=== PATIENT | female | born 1970 | race Caucasian/White ===

== ENCOUNTER → 2016-06-11 | Outpatient (CLI) | payer OTHER ==
--- NOTE | 2016-06-11 17:03 | XR ---
EXAMINATION TYPE: XR hand limited bilateral DATE OF EXAM: 06/11/2016 3:06 PM COMPARISON: NONE HISTORY: Bilateral hand pain TECHNIQUE: 2 views bilateral hands FINDINGS: Left hand: No acute fractures are evident. There is narrowing of the proximal and to lesser degree di stal interphalangeal joint spaces. Soft tissues are normal. Right hand: No acute fractures are evident. Joint spaces and mild narrowing of the proximal interphal angeal joint spaces. Mild narrowing of the distal interphalangeal joint spaces is not excluded. Soft tissues are normal. IMPRESSION: 1. Suggestion of some degenerative changes within the bilateral fingers.
--- NOTE | 2016-06-11 17:04 | XR ---
EXAMINATION TYPE: XR wrist limited bilateral DATE OF EXAM: 06/11/2016 3:07 PM COMPARISON: NONE HISTORY: Pain TECHNIQUE: 2 views bilateral wrists FINDINGS: Left wrist: No acute fractures are evident. Joint spaces are preserved. No fractures are evident. Right wrist: Mild soft tissue swelling may be present. Joint spaces are preserved. No fractures are e vident. IMPRESSION: 1. Mild soft tissue swelling right wrist. 2. No acute osseous abnormality evident bilateral wrists.
== END ==
LOC: RADXRMAIN 14:20
PROVIDERS: ATTEND Internal Medicine
DX: M79.89 Other specified soft tissue disorders (principal)

== ENCOUNTER 2017-03-20 17:47 | Emergency (ER) | payer MEDICAID, OTHER ==
--- NOTE | 2017-03-20 18:21 | ED ---
General Adult HPI - General Chief complaint: Psychiatric Symptoms Stated complaint: Depression Time Seen by Provider: 03/20/17 18:00 Source: patient, RN notes reviewed Mode of arrival: ambulatory Limitations: no limitations - History of Present Illness Initial comments: This is a 46 her old female presents emergency department stating that she wants to harm herself. Patient states she's not sure what she wants to but she just wants to make the pain go away. Patient states she has been fighting with her boyfriend about his drinking for the last week and over the last couple of days is gotten considerably worse. Patient states she just can't stand it anymore and she doesn't know if she stays home if she can be safe. Patient denies any drinking or drug use herself. Patient denies any physical complaints today. Patient denies headache patient denies numbness weakness. Patient denies any abdominal pain patient denies nausea or vomiting. - Related Data Home Medications Medication Instructions Recorded Confirmed rOPINIRole HCL [Requip] 3 mg PO HS 11/09/15 03/20/17 Citalopram Hydrobromide [CeleXA] 20 mg PO DAILY 03/20/17 03/20/17 buPROPion HCL [Wellbutrin XL] 300 mg PO DAILY 03/20/17 03/20/17 buPROPion XL [Wellbutrin Xl] 150 mg PO DAILY 03/20/17 03/20/17 Allergies Allergy/AdvReac Type Severity Reaction Status Date / Time Sulfa (Sulfonamide AdvReac Nausea & Verified 03/20/17 18:22 Antibiotics) Vomiting sulfamethoxazole AdvReac Nausea & Verified 03/20/17 18:22 [From Bactrim] Vomiting trimethoprim [From Bactrim] AdvReac Nausea & Verified 03/20/17 18:22 Vomiting Review of Systems ROS Statement: Those systems with pertinent positive or pertinent negative responses have been documented in the HPI. ROS Other: All systems not noted in ROS Statement are negative. Past Medical History Past Medical History: Pneumonia Additional Past Medical History / Comment(s): HEAD INJURY, kidney stones, RLS., PT STATES NO CHANGES TO HEALTH HX SINCE HX SHE WAS HOSPITALIZED FOR KIDNEY STONE PROCEDURE WITH NEPHROSTOMY TUBE (11/15/2015). History of Any Multi-Drug Resistant Organisms: None Reported Past Surgical History: Section, Tubal Ligation Additional Past Surgical History / Comment(s): rush. nephrostolithotomy, NEPHROSTOLITHOTOMY 11/15/15. Past Anesthesia/Blood Transfusion Reactions: No Reported Reaction Past Psychological History: Anxiety, Depression Smoking Status: Current every day smoker Past Alcohol Use History: None Reported Past Drug Use History: None Reported - Past Family History Father Family Medical History: Coronary Artery Disease (CAD), Diabetes Mellitus Sister(s) Family Medical History: Diabetes Mellitus Mother Family Medical History: Cancer, Diabetes Mellitus Additional Family Medical History / Comment(s): LUNG General Exam - General Exam Comments Initial Comments: GENERAL: Patient is well-developed and well-nourished. Patient is nontoxic and well- hydrated and is in no acute distress. ENT: Neck is soft and supple. No significant lymphadenopathy is noted. Oropharynx is clear. Moist mucous membranes. Neck has full range of motion without eliciting any pain. EYES: The sclera were anicteric and conjunctiva were pink and moist. Extraocular movements were intact and pupils were equal round and reactive to light. Eyelids were unremarkable. PULMONARY: Unlabored respirations. Good breath sounds bilaterally. CARDIOVASCULAR: There is a regular rate and rhythm without any murmurs gallops or rubs. SKIN: Skin is clear with no lesions or rashes and otherwise unremarkable. NEUROLOGIC: Patient is alert and oriented x3. Cranial nerves II through XII are grossly intact. Motor and sensory are also intact. Normal speech, volume and content. Symmetrical smile. MUSCULOSKELETAL: Normal extremities with adequate strength and full range of motion. LYMPHATICS: No significant lymphadenopathy is noted PSYCHIATRIC: Patient is very tearful states she is looking to harm her self and does not feel safe at home by herself. Patient also is very flat affect. Limitations: no limitations Course Vital Signs 03/20/17 03/20/17 17:56 18:48 Temperature 99.2 F Pulse Rate 104 H Respiratory 20 Rate Blood Pressure 209/121 152/94 O2 Sat by Pulse 99 Oximetry Medical Decision Making - Medical Decision Making EPS came down to evaluate the patient and decided after speaking with the psychiatrist that the patient to be discharged home with a follow-up plan that the patient and the patient's sister agreed to - Lab Data Lab Results 03/20/17 03/20/17 Range/Units 18:45 18:45 Urine HCG, Qual Not Detected (Not Detectd) Urine Opiates Screen Not Detected (NotDetected) Ur Oxycodone Screen Not Detected (NotDetected) Urine Methadone Screen Not Detected (NotDetected) Ur Propoxyphene Screen Not Detected (NotDetected) Ur Barbiturates Screen Not Detected (NotDetected) U Tricyclic Antidepress Not Detected (NotDetected) Ur Phencyclidine Scrn Not Detected (NotDetected) Ur Amphetamines Screen Not Detected (NotDetected) U Methamphetamines Scrn Not Detected (NotDetected) U Benzodiazepines Scrn Not Detected (NotDetected) Urine Cocaine Screen Not Detected (NotDetected) U Marijuana (THC) Screen Not Detected (NotDetected) Disposition Clinical Impression: Situational depression Disposition: HOME SELF-CARE Condition: Good Instructions: Depression (ED) Referrals: Ramiro Chávez MD [Primary Care Provider] - 1-2 days Time of Disposition: 20:00
[2017-03-20 20:10] VITALS: BP 164/95; PULSE 86; RESP 16; TEMP 97.6
== END 2017-03-20 20:11 | disposition home or self-care (01) ==
LOC: EC 17:47
DX: F43.21 Adjustment disorder with depressed mood (principal); R45.851 Suicidal ideations; G25.81 Restless legs syndrome; F17.200 Nicotine dependence, unspecified, uncomplicated; Z79.899 Other long term (current) drug therapy; Z88.1 Allergy status to other antibiotic agents; Z88.2 Allergy status to sulfonamides
CPT/HCPCS: 80306; 81025; 82075; 99284

== ENCOUNTER → 2017-11-14 | Outpatient (CLI) | payer SELFPAY ==
--- NOTE | 2017-11-14 11:19 | XR ---
EXAMINATION TYPE: XR finger or thumb bilateral DATE OF EXAM: 11/14/2017 COMPARISON: NONE HISTORY: Pain left second and right fourth fingers. TECHNIQUE: 3 views of the above fingers are obtained. FINDINGS: No acute fracture or dislocation is seen in the right fourth finger or the left second fing er. Joint spaces are preserved. Overlying soft tissue is unremarkable. IMPRESSION: As above.
== END | disposition home or self-care (01) ==
LOC: RADXRMAIN 10:43
PROVIDERS: ATTEND Family Medicine
DX: M79.645 Pain in left finger(s) (principal); M79.644 Pain in right finger(s)

== ENCOUNTER 2018-01-30 13:09 | Observation (INO) | payer OTHER ==
[2018-01-30] MEDS ORDERED: ASPIRIN 81 MG PO STA (13:41)
--- NOTE | 2018-01-30 14:13 | XR ---
EXAMINATION TYPE: XR chest 2V DATE OF EXAM: 01/30/2018 COMPARISON: NONE HISTORY: Chest pain TECHNIQUE: Frontal and lateral views of the chest are obtained. FINDINGS: There is no focal air space opacity, pleural effusion, or pneumothorax seen. Strand-like bibasilar atelectasis is seen at the lung bases. The cardiac silhouette size is upper limits of pj l. The osseous structures are intact. IMPRESSION: Minimal bibasilar subsegmental atelectasis otherwise no acute cardiopulmonary process.
[2018-01-30 14:15] LABS: Basophils % (A) 1 %; Eosinophils # (A) 0.3 k/uL (0-0.7); Eosinophils % (A) 5 %; HCT 43.7 % (34.0-46.0); HGB 14.5 gm/dL (11.4-16.0); Lymphocytes # (A) 2.2 k/uL (1.0-4.8); Lymphocytes % (A) 31 %; MCH 29.5 pg (25.0-35.0); MCHC 33.2 g/dL (31.0-37.0); MCV 88.6 fL (80.0-100.0); Mean Platelet Volume 7.2; Monocytes # (A) 0.3 k/uL (0-1.0); Monocytes % (A) 4 %; Neutrophils # (A) 4.2 k/uL (1.3-7.7); Neutrophils % (A) 58 %; Platelet Count 258 k/uL (150-450); RBC 4.93 m/uL (3.80-5.40); RDW 13.4 % (11.5-15.5); WBC 7.2 k/uL (3.8-10.6)
[2018-01-30 14:25] LABS: Partial Thromboplastin Time 26.6 sec (22.0-30.0); Prothrombin Time 9.9 sec (9.0-12.0)
[2018-01-30 14:29] LABS: Albumin 4.4 g/dL (3.5-5.0); Calcium 9.8 mg/dL (8.4-10.2); Magnesium 2.1 mg/dL (1.6-2.3); Potassium 4.8 mmol/L (3.5-5.1); Total Bilirubin 0.5 mg/dL (0.2-1.3); Total Protein 8.1 g/dL (6.3-8.2)
[2018-01-30] MEDS ORDERED: SODIUM CHLORIDE 0.9% 500 ML 500 ML IV ONE (14:38)
[2018-01-30 14:41] LABS: Creatine Kinase 144 U/L (30-135)
--- NOTE | 2018-01-30 14:46 | ED ---
Chest Pain HPI - General Chief Complaint: Chest Pain Stated Complaint: sharp chest pain Time Seen by Provider: 01/30/18 13:40 Source: patient, RN notes reviewed Mode of arrival: ambulatory Limitations: no limitations - History of Present Illness Initial Comments: This a 47-year-old female sent emergency Department chief complaint of left- sided chest pain. Patient states started around noon. Patient states that she was at work when this pain started she had sharp pain in the medial to left side. Patient states that she's never had any like this in the past. She did admit that radiated to her back and left shoulder region. She states her left shoulder feels heavy. She did become nauseated and diaphoretic when symptoms started. Patient states pain is slightly worse with movement at this time and with deep inspiration. Denies any shortness breath she is a daily smoker. She does have a history of family heart disease but denies hypertension hyperlipidemia and diabetes. Patient denies any trauma. 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 - Related Data Home Medications Medication Instructions Recorded Confirmed Citalopram Hydrobromide [CeleXA] 20 mg PO DAILY 03/20/17 01/30/18 buPROPion HCL [Wellbutrin XL] 300 mg PO DAILY 03/20/17 01/30/18 buPROPion XL [Wellbutrin Xl] 150 mg PO DAILY 03/20/17 01/30/18 Meloxicam [Mobic] 15 mg PO DAILY 01/30/18 01/30/18 rOPINIRole HCL [Requip] 1 mg PO HS 01/30/18 01/30/18 Allergies Allergy/AdvReac Type Severity Reaction Status Date / Time Sulfa (Sulfonamide AdvReac Nausea & Verified 01/30/18 14:24 Antibiotics) Vomiting sulfamethoxazole AdvReac Nausea & Verified 01/30/18 14:24 [From Bactrim] Vomiting trimethoprim [From Bactrim] AdvReac Nausea & Verified 01/30/18 14:24 Vomiting Review of Systems ROS Statement: Those systems with pertinent positive or pertinent negative responses have been documented in the HPI. ROS Other: All systems not noted in ROS Statement are negative. EKG Findings - EKG Comments: EKG Findings:: EKG performed at 13:20 normal sinus rhythm with rate of 72 WI 176 QRS 86 QTC/QTC 396/433 Past Medical History Past Medical History: Pneumonia Additional Past Medical History / Comment(s): HEAD INJURY, kidney stones, RLS. History of Any Multi-Drug Resistant Organisms: None Reported Past Surgical History: Section, Joint Replacement, Tubal Ligation Additional Past Surgical History / Comment(s): rush. nephrostolithotomy, NEPHROSTOLITHOTOMY 11/15/15. nephrostomy tubes and removal, hip replacement Past Anesthesia/Blood Transfusion Reactions: No Reported Reaction Past Psychological History: Anxiety, Depression Smoking Status: Current every day smoker Past Alcohol Use History: None Reported Past Drug Use History: None Reported - Past Family History Father Family Medical History: Coronary Artery Disease (CAD), Diabetes Mellitus Sister(s) Family Medical History: Diabetes Mellitus Mother Family Medical History: Cancer, Diabetes Mellitus Additional Family Medical History / Comment(s): LUNG General Exam Limitations: no limitations General appearance: alert, in no apparent distress Head exam: Present: atraumatic, normocephalic, normal inspection Neck exam: Present: normal inspection, full ROM. Absent: tenderness, meningismus, lymphadenopathy Respiratory exam: Present: normal lung sounds bilaterally, chest wall tenderness. Absent: respiratory distress, wheezes, rales, rhonchi, stridor Cardiovascular Exam: Present: regular rate, normal rhythm, normal heart sounds. Absent: systolic murmur, diastolic murmur, rubs, gallop, clicks GI/Abdominal exam: Present: soft, normal bowel sounds. Absent: distended, tenderness, guarding, rebound, rigid Extremities exam: Present: other (Pulses equal upper and lower extremity) Neurological exam: Present: alert, oriented X3, CN II-XII intact Course Vital Signs 01/30/18 01/30/18 13:10 15:12 Temperature 97.8 F Pulse Rate 76 64 Respiratory 18 18 Rate Blood Pressure 126/83 139/88 O2 Sat by Pulse 97 99 Oximetry Disposition Clinical Impression: Chest pain Disposition: ADMITTED IP TO THIS HOSP Condition: Stable Referrals: Ramiro Chávez MD [Primary Care Provider] - 1-2 days
[2018-01-30 14:53] LABS: Creatine Kinase MB 2.9 ng/mL (0.0-2.4); Troponin I <0.012 ng/mL (0.000-0.034)
--- NOTE | 2018-01-30 15:17 | CT ---
EXAMINATION TYPE: CT chest angio for PE DATE OF EXAM: 01/30/2018 COMPARISON: NONE HISTORY: chest pain CT DLP: 385.9 mGycm. Automated Exposure Control for Dose Reduction was Utilized. CONTRAST: CTA scan of the thorax is performed with IV Contrast, patient injected with 100 mL of Isovue 370, pul monary embolism protocol. MIP Images are created on CT scanner and reviewed. FINDINGS: LUNGS: Elongated right middle lobe were created centimeter peripherally spiculated density abuts the mediastinal border with adjacent 3 mm pulmonary nodule on lung algorithm image 70. Another subpleural 3 mm right middle lobe pulmonary nodule is seen on image 81. There are geographic areas of round gla ss opacity throughout the lungs, more confluent in the left upper lobe posteriorly on image 51 measur ing 7 mm. This could represent a confluent groundglass opacity or true groundglass pulmonary nodule. No pleural effusion is seen. MEDIASTINUM: There is satisfactory enhancement of the pulmonary artery and its branches, there is no CT evidence for pulmonary embolism. There are no greater than 1 cm hilar or mediastinal lymph nodes. No cardiomegaly or pericardial effusion is seen. OTHER: Thyroid gland is diffusely heterogenous and grossly enlarged with the thyroid isthmus measuri ng up to 3.1 cm. There is no tracheal deviation noted. Probable small splenule is seen medial to the [facility] spleen posterior to the left adrenal gland. IMPRESSION: 1. No evidence of pulmonary embolus. 2. Markedly enlarged heterogenous thyroid gland for which full characterization with thyroid ultrasou nd as necessary likely warranting percutaneous biopsy given its size as the isthmus measures up to 3. 1 cm (abnormal 1.0 cm). 3. Diffuse geographic groundglass opacities are nonspecific but can be seen and fluid overload, pneum onitis or multifocal atelectasis. Additionally there is a confluent nodular right middle lobe density that could represent atelectasis or pulmonary nodule. Small pulmonary nodules are seen and therefore short-term follow-up is recommended pending evaluation of the above thyroid abnormality.
[2018-01-30] MEDS ORDERED: NITROGLYCERIN SL TABS 0.4 MG TAB SUBLINGUAL PRN (16:10)
[2018-01-30] MEDS ORDERED: HEPARIN SODIUM,PORCINE 5,000 UNIT/ML 1 ML VIAL IV ONE (16:10)
[2018-01-30] MEDS ORDERED: HEPARIN SOD,PORK IN 0.45% NACL 25,000 UNIT in 0.45% NACL 1 500ML.BAG IV SCH (16:15)
--- NOTE | 2018-01-30 16:59 | P.HPIM ---
History of Present Illness H&P Date: 01/30/18 (Done while covering for Ramiro Chávez) Chief Complaint: Chest pain for 2 days 47-year-old female was seen evaluated examined in the emergency department this patient has been doing well but about 2 days ago started having retrosternal pleuritic-type of chest pain also has some cough with intermittent thick sputum production, patient has been a smoker about 1 pack per day denies any similar episode in the past, on arrival to emergency department patient underwent a computed tomography scan of the chest, no pulmonary embolism was seen him a large nystagmus of the thyroid gland was seen multiple small subcentimeter nodules were seen some groundglass patchy attenuation has been noted as well, patient denies any seizure-like to a loss of consciousness or hemiparesis, denies any night sweats fever or chills, denies any bowel or bladder dysfunction Review of Systems All systems: negative Past Medical History Past Medical History: Pneumonia Additional Past Medical History / Comment(s): HEAD INJURY, kidney stones, RLS. History of Any Multi-Drug Resistant Organisms: None Reported Past Surgical History: Section, Joint Replacement, Tubal Ligation Additional Past Surgical History / Comment(s): rush. nephrostolithotomy, NEPHROSTOLITHOTOMY 11/15/15. nephrostomy tubes and removal, hip replacement Past Anesthesia/Blood Transfusion Reactions: No Reported Reaction Past Psychological History: Anxiety, Depression Smoking Status: Current every day smoker Past Alcohol Use History: None Reported Past Drug Use History: None Reported - Past Family History Father Family Medical History: Coronary Artery Disease (CAD), Diabetes Mellitus Sister(s) Family Medical History: Diabetes Mellitus Mother Family Medical History: Cancer, Diabetes Mellitus Additional Family Medical History / Comment(s): LUNG Medications and Allergies Home Medications Medication Instructions Recorded Confirmed Type Citalopram Hydrobromide [CeleXA] 20 mg PO DAILY 03/20/17 01/30/18 History buPROPion HCL [Wellbutrin XL] 300 mg PO DAILY 03/20/17 01/30/18 History buPROPion XL [Wellbutrin Xl] 150 mg PO DAILY 03/20/17 01/30/18 History Meloxicam [Mobic] 15 mg PO DAILY 01/30/18 01/30/18 History rOPINIRole HCL [Requip] 1 mg PO HS 01/30/18 01/30/18 History Allergies Allergy/AdvReac Type Severity Reaction Status Date / Time Sulfa (Sulfonamide AdvReac Nausea & Verified 01/30/18 14:24 Antibiotics) Vomiting sulfamethoxazole AdvReac Nausea & Verified 01/30/18 14:24 [From Bactrim] Vomiting trimethoprim [From Bactrim] AdvReac Nausea & Verified 01/30/18 14:24 Vomiting Physical Exam Vitals: Vital Signs Temp Pulse Resp BP Pulse Ox 01/30/18 16:46 98.3 F 76 20 120/70 99 01/30/18 16:31 69 20 125/73 99 01/30/18 15:12 64 18 139/88 99 01/30/18 13:10 97.8 F 76 18 126/83 97 Intake and Output 01/30/18 01/30/18 01/30/18 06:59 14:59 22:59 Other: Weight 99.79 kg - Constitutional General appearance: disheveled, mild distress, morbidly obese - EENT Eyes: EOMI, PERRLA, normal appearance ENT: normal oropharynx Ears: bilateral: normal - Neck Carotids: bilateral: upstroke normal Thyroid: bilateral: enlarged (And 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 as seen on CAT scan) - Respiratory Respiratory: bilateral: CTA - Cardiovascular Rhythm: regular Heart sounds: normal: S1, S2 - Gastrointestinal General gastrointestinal: soft - Neurologic Neurologic: CNII-XII intact - Musculoskeletal Musculoskeletal: gait normal, generalized weakness, strength equal bilaterally - Psychiatric Psychiatric: A&O x's 3, appropriate affect, intact judgment & insight Results CBC & Chem 7: 01/30/18 13:47 01/30/18 13:47 Labs: Abnormal Lab Results - Last 24 Hours (Table) 01/30/18 01/30/18 Range/Units 13:47 13:47 Chloride 109 H (98-107) mmol/L BUN 18 H (7-17) mg/dL Creatinine 1.40 H (0.52-1.04) mg/dL Glucose 104 H (74-99) mg/dL Total Creatine Kinase 144 H (30-135) U/L CK-MB (CK-2) 2.9 H (0.0-2.4) ng/mL Lipase 335 H (23-300) U/L Chest x-ray: report reviewed, image reviewed CT scan - chest: report reviewed, image reviewed (Finding as noted above) Assessment and Plan Assessment: Atypical substernal chest pain patient is being admitted into the hospital for cardiovascular evaluation cardiology has been consulted Acute bronchitis will initiate patient on doxycycline and breathing treatments and Medrol Dosepak Interstitial pneumonia needs to exclude influenza and pneumonia we'll send nasopharyngeal swab and start patient on Tamiflu Large thyroid gland patient will need FNA will consider as outpatient Plan: Gentle diuresis Cardio vascular evaluation Broad-spectrum antibiotics Breathing treatment as needed As you home medications The plan as noted above Time with Patient: Greater than 30
[2018-01-30] MEDS ORDERED: IPRATROPIUM-ALBUTEROL 3 ML NEB INHALATION PRN (17:01)
[2018-01-30] MEDS: methylPREDNISolone 4 MG TAB TAPER PO SCH (18:42)
[2018-01-30 20:52] LABS: Creatine Kinase 114 U/L (30-135)
[2018-01-30] MEDS: OSELTAMIVIR 75 MG CAP PO SCH (20:59)
[2018-01-30] MEDS: DOXYCYCLINE 50 MG CAP PO SCH (20:59)
[2018-01-30 21:04] LABS: Creatine Kinase MB 2.4 ng/mL (0.0-2.4); Troponin I <0.012 ng/mL (0.000-0.034)
[2018-01-31 02:18] LABS: Creatine Kinase 110 U/L (30-135)
[2018-01-31 02:32] LABS: Creatine Kinase MB 2.4 ng/mL (0.0-2.4); Troponin I <0.012 ng/mL (0.000-0.034)
[2018-01-31 08:01] LABS: Mean Platelet Volume 7.4; Platelet Count 245 k/uL (150-450)
[2018-01-31 08:23] LABS: Cholesterol 190 mg/dL (<200); HDL Cholesterol 46 mg/dL (40-60); LDL Cholesterol,Calculated 122 mg/dL (0-99); Triglycerides 112 mg/dL (<150)
[2018-01-31] MEDS ORDERED: buPROPion XL 300 MG TAB.ER.24H PO SCH (09:00)
[2018-01-31] MEDS ORDERED: ASPIRIN 325 MG TAB PO SCH (09:00)
[2018-01-31] MEDS ORDERED: CITALOPRAM HYDROBROMIDE 20 MG TAB PO SCH (09:00)
[2018-01-31] MEDS ORDERED: buPROPion XL 150 MG TAB.ER.24H PO SCH (09:00)
[2018-01-31] MEDS: DOXYCYCLINE 50 MG CAP PO SCH (09:07)
[2018-01-31] MEDS: methylPREDNISolone 4 MG TAB TAPER PO SCH (09:07)
[2018-01-31] MEDS: OSELTAMIVIR 75 MG CAP PO SCH (09:07)
--- NOTE | 2018-01-31 10:08 | CONS ---
CONSULTATION Mrs. Friedman is 47-year-old female known history of chronic tobacco use, who presented to the emergency room with symptoms of chest discomfort. Yesterday at work she had tightness in the chest that radiated to the back. The discomfort was worse when she takes a deep breath or when she coughs. She has been coughing up using clear sputum. She felt feverish at home. Had no documented fever. She is a chronic smoker and she has some dyspnea on exertion. She has no dizziness or palpitation. No syncope. She has occasional peripheral edema on the left side. She has no history of PND, orthopnea, or documented history of coronary artery disease. Her coronary risk factors are negative for hypertension, diabetes, or documented hyperlipidemia. She is a smoker about a pack a day. MEDICATION: Include Mobic, Celexa, Wellbutrin, and Requip. REVIEW OF SYSTEMS: Respiratory system: She has dyspnea on exertion and cough with history of chronic tobacco use. GI system: No recent GI bleed. No peptic ulcer disease. system: No dysuria or hematuria. Nervous system: No history of stroke or seizure. PHYSICAL EXAMINATION: A 47-year-old female, alert, oriented, no apparent distress. Blood pressure 124/70 with a heart in 70s. HEAD: Normocephalic. Eyes sclerae anicteric. Neck good upstroke. No bruit. No jugular venous distention. Lungs with mild decrease in breath sounds. No wheezes. HEART: Regular rate and rhythm S1, S2. No S3. No rub appreciated. ABDOMEN: Soft, nontender. Positive bowel sounds. No organomegaly. EXTREMITIES: No edema. Intact distal pulses. LAB DATA: Lab data revealed a troponin less than 0.012 for 3 samples. BUN and creatinine of 18 and 1.4, potassium 4.8, her TSH 4.99. Hemoglobin of 14.5. EKG revealed a sinus mechanism, normal axis, intervals. No acute changes. CT angiogram of the chest revealed no evidence of pulmonary embolism. There is an enlarged heterogeneous thyroid gland. There is a confluent nodule and the right middle lobe density that could represent a pulmonary nodule. IMPRESSION: 1. Chest discomfort atypical for ischemic heart disease probably noncardiac, appears to be respiratory in origin with abnormal CT scan of the chest. 2. Chronic tobacco use. 3. Thyroid gland that will require further workup. RECOMMENDATION: From the cardiac standpoint, I will obtain echocardiogram with Doppler. I will stop the heparin. She can be discharged home from the cardiac standpoint and will be followed as an outpatient. The importance of smoking cessation was discussed with her. DIVYA / ZAHIDA: [id number] /
[2018-01-31 12:04] VITALS: RESP 16
--- NOTE | 2018-01-31 13:28 | ECHOF ---
Referral Reason:chest pain MEASUREMENTS -------- HEIGHT: 165.1 cm WEIGHT: 98.9 kg BP: 124/77 RVIDd: 3.0 cm (< 3.3) IVSd: 1.2 cm (0.6 - 1.1) LVIDd: 4.3 cm (3.9 - 5.3) LVPWd: 1.5 cm (0.6 - 1.1) IVSs: 1.4 cm LVIDs: 3.4 cm LVPWs: 1.5 cm LA Diam: 3.9 cm (2.7 - 3.8) LAESV Index (A-L): 21.73 ml/m Ao Diam: 2.4 cm (2.0 - 3.7) AV Cusp: 1.8 cm (1.5 - 2.6) LA Diam: 3.6 cm (2.7 - 3.8) MV EXCURSION: 20.824 mm (> 18.000) MV EF SLOPE: 116 mm/s (70 - 150) EPSS: 0.2 cm MV E Alcon: 0.78 m/s MV DecT: 158 ms MV A Alcon: 0.85 m/s MV E/A Ratio: 0.91 RAP: 5.00 mmHg RVSP: 12.42 mmHg FINDINGS -------- Sinus rhythm. This was a technically adequate study. The left ventricular size is normal. There is mild concentric left ventricular hypertrophy. Overa ll left ventricular systolic function is normal with, an EF between 55 - 60 %. The right ventricle is normal in size. The left atrial size is normal. The right atrial size is normal. The aortic valve is trileaflet, and appears structurally normal. No aortic stenosis or regurgitation. The mitral valve is normal. Mild mitral regurgitation is present. Mild tricuspid regurgitation present. There is no evidence of pulmonary hypertension. The right v entricular systolic pressure, as measured by Doppler, is 12.42mmHg. There is no pulmonic regurgitation present. The aortic root size is normal. Echo free space represents a pericardial fat pad. CONCLUSIONS -------- 1. Sinus rhythm. 2. The left ventricular size is normal. 3. There is mild concentric left ventricular hypertrophy. 4. Overall left ventricular systolic function is normal with, an EF between 55 - 60 %. 5. The left atrial size is normal. 6. The aortic valve is trileaflet, and appears structurally normal. No aortic stenosis or regurgitati on. 7. Mild mitral regurgitation is present. 8. Mild tricuspid regurgitation present. 9. There is no evidence of pulmonary hypertension. 10. There is no pulmonic regurgitation present. 11. The aortic root size is normal. 12. Echo free space represents a pericardial fat pad. SHEEP BONER: Casi Thomas RDCS
[2018-01-31 16:13] VITALS: BP 117/73; PULSE 76; TEMP 98.5
--- NOTE | 2018-02-01 19:33 | P.DS ---
Providers Date of admission: 01/30/18 16:12 Expected date of discharge: 01/31/18 Attending physician: Sukhwinder Gomez Consults: 01/30/18 16:10 Consult Physician Urgent Consulting Provider: Bijan Perez Consult Reason/Comments: chest pain Do you want consulting provider notified?: Yes Primary care physician: [facility] Course: 47-year-old female was seen evaluated examined in the emergency department this patient has been doing well but about 2 days ago started having retrosternal pleuritic-type of chest pain also has some cough with intermittent thick sputum production, patient has been a smoker about 1 pack per day denies any similar episode in the past, on arrival to emergency department patient underwent a computed tomography scan of the chest, no pulmonary embolism was seen him a large nystagmus of the thyroid gland was seen multiple small subcentimeter nodules were seen some groundglass patchy attenuation has been noted as well, patient denies any seizure-like to a loss of consciousness or hemiparesis, denies any night sweats fever or chills, denies any bowel or bladder dysfunction Patient underwent echocardiogram on 01/31/2018 Ammann ejection fraction 55-60%, RD vascular services felt patient has atypical chest pain symptoms appeared to be more of a respiratory region a shunt influenza A and B was negative, responded well with antibiotics with resolution of pain of significant degree patient is being discharged on oral antibiotics tapering steroids and proton pump inhibitors Pertinent Studies: Please refer to the labs and radiographic studies Procedures: None Patient Condition at Discharge: Good Plan - Discharge Summary Discharge Rx Participant: Yes New Discharge Prescriptions: No Action buPROPion HCL [Wellbutrin XL] 300 mg PO DAILY buPROPion XL [Wellbutrin Xl] 150 mg PO DAILY Citalopram Hydrobromide [CeleXA] 20 mg PO DAILY rOPINIRole HCL [Requip] 1 mg PO HS Meloxicam [Mobic] 15 mg PO DAILY Discharge Medication List Citalopram Hydrobromide [CeleXA] 20 mg PO DAILY 03/20/17 [History] buPROPion HCL [Wellbutrin XL] 300 mg PO DAILY 03/20/17 [History] buPROPion XL [Wellbutrin Xl] 150 mg PO DAILY 03/20/17 [History] Meloxicam [Mobic] 15 mg PO DAILY 01/30/18 [History] rOPINIRole HCL [Requip] 1 mg PO HS 01/30/18 [History] Follow up Appointment(s)/Referral(s): Noel Pope MD [STAFF PHYSICIAN] - 3 Weeks Ramiro Chávez MD [Primary Care Provider] - 1-2 days Sukhwinder Gomez MD [STAFF PHYSICIAN] - 1 Week Discharge Disposition: HOME SELF-CARE
== END 2018-01-31 17:48 | disposition home or self-care (01) ==
LOC: EC 13:09 → 1SOBS 16:12
PROVIDERS: ADMIT Internal Medicine Sleep Medicine; ATTEND Internal Medicine Sleep Medicine
DX: R07.89 Other chest pain (principal); J20.9 Acute bronchitis, unspecified; J84.9 Interstitial pulmonary disease, unspecified; E04.9 Nontoxic goiter, unspecified; G25.81 Restless legs syndrome; R91.8 Other nonspecific abnormal finding of lung field; R11.0 Nausea; F41.9 Anxiety disorder, unspecified; F32.9 Major depressive disorder, single episode, unspecified; F17.210 Nicotine dependence, cigarettes, uncomplicated; E66.01 Morbid (severe) obesity due to excess calories; Z68.36 Body mass index [BMI] 36.0-36.9, adult; Z79.1 Long term (current) use of non-steroidal anti-inflammatories (NSAID); Z79.899 Other long term (current) drug therapy; Z88.1 Allergy status to other antibiotic agents; Z88.2 Allergy status to sulfonamides; Z87.01 Personal history of pneumonia (recurrent); Z98.51 Tubal ligation status; Z87.442 Personal history of urinary calculi; Z87.820 Personal history of traumatic brain injury; Z96.649 Presence of unspecified artificial hip joint; Z82.49 Family history of ischemic heart disease and other diseases of the circulatory system; Z83.3 Family history of diabetes mellitus; Z80.1 Family history of malignant neoplasm of trachea, bronchus and lung
CPT/HCPCS: 96366 ×2; 96376; 96361; 96365; 99285; 36415; 93005; 93306; 80061; 80053; 84443; 82550 ×2; 82553 ×2; 83690; 83735; 84484 ×2; 85025; 85049; 85610; 85730 ×2; 87502; 71046; 71275; G0378 ×2; J1644 ×2; J7509 ×2

== ENCOUNTER 2018-05-25 12:50 | Inpatient (IN) | payer OTHER ==
[2018-05-25 14:33] LABS: Glucose,Whole Blood 514 mg/dL (75-99)
[2018-05-25] MEDS ORDERED: SODIUM CHLORIDE 0.9% 1,000 ML IV ONE (14:34)
--- NOTE | 2018-05-25 14:55 | ED ---
General Adult HPI - General Source: patient, RN notes reviewed Mode of arrival: ambulatory Limitations: no limitations <Raimundo Riddle - Last Filed: 05/25/18 15:44> <Shen Olivares - Last Filed: 05/25/18 15:48> - General Chief complaint: Recheck/Abnormal Lab/Rx Stated complaint: high blood sugar-sent by Time Seen by Provider: 05/25/18 14:14 - History of Present Illness Initial comments: 47-year-old female presents emergency Department with chief complaint of hyperglycemia. Patient was sent to the ER by PCP to be admitted. Patient states she was in the ER recently because she had blurred vision states that they found her to be hypoglycemic give her some insulin. She was at the time her blood glucose was over 800. Patient states that she still has polydipsia polyuria. Patient states that she believes that her sodium is low based on her lab work. Patient states she has some your throat. Patient states is very painful to swallow. (Raimundo Riddle) - Related Data Home Medications Medication Instructions Recorded Confirmed metFORMIN HCL [Glucophage] 500 mg PO BID 05/25/18 05/25/18 rOPINIRole HCL [Requip] 0.5 mg PO HS 05/25/18 05/25/18 Allergies Allergy/AdvReac Type Severity Reaction Status Date / Time Sulfa (Sulfonamide AdvReac Nausea & Verified 05/25/18 14:57 Antibiotics) Vomiting sulfamethoxazole AdvReac Nausea & Verified 05/25/18 14:57 [From Bactrim] Vomiting trimethoprim [From Bactrim] AdvReac Nausea & Verified 05/25/18 14:57 Vomiting Review of Systems ROS Other: All systems not noted in ROS Statement are negative. <Raimundo Riddle - Last Filed: 05/25/18 15:44> ROS Other: All systems not noted in ROS Statement are negative. <Shen Olivares - Last Filed: 05/25/18 15:48> ROS Statement: Those systems with pertinent positive or pertinent negative responses have been documented in the HPI. Past Medical History Past Medical History: Pneumonia Additional Past Medical History / Comment(s): HEAD INJURY/concussion d/t fall at ge 6, kidney stones, past uti's, RLS."hypoparathyroidism",ddd, major depression History of Any Multi-Drug Resistant Organisms: None Reported Past Surgical History: Section, Joint Replacement, Tubal Ligation Additional Past Surgical History / Comment(s): rush. nephrostolithotomy, NEPHROSTOLITHOTOMY 11/15/15. nephrostomy tubes and removal, rt hip replacement, hx parathyroid bx carpel tunnel Past Anesthesia/Blood Transfusion Reactions: No Reported Reaction Additional Past Anesthesia/Blood Transfusion Reaction / Comment(s): clausterphobia Past Psychological History: Anxiety, Depression Smoking Status: Current every day smoker Past Alcohol Use History: None Reported Past Drug Use History: None Reported - Past Family History Father Family Medical History: Coronary Artery Disease (CAD), Diabetes Mellitus Sister(s) Family Medical History: Diabetes Mellitus Mother Family Medical History: Cancer, Diabetes Mellitus Additional Family Medical History / Comment(s): LUNG <Raimundo Riddle - Last Filed: 05/25/18 15:44> General Exam Limitations: no limitations General appearance: alert, in no apparent distress Head exam: Present: atraumatic, normocephalic, normal inspection Eye exam: Present: normal appearance, PERRL, EOMI. Absent: scleral icterus, conjunctival injection, periorbital swelling ENT exam: Present: mucous membranes moist. Absent: normal oropharynx ( Posterior pharynx erythema) Neck exam: Present: normal inspection, full ROM. Absent: tenderness, meningismus, lymphadenopathy Respiratory exam: Present: normal lung sounds bilaterally. Absent: respiratory distress, wheezes, rales, rhonchi, stridor Cardiovascular Exam: Present: regular rate, normal rhythm, normal heart sounds. Absent: systolic murmur, diastolic murmur, rubs, gallop, clicks GI/Abdominal exam: Present: soft, normal bowel sounds. Absent: distended, tenderness, guarding, rebound, rigid <Raimundo Riddle - Last Filed: 05/25/18 15:44> Course <Raimundo Riddle - Last Filed: 05/25/18 15:44> <Shen Olivares - Last Filed: 05/25/18 15:48> Vital Signs 05/25/18 05/25/18 13:32 14:54 Temperature 98.0 F 97.9 F Pulse Rate 91 78 Respiratory 20 18 Rate Blood Pressure 154/91 110/88 O2 Sat by Pulse 96 97 Oximetry - Reevaluation(s) Reevaluation #1: 05/25/18 15:48 Case reviewed with practitioner in [facility]. Case also discussed with Ramiro Roper who will admit his patient. (Shen Olivares) Medical Decision Making - Lab Data Result diagrams: 05/25/18 14:45 05/25/18 14:45 <Raimundo Riddle - Last Filed: 05/25/18 15:44> - Lab Data Result diagrams: 05/25/18 14:45 05/25/18 14:45 <Shen Olivares - Last Filed: 05/25/18 15:48> - Medical Decision Making 47-year-old female presented for admission for hyperglycemia. Patient's blood glucose is over 500. Patient was given 1 L of fluid was started at 150 an hour and will placed on insulin sliding scale. (Raimundo Riddle) - Lab Data Lab Results 05/25/18 05/25/18 05/25/18 Range/Units 14:30 14:45 14:45 WBC 5.3 (3.8-10.6) k/uL RBC 4.92 (3.80-5.40) m/uL Hgb 14.1 (11.4-16.0) gm/dL Hct 41.6 (34.0-46.0) % MCV 84.5 (80.0-100.0) fL MCH 28.6 (25.0-35.0) pg MCHC 33.8 (31.0-37.0) g/dL RDW 13.1 (11.5-15.5) % Plt Count 213 (150-450) k/uL Neutrophils % 54 % Lymphocytes % 37 % Monocytes % 3 % Eosinophils % 4 % Basophils % 1 % Neutrophils # 2.9 (1.3-7.7) k/uL Lymphocytes # 1.9 (1.0-4.8) k/uL Monocytes # 0.2 (0-1.0) k/uL Eosinophils # 0.2 (0-0.7) k/uL Basophils # 0.0 (0-0.2) k/uL Sodium 132 L (137-145) mmol/L Potassium 4.4 (3.5-5.1) mmol/L Chloride 96 L (98-107) mmol/L Carbon Dioxide 25 (22-30) mmol/L Anion Gap 11 mmol/L BUN 15 (7-17) mg/dL Creatinine 1.30 H (0.52-1.04) mg/dL Est GFR (CKD-EPI)AfAm 57 (>60 ml/min/1.73 sqM) Est GFR (CKD-EPI)NonAf 49 (>60 ml/min/1.73 sqM) Glucose 543 H* (74-99) mg/dL POC Glucose (mg/dL) 514 H (75-99) mg/dL POC Glu Digital Asset Manager ID Emily Gomez Calcium 9.6 (8.4-10.2) mg/dL Magnesium 1.8 (1.6-2.3) mg/dL Total Bilirubin 0.6 (0.2-1.3) mg/dL AST 46 H (14-36) U/L ALT 56 H (9-52) U/L Alkaline Phosphatase 315 H (38-126) U/L Total Protein 7.8 (6.3-8.2) g/dL Albumin 4.1 (3.5-5.0) g/dL Urine Color Urine Appearance (Clear) Urine pH (5.0-8.0) Ur Specific [place]may (1.001-1.035) Urine Protein (Negative) Urine Glucose (UA) (Negative) Urine Ketones (Negative) Urine Blood (Negative) Urine Nitrite (Negative) Urine Bilirubin (Negative) Urine Urobilinogen (<2.0) mg/dL Ur Leukocyte Esterase (Negative) Urine RBC (0-5) /hpf Urine WBC (0-5) /hpf Ur Squamous Epith Cells (0-4) /hpf Acetone, Qual Negative (Negative) Heterophile Antibody (Negative) 05/25/18 05/25/18 Range/Units 14:45 14:45 WBC (3.8-10.6) k/uL RBC (3.80-5.40) m/uL Hgb (11.4-16.0) gm/dL Hct (34.0-46.0) % MCV (80.0-100.0) fL MCH (25.0-35.0) pg MCHC (31.0-37.0) g/dL RDW (11.5-15.5) % Plt Count (150-450) k/uL Neutrophils % % Lymphocytes % % Monocytes % % Eosinophils % % Basophils % % Neutrophils # (1.3-7.7) k/uL Lymphocytes # (1.0-4.8) k/uL Monocytes # (0-1.0) k/uL Eosinophils # (0-0.7) k/uL Basophils # (0-0.2) k/uL Sodium (137-145) mmol/L Potassium (3.5-5.1) mmol/L Chloride (98-107) mmol/L Carbon Dioxide (22-30) mmol/L Anion Gap mmol/L BUN (7-17) mg/dL Creatinine (0.52-1.04) mg/dL Est GFR (CKD-EPI)AfAm (>60 ml/min/1.73 sqM) Est GFR (CKD-EPI)NonAf (>60 ml/min/1.73 sqM) Glucose (74-99) mg/dL POC Glucose (mg/dL) (75-99) mg/dL POC Glu Digital Asset Manager ID Calcium (8.4-10.2) mg/dL Magnesium (1.6-2.3) mg/dL Total Bilirubin (0.2-1.3) mg/dL AST (14-36) U/L ALT (9-52) U/L Alkaline Phosphatase (38-126) U/L Total Protein (6.3-8.2) g/dL Albumin (3.5-5.0) g/dL Urine Color Light Yellow Urine Appearance Clear (Clear) Urine pH 6.0 (5.0-8.0) Ur Specific [place]may 1.017 (1.001-1.035) Urine Protein 1+ H (Negative) Urine Glucose (UA) 4+ H (Negative) Urine Ketones Negative (Negative) Urine Blood Trace H (Negative) Urine Nitrite Negative (Negative) Urine Bilirubin Negative (Negative) Urine Urobilinogen <2.0 (<2.0) mg/dL Ur Leukocyte Esterase Large H (Negative) Urine RBC 25 H (0-5) /hpf Urine WBC 70 H (0-5) /hpf Ur Squamous Epith Cells 1 (0-4) /hpf Acetone, Qual (Negative) Heterophile Antibody Negative (Negative) Disposition <Raimundo Riddle - Last Filed: 05/25/18 15:44> <Shen Olivares - Last Filed: 05/25/18 15:48> Clinical Impression: UTI (urinary tract infection), Diabetes mellitus, new onset, Hyperglycemia Disposition: ADMITTED IP TO THIS HOSP Condition: Fair Referrals: Ramiro Chávez MD [Primary Care Provider] - 1-2 days
[2018-05-25 15:14] LABS: Appearance,Urine Clear (Clear); Bilirubin,Urine Negative (Negative); Blood,Urine Trace (Negative); Color,Urine Light Yellow; Glucose,Urine (UA) 4+ (Negative); Ketones,Urine Negative (Negative); Leukocyte Esterase,Urine Large (Negative); Nitrite,Urine Negative (Negative); Protein,Urine 1+ (Negative); RBC,Urine 25 /hpf (0-5); Specific Gravity,Urine 1.017 (1.001-1.035); Squamous Epithelial Cell,Urine 1 /hpf (0-4); Urobilinogen,Urine <2.0 mg/dL (<2.0); WBC,Urine 70 /hpf (0-5)
[2018-05-25 15:16] LABS: Basophils % (A) 1 %; Eosinophils # (A) 0.2 k/uL (0-0.7); Eosinophils % (A) 4 %; HCT 41.6 % (34.0-46.0); HGB 14.1 gm/dL (11.4-16.0); Lymphocytes # (A) 1.9 k/uL (1.0-4.8); Lymphocytes % (A) 37 %; MCH 28.6 pg (25.0-35.0); MCHC 33.8 g/dL (31.0-37.0); MCV 84.5 fL (80.0-100.0); Monocytes # (A) 0.2 k/uL (0-1.0); Monocytes % (A) 3 %; Neutrophils # (A) 2.9 k/uL (1.3-7.7); Neutrophils % (A) 54 %; Platelet Count 213 k/uL (150-450); RBC 4.92 m/uL (3.80-5.40); RDW 13.1 % (11.5-15.5); WBC 5.3 k/uL (3.8-10.6)
[2018-05-25 15:24] LABS: ALT 56 U/L (9-52); AST 46 U/L (14-36); Albumin 4.1 g/dL (3.5-5.0); Alkaline Phosphatase 315 U/L (38-126); Anion Gap 11 mmol/L; Blood Urea Nitrogen 15 mg/dL (7-17); Calcium 9.6 mg/dL (8.4-10.2); Carbon Dioxide 25 mmol/L (22-30); Chloride 96 mmol/L (98-107); Magnesium 1.8 mg/dL (1.6-2.3); Potassium 4.4 mmol/L (3.5-5.1); Sodium 132 mmol/L (137-145); Total Bilirubin 0.6 mg/dL (0.2-1.3); Total Protein 7.8 g/dL (6.3-8.2)
[2018-05-25 15:30] LABS: Glucose 543 mg/dL (74-99)
[2018-05-25] MEDS ORDERED: NALOXONE 0.4 MG/ML 1 ML VIAL IV PRN (15:46)
[2018-05-25] MEDS ORDERED: ONDANSETRON 4 MG/2 ML VIAL IVP PRN (15:47)
[2018-05-25] MEDS ORDERED: ACETAMINOPHEN TAB 325 MG TAB PO PRN (15:47)
[2018-05-25] MEDS: SODIUM CHLORIDE 0.9% 1,000 ML IV SCH (16:00)
[2018-05-25 16:49] LABS: Glucose,Whole Blood >600 mg/dL (75-99)
[2018-05-25] MEDS ORDERED: INSULIN ASPART (NovoLOG) 100 UNIT/ML VIAL SQ STA (16:51)
[2018-05-25 17:43] LABS: Glucose,Whole Blood >600 mg/dL (75-99)
[2018-05-25 17:43] LABS: Glucose,Whole Blood >600 mg/dL (75-99)
[2018-05-25] MEDS ORDERED: INSULIN ASPART (NovoLOG) 100 UNIT/ML VIAL SQ ONE (18:47)
[2018-05-25] MEDS: INSULIN ASPART (NovoLOG) 100 UNIT/ML VIAL SQ SCH ×2 (18:53→20:51)
[2018-05-25 20:50] LABS: Glucose,Whole Blood 363 mg/dL (75-99)
[2018-05-25] MEDS: INSULIN DETEMIR (LEVEMIR) 100 UNIT/ML SYR SQ SCH (20:51)
[2018-05-25] MEDS ORDERED: INSULIN DETEMIR (LEVEMIR) 100 UNIT/ML SYR SQ SCH (21:00)
[2018-05-25 21:04] VITALS: BMI 34.8
[2018-05-26] MEDS: SODIUM CHLORIDE 0.9% 1,000 ML IV SCH ×3 (06:32→21:33)
[2018-05-26 07:08] LABS: Glucose,Whole Blood 456 mg/dL (75-99)
[2018-05-26] MEDS: INSULIN DETEMIR (LEVEMIR) 100 UNIT/ML SYR SQ SCH ×2 (08:21→21:32)
[2018-05-26] MEDS: INSULIN ASPART (NovoLOG) 100 UNIT/ML VIAL SQ SCH ×7 (08:22→21:34)
[2018-05-26 10:09] LABS: Cholesterol 146 mg/dL (<200); HDL Cholesterol 23 mg/dL (40-60)
[2018-05-26 10:20] LABS: Triglycerides 572 mg/dL (<150)
[2018-05-26 11:54] LABS: Glucose,Whole Blood 341 mg/dL (75-99)
[2018-05-26] MEDS: NICOTINE 21MG/24HR PATCH TRANSDERM SCH (12:01)
[2018-05-26 16:52] LABS: Glucose,Whole Blood 454 mg/dL (75-99)
--- NOTE | 2018-05-26 17:35 | HP ---
HISTORY AND PHYSICAL CHIEF COMPLAINT: A 47-year-old white female admitted with severe hyperglycemia in the 600s and hyponatremia, severe dizziness and blurred vision. She was recently discharged with sugar over 800 from another hospital. She states she has difficulty swallowing, some sore throat. She has not been taking any medicines for diabetes ever. She takes Requip for restless legs syndrome. ALLERGIES: SULFA, BACTRIM. REVIEW OF SYSTEMS: Fourteen-point review of systems negative except for mentioned in HPI. FAMILY HISTORY: Father with coronary artery disease, diabetes mellitus. Sister with diabetes mellitus. Mother with cancer, diabetes mellitus. PHYSICAL EXAMINATION: VITAL SIGNS: Temperature 98, pulse 78 to 91, respiratory rate 18 to 20, blood pressure 110 to 150s over 80s to 90s, oxygen 96% to 97% on room air. CARDIOVASCULAR: S1, S2. LUNGS: Transmitted upper airway sounds. HEMATOLOGY: Negative Homans. PSYCH: Fair mood and affect. OPHTHALMOLOGIC: Pupils equal, round, reactive to light and accommodation. She wears glasses. LABS: BUN is 15, creatinine 1.3. Triglycerides 543. Sodium 132. UA shows large leukocytes, large white cells, large red cells. ASSESSMENT: 1. Urinary tract infection. 2. Dehydration. 3. Uncontrolled diabetes mellitus. 4. Hyponatremia. Fluid rehydration. Insulin will be started. Please see further orders in the chart. MMODL / IJN: [id number] /
[2018-05-26 20:02] LABS: Glucose,Whole Blood 406 mg/dL (75-99)
[2018-05-27 01:34] LABS: Glucose,Whole Blood 276 mg/dL (75-99)
[2018-05-27] MEDS: SODIUM CHLORIDE 0.9% 1,000 ML IV SCH ×2 (05:22→17:37)
[2018-05-27 07:17] LABS: Glucose,Whole Blood 270 mg/dL (75-99)
[2018-05-27] MEDS: INSULIN ASPART (NovoLOG) 100 UNIT/ML VIAL SQ SCH ×7 (07:42→22:06)
[2018-05-27] MEDS: NICOTINE 21MG/24HR PATCH TRANSDERM SCH (07:46)
[2018-05-27] MEDS: INSULIN DETEMIR (LEVEMIR) 100 UNIT/ML SYR SQ SCH ×2 (09:49→22:07)
[2018-05-27 10:04] LABS: Basophils % (A) 1 %; Eosinophils # (A) 0.2 k/uL (0-0.7); Eosinophils % (A) 4 %; HCT 37.8 % (34.0-46.0); HGB 12.5 gm/dL (11.4-16.0); Lymphocytes # (A) 1.7 k/uL (1.0-4.8); Lymphocytes % (A) 35 %; MCH 28.4 pg (25.0-35.0); Mean Platelet Volume 8.1; Monocytes # (A) 0.2 k/uL (0-1.0); Monocytes % (A) 5 %; Neutrophils # (A) 2.7 k/uL (1.3-7.7); Neutrophils % (A) 54 %; Platelet Count 184 k/uL (150-450); RBC 4.39 m/uL (3.80-5.40); RDW 13.3 % (11.5-15.5)
[2018-05-27 10:21] LABS: Albumin 3.1 g/dL (3.5-5.0); Calcium 8.9 mg/dL (8.4-10.2); Potassium 4.1 mmol/L (3.5-5.1); Total Bilirubin 0.4 mg/dL (0.2-1.3); Total Protein 6.1 g/dL (6.3-8.2)
[2018-05-27 11:55] LABS: Glucose,Whole Blood 459 mg/dL (75-99)
[2018-05-27 15:45] LABS: Cholesterol 142 mg/dL (<200); HDL Cholesterol 21 mg/dL (40-60); Triglycerides 449 mg/dL (<150)
--- NOTE | 2018-05-27 16:03 | PN ---
PROGRESS NOTE SUBJECTIVE: [id number]-old white female admitted with UTI, new-onset diabetes. Awaiting urine culture at this point. Remains on Rocephin, Levemir, NovoLog, Glucophage, Habitrol patch, Requip, we are starting the metformin at 1000 b.i.d. Her sugars are still in the 400s to 500s. Waiting for hemoglobin A1c and lipid panel. CARDIOVASCULAR: S1, S2. LUNGS: Transmitted upper airway sounds. HEMATOLOGY: Negative Homans. PSYCH: Fair mood and affect. ASSESSMENT: 1. Uncontrolled diabetes mellitus. 2. Urinary tract infection. 3. Chronic renal disease, stage III. Add Glucophage today. Possible discharge home tomorrow. Insulin training continues. Remain on IV antibiotics. Currently on IV Rocephin today. Await urine cultures. MMODL / IJN: [id number] /
[2018-05-27 17:34] LABS: Glucose,Whole Blood 290 mg/dL (75-99)
[2018-05-27] MEDS: metFORMIN 500 MG TAB PO SCH (18:05)
[2018-05-27 20:18] LABS: Glucose,Whole Blood 240 mg/dL (75-99)
[2018-05-28 01:59] LABS: Glucose,Whole Blood 240 mg/dL (75-99)
[2018-05-28 04:56] VITALS: BP 140/89; PULSE 80; TEMP 98
[2018-05-28] MEDS: SODIUM CHLORIDE 0.9% 1,000 ML IV SCH ×2 (05:58→12:52)
[2018-05-28 07:05] LABS: Glucose,Whole Blood 224 mg/dL (75-99)
[2018-05-28] MEDS: NICOTINE 21MG/24HR PATCH TRANSDERM SCH (08:08)
[2018-05-28] MEDS: metFORMIN 500 MG TAB PO SCH (08:08)
[2018-05-28] MEDS: INSULIN ASPART (NovoLOG) 100 UNIT/ML VIAL SQ SCH ×4 (08:08→12:51)
[2018-05-28] MEDS: INSULIN DETEMIR (LEVEMIR) 100 UNIT/ML SYR SQ SCH (09:09)
[2018-05-28 10:03] LABS: Basophils # (A) 0.1 k/uL (0-0.2); Basophils % (A) 1 %; Eosinophils # (A) 0.2 k/uL (0-0.7); Eosinophils % (A) 4 %; HCT 38.7 % (34.0-46.0); HGB 12.7 gm/dL (11.4-16.0); Lymphocytes % (A) 37 %; MCH 28.1 pg (25.0-35.0); MCHC 32.8 g/dL (31.0-37.0); MCV 85.4 fL (80.0-100.0); Monocytes # (A) 0.3 k/uL (0-1.0); Monocytes % (A) 5 %; Neutrophils # (A) 2.8 k/uL (1.3-7.7); Neutrophils % (A) 52 %; Platelet Count 194 k/uL (150-450); RBC 4.54 m/uL (3.80-5.40); RDW 13.5 % (11.5-15.5); WBC 5.4 k/uL (3.8-10.6)
[2018-05-28 10:27] LABS: Albumin 3.2 g/dL (3.5-5.0); Calcium 9.2 mg/dL (8.4-10.2); Potassium 4.1 mmol/L (3.5-5.1); Total Bilirubin 0.4 mg/dL (0.2-1.3); Total Protein 6.3 g/dL (6.3-8.2)
[2018-05-28 10:30] VITALS: RESP 18
[2018-05-28 12:06] LABS: Glucose,Whole Blood 295 mg/dL (75-99)
== END 2018-05-28 14:51 | disposition home or self-care (01) | DRG 638 ==
LOC: EC 12:50 → 4MS4W 15:49 → OBSVTOIN 05-26 14:24 → 4MS4W 05-26 17:47
PROVIDERS: ADMIT Family Medicine; ATTEND Family Medicine
DX: E11.65 Type 2 diabetes mellitus with hyperglycemia (principal); E87.1 Hypo-osmolality and hyponatremia; N39.0 Urinary tract infection, site not specified; E11.22 Type 2 diabetes mellitus with diabetic chronic kidney disease; E20.9 Hypoparathyroidism, unspecified; E86.0 Dehydration; F17.210 Nicotine dependence, cigarettes, uncomplicated; G25.81 Restless legs syndrome; N18.3 Chronic kidney disease, stage 3 (moderate); R13.10 Dysphagia, unspecified; Z80.9 Family history of malignant neoplasm, unspecified; Z82.49 Family history of ischemic heart disease and other diseases of the circulatory system; Z83.3 Family history of diabetes mellitus; Z87.440 Personal history of urinary (tract) infections; Z87.442 Personal history of urinary calculi; Z96.641 Presence of right artificial hip joint; Z88.2 Allergy status to sulfonamides; H53.8 Other visual disturbances; Z87.01 Personal history of pneumonia (recurrent); Z87.820 Personal history of traumatic brain injury; E21.3 Hyperparathyroidism, unspecified; F40.240 Claustrophobia; F32.9 Major depressive disorder, single episode, unspecified; F41.9 Anxiety disorder, unspecified
CPT/HCPCS: 36415; 80053; 80061; 81001; 82009; 82947; 83036; 83735; 85025; 86308; 87081; 87086; 87430; 96365; 99285

== ENCOUNTER 2018-09-16 22:21 | Emergency (ER) | payer OTHER ==
[2018-09-16] MEDS ORDERED: SODIUM CHLORIDE 0.9% 1,000 ML IV STA (22:52)
[2018-09-16] MEDS ORDERED: IPRATROPIUM-ALBUTEROL 3 ML NEB INHALATION STA (22:53)
--- NOTE | 2018-09-16 23:03 | ED ---
General Adult HPI - General Chief complaint: Upper Respiratory Infection Stated complaint: Diff breathing Time Seen by Provider: 09/16/18 22:42 Source: patient, family, RN notes reviewed, old records reviewed Mode of arrival: ambulatory Limitations: no limitations - History of Present Illness Initial comments: 47-year-old male patient presents to ED approximately 3 days of cough congestion shortness of breath. Patient also reports that she does have a substernal chest pain with coughing as well as some substernal pleuritic chest pain while taking a deep breath. Patient denies any history of blood clots or history of heart disease. She denies any chest pain at baseline. Systemic: Pt denies fatigue, fever/chills, rash. Pt denies weakness, night s weats, weight loss. Neuro: Pt denies headache, visual disturbances, syncope or pre-syncope. HEENT: Pt denies ocular discharge or irritation, otalgia, rhinorrhea, pharyngitis or notable lymphadenopathy. Cardiopulmonary: Pt denies heart palpitations, dyspnea on exertion. Abdominal/GI: Pt denies abdominal pain, n/v/d. : Pt denies dysuria, burning w/ urination, frequency/urgency. Denies new onset urinary or bowel incontinence. MSK: Pt denies myalgia, loss of strength or function in extremities. Neuro: Pt denies new onset weakness, paresthesias. - Related Data Home Medications Medication Instructions Recorded Confirmed Atorvastatin [Lipitor] 20 mg PO HS 09/16/18 09/16/18 Citalopram Hydrobromide [CeleXA] 20 mg PO DAILY 09/16/18 09/16/18 Folic Acid 1 mg PO DAILY 09/16/18 09/16/18 Losartan [Cozaar] 50 mg PO HS 09/16/18 09/16/18 Repaglinide [Prandin] 0.5 mg PO AC-TID 09/16/18 09/16/18 buPROPion HCL [Wellbutrin XL] 300 mg PO DAILY 09/16/18 09/16/18 buPROPion XL [Wellbutrin Xl] 150 mg PO DAILY 09/16/18 09/16/18 metFORMIN HCL [Glucophage] 1,000 mg PO BID 09/16/18 09/16/18 rOPINIRole HCL [Requip] 1 mg PO HS 09/16/18 09/16/18 Previous Rx's Medication Instructions Recorded Albuterol Inhaler [Ventolin Hfa 1 - 2 puff INHALATION Q4-6H PRN #1 09/17/18 Inhaler] inhaler Azithromycin [Zithromax Z-pack] 0 mg PO DIRECTED #6 tab 09/17/18 predniSONE 50 mg PO DAILY #5 tab 09/17/18 Allergies Allergy/AdvReac Type Severity Reaction Status Date / Time Sulfa (Sulfonamide AdvReac Nausea & Verified 09/16/18 23:01 Antibiotics) Vomiting sulfamethoxazole AdvReac Nausea & Verified 09/16/18 23:01 [From Bactrim] Vomiting trimethoprim [From Bactrim] AdvReac Nausea & Verified 09/16/18 23:01 Vomiting Review of Systems ROS Statement: Those systems with pertinent positive or pertinent negative responses have been documented in the HPI. ROS Other: All systems not noted in ROS Statement are negative. Past Medical History Past Medical History: Diabetes Mellitus, Pneumonia Additional Past Medical History / Comment(s): HEAD INJURY/concussion d/t fall at ge 6, kidney stones, past uti's, RLS."hypoparathyroidism",ddd, major depression History of Any Multi-Drug Resistant Organisms: None Reported Past Surgical History: Section, Joint Replacement, Tubal Ligation Additional Past Surgical History / Comment(s): rush. nephrostolithotomy, NEPHROSTOLITHOTOMY 11/15/15. nephrostomy tubes and removal, rt hip replacement, hx parathyroid bx carpel tunnel Past Anesthesia/Blood Transfusion Reactions: No Reported Reaction Additional Past Anesthesia/Blood Transfusion Reaction / Comment(s): clausterphobia Past Psychological History: Anxiety, Depression Smoking Status: Current every day smoker Past Alcohol Use History: None Reported Past Drug Use History: None Reported - Past Family History Father Family Medical History: Coronary Artery Disease (CAD), Diabetes Mellitus Sister(s) Family Medical History: Diabetes Mellitus Mother Family Medical History: Cancer, Diabetes Mellitus Additional Family Medical History / Comment(s): LUNG General Exam - General Exam Comments Initial Comments: Constitutional: NAD, AOX3, Pt has pleasant affect. HEENT: NC/AT, trachea midline, neck supple, no lymphadenopathy. Posterior pharynx non erythematous, without exudates. External ears appear normal, without discharge. Mucous membranes moist. Eyes PERRLA, EOM intact. There is no scleral icterus. No pallor noted. Cardiopulmonary: RRR, no murmurs, rubs or gallops, no JVD noted. Mild wheezing noted in anterior lung valdez, resolved after breathing treatment. No peripheral edema. Abdominal exam: Abdomen soft and non-distended. Abdomen non-tender to palpation in all 4 quadrants. Bowel sounds active in LLQ. No hepatosplenomegaly. No ecchymosis Neuro: CN II-XII grossly intact. No nuchal rigidity. No raccon eyes, no chacon sign, no hemotympanum. No cervical spinal tenderness. MSK: No posterior calf tenderness bilaterally, homans sign negative bilaterally. Posterior tibialis and radial pulse +2 bilaterally. Sensation intact in upper and lower extremities. Full active ROM in upper and lower extremities, 5/5 stregnth. Limitations: no limitations Course Vital Signs 09/16/18 09/16/18 09/16/18 22:33 23:04 23:11 Temperature 98.6 F Pulse Rate 86 72 75 Respiratory 22 18 18 Rate Blood Pressure 125/80 O2 Sat by Pulse 94 L Oximetry 09/17/18 01:23 Temperature 97.9 F Pulse Rate 82 Respiratory 18 Rate Blood Pressure 149/91 O2 Sat by Pulse 94 L Oximetry Medical Decision Making - Medical Decision Making 47-year-old male patient presents to ED approximately 3 days of cough congestion shortness of breath. Patient also reports that she does have a substernal chest pain with coughing as well as some substernal pleuritic chest pain while taking a deep breath. Patient denies any history of blood clots or history of heart disease. She denies any chest pain at baseline. Patient vital signs stable, afebrile. Physical exam displayed mild wheezing in anterior lung valdez, resolved after breathing treatment. Laboratory investigations revealed nonspecific CBC, CMP. Creatinine at baseline. Coagulation studies non- impressive. D-dimer mildly elevated at 0.55. BNP within normal except for limits. Troponin negative 2. Chest x-ray revealed diffuse airspace opacities which may represent pulmonary edema versus infectious process. CTA revealed no pulmonary embolism. Mosaic attenuation of the lungs with patchy groundglass opacities findings are present and inflammatory infectious process with probable air-trapping from small airway disease. EKG not concerning for acute ischemia. Patient administered azithromycin and ED. Patient discharged with azithromycin, albuterol and prednsone. Pt will f/u with PCP in 1-2 days. Pt will return to ER if condition worsens. Case discussed with Dr. Mckinney. - Lab Data Result diagrams: 09/16/18 23:24 09/16/18 23:24 Lab Results 09/16/18 09/16/18 09/16/18 Range/Units 23:21 23:24 23:24 WBC 8.0 (3.8-10.6) k/uL RBC 4.96 (3.80-5.40) m/uL Hgb 14.4 (11.4-16.0) gm/dL Hct 43.7 (34.0-46.0) % MCV 88.1 (80.0-100.0) fL MCH 29.0 (25.0-35.0) pg MCHC 33.0 (31.0-37.0) g/dL RDW 14.0 (11.5-15.5) % Plt Count 234 (150-450) k/uL Neutrophils % 54 % Lymphocytes % 35 % Monocytes % 5 % Eosinophils % 4 % Basophils % 1 % Neutrophils # 4.3 (1.3-7.7) k/uL Lymphocytes # 2.8 (1.0-4.8) k/uL Monocytes # 0.4 (0-1.0) k/uL Eosinophils # 0.3 (0-0.7) k/uL Basophils # 0.1 (0-0.2) k/uL PT (9.0-12.0) sec INR (<1.2) APTT (22.0-30.0) sec D-Dimer (<0.60) mg/L FEU Sodium 140 (137-145) mmol/L Potassium 4.4 (3.5-5.1) mmol/L Chloride 106 (98-107) mmol/L Carbon Dioxide 24 (22-30) mmol/L Anion Gap 10 mmol/L BUN 15 (7-17) mg/dL Creatinine 1.32 H (0.52-1.04) mg/dL Est GFR (CKD-EPI)AfAm 56 (>60 ml/min/1.73 sqM) Est GFR (CKD-EPI)NonAf 48 (>60 ml/min/1.73 sqM) Glucose 136 H (74-99) mg/dL Calcium 9.7 (8.4-10.2) mg/dL Magnesium 1.9 (1.6-2.3) mg/dL Total Bilirubin 0.3 (0.2-1.3) mg/dL AST 26 (14-36) U/L ALT 20 (9-52) U/L Alkaline Phosphatase 156 H (38-126) U/L Troponin I (0.000-0.034) ng/mL NT-Pro-B Natriuret Pep 53 pg/mL Total Protein 7.6 (6.3-8.2) g/dL Albumin 4.4 (3.5-5.0) g/dL 09/16/18 09/16/18 09/17/18 Range/Units 23:24 23:24 01:31 WBC (3.8-10.6) k/uL RBC (3.80-5.40) m/uL Hgb (11.4-16.0) gm/dL Hct (34.0-46.0) % MCV (80.0-100.0) fL MCH (25.0-35.0) pg MCHC (31.0-37.0) g/dL RDW (11.5-15.5) % Plt Count (150-450) k/uL Neutrophils % % Lymphocytes % % Monocytes % % Eosinophils % % Basophils % % Neutrophils # (1.3-7.7) k/uL Lymphocytes # (1.0-4.8) k/uL Monocytes # (0-1.0) k/uL Eosinophils # (0-0.7) k/uL Basophils # (0-0.2) k/uL PT 10.1 (9.0-12.0) sec INR 0.9 (<1.2) APTT 25.4 (22.0-30.0) sec D-Dimer 0.55 (<0.60) mg/L FEU Sodium (137-145) mmol/L Potassium (3.5-5.1) mmol/L Chloride (98-107) mmol/L Carbon Dioxide (22-30) mmol/L Anion Gap mmol/L BUN (7-17) mg/dL Creatinine (0.52-1.04) mg/dL Est GFR (CKD-EPI)AfAm (>60 ml/min/1.73 sqM) Est GFR (CKD-EPI)NonAf (>60 ml/min/1.73 sqM) Glucose (74-99) mg/dL Calcium (8.4-10.2) mg/dL Magnesium (1.6-2.3) mg/dL Total Bilirubin (0.2-1.3) mg/dL AST (14-36) U/L ALT (9-52) U/L Alkaline Phosphatase (38-126) U/L Troponin I <0.012 <0.012 (0.000-0.034) ng/mL NT-Pro-B Natriuret Pep pg/mL Total Protein (6.3-8.2) g/dL Albumin (3.5-5.0) g/dL - EKG Data -: EKG Interpreted by Me (and Dr. Mckinney) EKG Comments: Ventricular rate 77, IN: 62, QRS 80, QT/QTC 376 as 425. No sinus rhythm, normal EKG, no concern for acute ischemia. Disposition Clinical Impression: Pneumonia Disposition: HOME SELF-CARE Condition: Stable Instructions (If sedation given, give patient instructions): Pneumonia (ED) Additional Instructions: Patient to adhere to previously discussed treatment plan and will take medication(s) as directed. Patient to follow up with PCP in 1-2 days. Patient to return to ED if symptoms do not improve. Take medication as directed. Follow up with primary care provider tomorrow. Return to ER if condition worsens. Prescriptions: predniSONE 50 mg PO DAILY #5 tab Albuterol Inhaler [Ventolin Hfa Inhaler] 1 - 2 puff INHALATION Q4-6H PRN #1 inhaler PRN Reason: Cough Azithromycin [Zithromax Z-pack] 0 mg PO DIRECTED #6 tab Is patient prescribed a controlled substance at d/c from ED?: No Referrals: Ramiro Chávez MD [Primary Care Provider] - 1-2 days
[2018-09-16 23:34] LABS: Basophils # (A) 0.1 k/uL (0-0.2); Basophils % (A) 1 %; Eosinophils # (A) 0.3 k/uL (0-0.7); Eosinophils % (A) 4 %; HCT 43.7 % (34.0-46.0); HGB 14.4 gm/dL (11.4-16.0); Lymphocytes # (A) 2.8 k/uL (1.0-4.8); Lymphocytes % (A) 35 %; MCV 88.1 fL (80.0-100.0); Mean Platelet Volume 7.5; Monocytes # (A) 0.4 k/uL (0-1.0); Monocytes % (A) 5 %; Neutrophils # (A) 4.3 k/uL (1.3-7.7); Neutrophils % (A) 54 %; Platelet Count 234 k/uL (150-450); RBC 4.96 m/uL (3.80-5.40)
[2018-09-16 23:49] LABS: D-Dimer 0.55 mg/L FEU (<0.60); INR 0.9 (<1.2); Partial Thromboplastin Time 25.4 sec (22.0-30.0); Prothrombin Time 10.1 sec (9.0-12.0)
[2018-09-16 23:56] LABS: Albumin 4.4 g/dL (3.5-5.0); Calcium 9.7 mg/dL (8.4-10.2); Magnesium 1.9 mg/dL (1.6-2.3); Potassium 4.4 mmol/L (3.5-5.1); Total Bilirubin 0.3 mg/dL (0.2-1.3); Total Protein 7.6 g/dL (6.3-8.2)
--- NOTE | 2018-09-17 00:03 | XR ---
EXAM: XR Chest, 2 Views CLINICAL HISTORY: Chest pain TECHNIQUE: Frontal and lateral views of the chest. COMPARISON: Chest x-ray dated 01/30/2018 FINDINGS: Lungs: Diffuse airspace opacities which may represent pulmonary edema versus an infectious process. Pleural space: Unremarkable. No pneumothorax. Heart: Unremarkable. No cardiomegaly. Mediastinum: Unremarkable. Bones/joints: Unremarkable. IMPRESSION: Diffuse airspace opacities which may represent pulmonary edema versus an infectious process.
[2018-09-17] MEDS ORDERED: AZITHROMYCIN 500 MG TAB PO STA (00:46)
--- NOTE | 2018-09-17 01:39 | CT ---
EXAM: CT Angiography Chest With Intravenous Contrast CLINICAL HISTORY: Pain TECHNIQUE: Axial computed tomographic angiography images of the chest with intravenous contrast using pulmonary embolism protocol. CTDI is 0.085, 0. 085, 1.5, 1.5, 4.5, 10.9 mGy and DLP is 479.9 mGy-cm. This CT exam was performed using one or more of the following dose reduction techniques: automated exposure control, adjustment of the mA and/or kV according to patient size, and/or use of iterative reconstruction technique. MIP reconstructed images were created and reviewed. COMPARISON: No relevant prior studies available. FINDINGS: Pulmonary arteries: No pulmonary embolus. Aorta: No acute findings. No thoracic aortic aneurysm. Lungs: Mosaic attenuation of the lungs with patchy ground glass opacities. Findings likely represent an acute inflammatory or infectious process with probable air trapping from small airways disease. Pleural space: Unremarkable. No significant effusion. No pneumothorax. Heart: Coronary artery calcifications. No significant pericardial effusion. No evidence of RV dysfunction. Thyroid: Large thyroid goiter with calcification. Bones/joints: No acute fracture. No dislocation. Soft tissues: Unremarkable. Lymph nodes: Subcentimeter mediastinal and hilar lymph nodes, likely reactive. Liver: Hepatic steatosis. Gallbladder and bile ducts: Gallstones. No CT evidence of acute cholecystitis. Kidneys and ureters: Left kidney is atrophic. Right kidney demonstrates multifocal areas of scarring. IMPRESSION: 1. No pulmonary embolus. 2. Mosaic attenuation of the lungs with patchy ground glass opacities. Findings likely represent an acute inflammatory or infectious process with probable air trapping from small airways disease.
[2018-09-17] MEDS ORDERED: SODIUM CHLORIDE 0.9% 1,000 ML IV STA (01:44)
[2018-09-17 02:42] VITALS: BP 144/74; PULSE 80; RESP 20; TEMP 98.7
== END 2018-09-17 02:39 | disposition home or self-care (01) ==
LOC: EC 22:21
DX: J18.9 Pneumonia, unspecified organism (principal); R79.1 Abnormal coagulation profile; E11.9 Type 2 diabetes mellitus without complications; G25.81 Restless legs syndrome; F32.9 Major depressive disorder, single episode, unspecified; F41.9 Anxiety disorder, unspecified; F17.200 Nicotine dependence, unspecified, uncomplicated; Z88.2 Allergy status to sulfonamides; Z79.84 Long term (current) use of oral hypoglycemic drugs; Z79.899 Other long term (current) drug therapy; Z96.641 Presence of right artificial hip joint; Z80.1 Family history of malignant neoplasm of trachea, bronchus and lung; Z82.49 Family history of ischemic heart disease and other diseases of the circulatory system
CPT/HCPCS: 36415 ×2; 94640; 93005; 85379; 83880; 80053; 83735; 84484 ×2; 85025; 85610; 85730; 71046; 71275; 99285; 96360; Q9967

== ENCOUNTER 2019-05-12 23:00 | Emergency (ER) | payer BC ==
[2019-05-12] MEDS ORDERED: IPRATROPIUM-ALBUTEROL 3 ML NEB INHALATION STA (23:41)
--- NOTE | 2019-05-13 00:03 | XR ---
EXAMINATION TYPE: XR chest 2V DATE OF EXAM: 05/12/2019 COMPARISON: 09/16/2018 HISTORY: Cough and fever TECHNIQUE: FINDINGS: There is patchy linear density in both mid and lower lung valdez. There is no heart failure . There is no pulmonary consolidation. Heart size is normal. There is no pleural effusion. IMPRESSION: Bilateral mild patchy linear infiltrate and atelectasis is new compared to old exam. Insp iration decreased compared to old exam. Normal heart.
--- NOTE | 2019-05-13 00:26 | ED ---
URI HPI - General Chief Complaint: Upper Respiratory Infection Stated Complaint: LIZ Time Seen by Provider: 05/12/19 23:28 Source: patient Mode of arrival: ambulatory Limitations: no limitations - History of Present Illness Initial Comments: Patient is a 48-year-old female presenting to emergency Department with complaints of cough, shortness of breath for the last 2-3 days. Patient states she's had a mild cough for approximately 4 days. Patient states last 2 days her symptoms have worsened. Patient states herself Mother also has similar symptoms . She denies history of asthma or COPD. She does admit to being every day smoker. She denies having fevers however she states she's been having hot flashes and chills. She admits to mild nausea, no vomiting. She also admits to some mild right lower back pain. She denies any injuries or falls. She denies any previous history of back pains. She has no other complaints at this time. Arrival to the ER, temperature is 99.7, 94% on room air, rest of vitals are normal. - Related Data Home Medications Medication Instructions Recorded Confirmed Atorvastatin [Lipitor] 20 mg PO HS 09/16/18 09/16/18 Citalopram Hydrobromide [CeleXA] 20 mg PO DAILY 09/16/18 09/16/18 Folic Acid 1 mg PO DAILY 09/16/18 09/16/18 Losartan [Cozaar] 50 mg PO HS 09/16/18 09/16/18 Repaglinide [Prandin] 0.5 mg PO AC-TID 09/16/18 09/16/18 buPROPion HCL [Wellbutrin XL] 300 mg PO DAILY 09/16/18 09/16/18 buPROPion XL [Wellbutrin Xl] 150 mg PO DAILY 09/16/18 09/16/18 metFORMIN HCL [Glucophage] 1,000 mg PO BID 09/16/18 09/16/18 rOPINIRole HCL [Requip] 1 mg PO HS 09/16/18 09/16/18 Previous Rx's Medication Instructions Recorded Azithromycin [Zithromax Z-pack] 0 mg PO DIRECTED #6 tab 09/17/18 predniSONE 50 mg PO DAILY #5 tab 09/17/18 Albuterol Inhaler [Ventolin Hfa 1 - 2 puff INHALATION Q4-6H PRN #1 05/13/19 Inhaler] inhaler Azithromycin [Zithromax Z-pack] 0 mg PO DIRECTED #1 pack 05/13/19 Allergies Allergy/AdvReac Type Severity Reaction Status Date / Time Sulfa (Sulfonamide AdvReac Nausea & Verified 09/16/18 23:01 Antibiotics) Vomiting sulfamethoxazole AdvReac Nausea & Verified 09/16/18 23:01 [From Bactrim] Vomiting trimethoprim [From Bactrim] AdvReac Nausea & Verified 09/16/18 23:01 Vomiting Review of Systems ROS Statement: Those systems with pertinent positive or pertinent negative responses have been documented in the HPI. ROS Other: All systems not noted in ROS Statement are negative. Past Medical History Past Medical History: Diabetes Mellitus, Pneumonia Additional Past Medical History / Comment(s): HEAD INJURY/concussion d/t fall at ge 6, kidney stones, past uti's, RLS."hypoparathyroidism",ddd, major depression History of Any Multi-Drug Resistant Organisms: None Reported Past Surgical History: Section, Joint Replacement, Tubal Ligation Additional Past Surgical History / Comment(s): rush. nephrostolithotomy, NEPHROSTOLITHOTOMY 11/15/15. nephrostomy tubes and removal, rt hip replacement, hx parathyroid bx carpel tunnel Past Anesthesia/Blood Transfusion Reactions: No Reported Reaction Additional Past Anesthesia/Blood Transfusion Reaction / Comment(s): clausterphob ia Past Psychological History: Anxiety, Depression Smoking Status: Current every day smoker Past Alcohol Use History: None Reported Past Drug Use History: None Reported - Past Family History Father Family Medical History: Coronary Artery Disease (CAD), Diabetes Mellitus Sister(s) Family Medical History: Diabetes Mellitus Mother Family Medical History: Cancer, Diabetes Mellitus Additional Family Medical History / Comment(s): LUNG General Exam - General Exam Comments Initial Comments: GENERAL: Well-appearing, well-nourished and in no acute distress. HEAD: Atraumatic, normocephalic. EYES: Pupils equal round and reactive to light, extraocular movements intact, sclera anicteric, conjunctiva are normal. ENT: TMs normal, nares patent, oropharynx clear without exudates. Moist mucous membranes. NECK: Normal range of motion, supple without lymphadenopathy or JVD. LUNGS: Bilateral scattered wheezes, no rales or rhonchi. HEART: Regular rate and rhythm without murmurs, rubs or gallops. ABDOMEN: Soft, nontender, normoactive bowel sounds. No guarding, no rebound. No masses appreciated. : Deferred EXTREMITIES: Normal range of motion, no pitting or edema. No clubbing or cyanosis. PSYCH: Normal mood, normal affect. SKIN: Warm, Dry, normal turgor, no rashes or lesions noted. Limitations: no limitations Course Vital Signs 05/12/19 05/13/19 05/13/19 23:16 00:09 00:22 Temperature 99.7 F H Pulse Rate 99 96 100 Respiratory 20 Rate Blood Pressure 117/73 O2 Sat by Pulse 94 L Oximetry 05/13/19 05/13/19 00:26 00:39 Temperature 98.0 F Pulse Rate 103 H Respiratory 24 20 Rate Blood Pressure 125/87 O2 Sat by Pulse 99 Oximetry Medical Decision Making - Medical Decision Making Patient is a 48-year-old female presenting with cough and shortness of breath for the last 2 days. Patient had low-grade temperature and low saturation at 94% upon arrival. Chest x-ray shows bilateral mild patchy linear infiltrate. Influenza is negative. Patient was given a breathing treatment with improvement in her symptoms. Patient will be started on azithromycin for pneumonia and will be given inhaler as well. Her vitals have improved. She is stable for discharge at this time. She is in agreement with this plan of care. Return par ameters were discussed with the patient she verbalized understanding. - Lab Data Lab Results 05/12/19 Range/Units 23:19 Influenza Type A RNA Not Detected (Not Detectd) Influenza Type B (PCR) Not Detected (Not Detectd) Disposition Clinical Impression: Pneumonia Disposition: HOME SELF-CARE Condition: Stable Instructions (If sedation given, give patient instructions): Pneumonia (ED) Additional Instructions: Please return to the Emergency Department if symptoms worsen or any other concerns. Take antibiotic as prescribed. Use inhaler as needed for shortness of breath. Follow up with PCP. Prescriptions: Albuterol Inhaler [Ventolin Hfa Inhaler] 1 - 2 puff INHALATION Q4-6H PRN #1 inhaler PRN Reason: Cough Azithromycin [Zithromax Z-pack] 0 mg PO DIRECTED #1 pack Is patient prescribed a controlled substance at d/c from ED?: No Referrals: Ramiro Chávez MD [Primary Care Provider] - 1-2 days
[2019-05-13 00:40] VITALS: BP 125/87; PULSE 103; RESP 20; TEMP 98
== END 2019-05-13 00:39 | disposition home or self-care (01) ==
LOC: EC 23:00
DX: J18.9 Pneumonia, unspecified organism (principal); R91.8 Other nonspecific abnormal finding of lung field; E11.9 Type 2 diabetes mellitus without complications; F41.9 Anxiety disorder, unspecified; F32.9 Major depressive disorder, single episode, unspecified; F17.200 Nicotine dependence, unspecified, uncomplicated; Z79.84 Long term (current) use of oral hypoglycemic drugs; Z79.899 Other long term (current) drug therapy; Z88.2 Allergy status to sulfonamides; Z88.1 Allergy status to other antibiotic agents; Z96.641 Presence of right artificial hip joint; Z98.890 Other specified postprocedural states
CPT/HCPCS: 71046; 87502; 94640; 99285

== ENCOUNTER 2019-05-16 20:48 | Emergency (ER) | payer BC ==
[2019-05-16] MEDS ORDERED: ACETAMINOPHEN TAB 500 MG TAB PO STA (21:21)
[2019-05-16] MEDS ORDERED: IPRATROPIUM-ALBUTEROL 3 ML NEB INHALATION STA (21:23)
--- NOTE | 2019-05-16 21:23 | ED ---
SOB HPI - General Chief Complaint: Shortness of Breath Stated Complaint: LIZ Source: patient Mode of arrival: ambulatory Limitations: no limitations - History of Present Illness Initial Comments: Katelyn is a 48-year-old female with history of asthma his current every day cigarette smoker. Patient and her partner were seen and evaluated earlier this week, partner was diagnosed with influenza A, at that time patient was noted to be influenza negative however was found to have a signs of pneumonia on chest x- ray. Patient was discharged home on oral azithromycin which she's been taking. Patient reports that despite taking this and taking one pill of Motrin daily she continues to have fever and body aches. Decreased oral intake and just not feeling well. Due to persistence of symptoms patient return to the ER today for reevaluation. Patient reports wheezing with minimal improvement with her MDI. - Related Data Home Medications Medication Instructions Recorded Confirmed Atorvastatin [Lipitor] 20 mg PO HS 09/16/18 09/16/18 Citalopram Hydrobromide [CeleXA] 20 mg PO DAILY 09/16/18 09/16/18 Folic Acid 1 mg PO DAILY 09/16/18 09/16/18 Losartan [Cozaar] 50 mg PO HS 09/16/18 09/16/18 Repaglinide [Prandin] 0.5 mg PO AC-TID 09/16/18 09/16/18 buPROPion HCL [Wellbutrin XL] 300 mg PO DAILY 09/16/18 09/16/18 buPROPion XL [Wellbutrin Xl] 150 mg PO DAILY 09/16/18 09/16/18 metFORMIN HCL [Glucophage] 1,000 mg PO BID 09/16/18 09/16/18 rOPINIRole HCL [Requip] 1 mg PO HS 09/16/18 09/16/18 Previous Rx's Medication Instructions Recorded Azithromycin [Zithromax Z-pack] 0 mg PO DIRECTED #6 tab 09/17/18 predniSONE 50 mg PO DAILY #5 tab 09/17/18 Albuterol Inhaler [Ventolin Hfa 1 - 2 puff INHALATION Q4-6H PRN #1 05/13/19 Inhaler] inhaler Azithromycin [Zithromax Z-pack] 0 mg PO DIRECTED #1 pack 05/13/19 Allergies Allergy/AdvReac Type Severity Reaction Status Date / Time Sulfa (Sulfonamide AdvReac Nausea & Verified 05/16/19 21:07 Antibiotics) Vomiting sulfamethoxazole AdvReac Nausea & Verified 05/16/19 21:07 [From Bactrim] Vomiting trimethoprim [From Bactrim] AdvReac Nausea & Verified 05/16/19 21:07 Vomiting Review of Systems ROS Statement: Those systems with pertinent positive or pertinent negative responses have been documented in the HPI. ROS Other: All systems not noted in ROS Statement are negative. Past Medical History Past Medical History: Diabetes Mellitus, Pneumonia Additional Past Medical History / Comment(s): HEAD INJURY/concussion d/t fall at ge 6, kidney stones, past uti's, RLS."hypoparathyroidism",ddd, major depression History of Any Multi-Drug Resistant Organisms: None Reported Past Surgical History: Section, Joint Replacement, Tubal Ligation Additional Past Surgical History / Comment(s): rush. nephrostolithotomy, NEPHROSTOLITHOTOMY 11/15/15. nephrostomy tubes and removal, rt hip replacement, hx parathyroid bx carpel tunnel Past Anesthesia/Blood Transfusion Reactions: No Reported Reaction Additional Past Anesthesia/Blood Transfusion Reaction / Comment(s): clausterphobia Past Psychological History: Anxiety, Depression Smoking Status: Current every day smoker Past Alcohol Use History: None Reported Past Drug Use History: None Reported - Past Family History Father Family Medical History: Coronary Artery Disease (CAD), Diabetes Mellitus Sister(s) Family Medical History: Diabetes Mellitus Mother Family Medical History: Cancer, Diabetes Mellitus Additional Family Medical History / Comment(s): LUNG General Exam - General Exam Comments Initial Comments: Physical Exam GENERAL: Patient is well-developed and well-nourished. Patient is nontoxic and well- hydrated and is in no distress. HENT: Normocephalic, Atraumatic. EYES: PERRL, EOMI PULMONARY: Wheezing in all lung valdez CARDIOVASCULAR: There is a regular rate and rhythm without any murmurs gallops or rubs. ABDOMEN: Soft and nontender with normal bowel sounds. SKIN: Skin is clear with no lesions or rashes and otherwise unremarkable. : Deferred NEUROLOGIC: Patient is alert and oriented x3. Moving all extremities spontaneously MUSCULOSKELETAL: Normal extremities with adequate strength and full range of motion. No lower extremity swelling or edema. No calf tenderness. PSYCHIATRIC: Normal psychiatric evaluation. Limitations: no limitations Course Vital Signs 05/16/19 05/16/19 05/16/19 21:05 21:07 21:57 Temperature 101.0 F H Pulse Rate 96 91 86 Respiratory 24 24 22 Rate Blood Pressure 109/70 149/77 O2 Sat by Pulse 92 L 98 Oximetry 05/16/19 05/16/19 05/17/19 22:07 23:10 00:47 Temperature 99 F 98.8 F Pulse Rate 97 91 90 Respiratory 20 20 18 Rate Blood Pressure 111/66 119/75 O2 Sat by Pulse 98 98 Oximetry Medical Decision Making - Medical Decision Making The patient was seen and evaluated history is obtained from patient and review of medical record Patient currently diagnosed with pneumonia on azithromycin presenting with persi stent fever cough, patient history and physical exam also concerning for likely influenza Septic workup as well as influenza swabs were obtained Influence a positive however patient's symptoms present for greater than 3-4 days therefore she is not a candidate for Tamiflu CBC CMP were reviewed, she is hyponatremic with acute kidney injury, she is receiving IV fluid bolus X-ray again confirmed likely pneumonia however no significant focal consolidation this is likely a viral pneumonia but given that it was present prior to influenza being positive we will give a dose of IV antibiotics here. I offered the patient admission for treatment of pneumonia and influenza failed outpatient therapy however she would much prefer discharge home. Patient's wheezing resolved after single breathing treatment. At this time patient hemodynamically stable stable for discharge home we'll contact her primary care tomorrow for follow-up and to discuss possible nebulizer at home all questions pertaining care were answered return parameters discussed patient discharged home in stable condition. - Lab Data Result diagrams: 05/16/19 21:32 05/16/19 21:32 Lab Results 05/16/19 05/16/19 05/16/19 Range/Units 21:25 21:32 21:32 WBC 6.0 (3.8-10.6) k/uL RBC 4.56 (3.80-5.40) m/uL Hgb 13.8 (11.4-16.0) gm/dL Hct 40.7 (34.0-46.0) % MCV 89.1 (80.0-100.0) fL MCH 30.2 (25.0-35.0) pg MCHC 33.9 (31.0-37.0) g/dL RDW 13.0 (11.5-15.5) % Plt Count 167 (150-450) k/uL Neutrophils % 70 % Lymphocytes % 22 % Monocytes % 6 % Eosinophils % 1 % Basophils % 1 % Neutrophils # 4.2 (1.3-7.7) k/uL Lymphocytes # 1.3 (1.0-4.8) k/uL Monocytes # 0.4 (0-1.0) k/uL Eosinophils # 0.0 (0-0.7) k/uL Basophils # 0.1 (0-0.2) k/uL Sodium 134 L (137-145) mmol/L Potassium 4.0 (3.5-5.1) mmol/L Chloride 101 (98-107) mmol/L Carbon Dioxide 25 (22-30) mmol/L Anion Gap 8 mmol/L BUN 16 (7-17) mg/dL Creatinine 1.47 H (0.52-1.04) mg/dL Est GFR (CKD-EPI)AfAm 48 (>60 ml/min/1.73 sqM) Est GFR (CKD-EPI)NonAf 42 (>60 ml/min/1.73 sqM) Glucose 201 H (74-99) mg/dL Plasma Lactic Acid Colton (0.7-2.0) mmol/L Calcium 8.2 L (8.4-10.2) mg/dL Total Bilirubin 0.9 (0.2-1.3) mg/dL AST 51 H (14-36) U/L ALT 27 (4-34) U/L Alkaline Phosphatase 94 (38-126) U/L Total Protein 6.9 (6.3-8.2) g/dL Albumin 3.7 (3.5-5.0) g/dL Influenza Type A RNA Detected H (Not Detectd) Influenza Type B (PCR) Not Detected (Not Detectd) 05/16/19 Range/Units 21:32 WBC (3.8-10.6) k/uL RBC (3.80-5.40) m/uL Hgb (11.4-16.0) gm/dL Hct (34.0-46.0) % MCV (80.0-100.0) fL MCH (25.0-35.0) pg MCHC (31.0-37.0) g/dL RDW (11.5-15.5) % Plt Count (150-450) k/uL Neutrophils % % Lymphocytes % % Monocytes % % Eosinophils % % Basophils % % Neutrophils # (1.3-7.7) k/uL Lymphocytes # (1.0-4.8) k/uL Monocytes # (0-1.0) k/uL Eosinophils # (0-0.7) k/uL Basophils # (0-0.2) k/uL Sodium (137-145) mmol/L Potassium (3.5-5.1) mmol/L Chloride (98-107) mmol/L Carbon Dioxide (22-30) mmol/L Anion Gap mmol/L BUN (7-17) mg/dL Creatinine (0.52-1.04) mg/dL Est GFR (CKD-EPI)AfAm (>60 ml/min/1.73 sqM) Est GFR (CKD-EPI)NonAf (>60 ml/min/1.73 sqM) Glucose (74-99) mg/dL Plasma Lactic Acid Colton 1.3 (0.7-2.0) mmol/L Calcium (8.4-10.2) mg/dL Total Bilirubin (0.2-1.3) mg/dL AST (14-36) U/L ALT (4-34) U/L Alkaline Phosphatase (38-126) U/L Total Protein (6.3-8.2) g/dL Albumin (3.5-5.0) g/dL Influenza Type A RNA (Not Detectd) Influenza Type B (PCR) (Not Detectd) - EKG Data -: EKG Interpreted by Me EKG Comments: EKG was obtained due to complaint of shortness of breath, EKG was obtained at 2156, rate is 90 rhythm is sinus at normal axis, there are normal intervals, HI 154, QRS 78, QTC is 420, there are no acute ST elevations or depressions there is no evidence of acute ischemia, infarction or right heart strain. No acute findings on this EKG. Disposition Clinical Impression: Influenza Disposition: HOME SELF-CARE Condition: Stable Instructions (If sedation given, give patient instructions): Influenza (DC) Additional Instructions: Call Dr. Chávez's office tomorrow for follow-up visit and to discuss getting a nebulizer for home. Is patient prescribed a controlled substance at d/c from ED?: No Referrals: Ramiro Chávez MD [Primary Care Provider] - 1-2 days
[2019-05-16] MEDS: SODIUM CHLORIDE 0.9% 500 ML 500 ML IV SCH ×3 (21:42→23:55)
[2019-05-16 21:50] LABS: Basophils # (A) 0.1 k/uL (0-0.2); Basophils % (A) 1 %; Eosinophils % (A) 1 %; HCT 40.7 % (34.0-46.0); HGB 13.8 gm/dL (11.4-16.0); Lymphocytes # (A) 1.3 k/uL (1.0-4.8); Lymphocytes % (A) 22 %; MCH 30.2 pg (25.0-35.0); MCHC 33.9 g/dL (31.0-37.0); MCV 89.1 fL (80.0-100.0); Mean Platelet Volume 8.3; Monocytes # (A) 0.4 k/uL (0-1.0); Monocytes % (A) 6 %; Neutrophils # (A) 4.2 k/uL (1.3-7.7); Neutrophils % (A) 70 %; Platelet Count 167 k/uL (150-450); RBC 4.56 m/uL (3.80-5.40)
[2019-05-16 22:04] LABS: Albumin 3.7 g/dL (3.5-5.0); Calcium 8.2 mg/dL (8.4-10.2); Total Bilirubin 0.9 mg/dL (0.2-1.3); Total Protein 6.9 g/dL (6.3-8.2)
--- NOTE | 2019-05-16 22:47 | XR ---
EXAMINATION TYPE: XR chest 2V DATE OF EXAM: 05/16/2019 COMPARISON: 05/12/2019 HISTORY: Cough and fever TECHNIQUE: FINDINGS: There is moderate coarse interstitial infiltrates in the lungs. There are no hilar masses. Heart size is within normal limits. Bony thorax is intact. There is no pleural effusion. IMPRESSION: Coarse pulmonary interstitial infiltrates appears slightly increased compared to recent e xam. No definite heart failure.
[2019-05-16] MEDS ORDERED: AZITHROMYCIN 500 MG in SODIUM CHLORIDE 0.9% 250 ML IVPB STA (22:55)
[2019-05-17 00:47] VITALS: BP 119/75; PULSE 90; RESP 18; TEMP 98.8
== END 2019-05-17 00:48 | disposition home or self-care (01) ==
LOC: EC 20:48
DX: J11.1 Influenza due to unidentified influenza virus with other respiratory manifestations (principal); E87.1 Hypo-osmolality and hyponatremia; N17.9 Acute kidney failure, unspecified; E11.9 Type 2 diabetes mellitus without complications; G25.81 Restless legs syndrome; F32.9 Major depressive disorder, single episode, unspecified; F41.9 Anxiety disorder, unspecified; F17.210 Nicotine dependence, cigarettes, uncomplicated; Z87.820 Personal history of traumatic brain injury; Z87.440 Personal history of urinary (tract) infections; Z87.442 Personal history of urinary calculi; Z87.01 Personal history of pneumonia (recurrent); Z93.6 Other artificial openings of urinary tract status; Z96.641 Presence of right artificial hip joint; Z98.51 Tubal ligation status; Z98.890 Other specified postprocedural states; Z79.84 Long term (current) use of oral hypoglycemic drugs; Z79.899 Other long term (current) drug therapy; Z88.1 Allergy status to other antibiotic agents; Z88.2 Allergy status to sulfonamides
CPT/HCPCS: 99285; 96365; 96367; 96361; 36415; 94640; 93005; 80053; 83605; 85025; 87040; 87502; 71046; J0456; J0696

== ENCOUNTER → 2019-12-28 | Outpatient (CLI) | payer BC ==
--- NOTE | 2019-12-28 08:12 | US ---
EXAMINATION TYPE: US thyroid st tissue head/neck DATE OF EXAM: 12/28/2019 COMPARISON: CT 09/17/18 CLINICAL HISTORY: E04.9 Goiter. GLAND SIZE: Right Lobe: 6.4 x 2.5 x 2.6 cm Overall Parenchyma: heterogenous Left Lobe: 6.9 x 3.3 x 3.2 cm Overall Parenchyma: heterogeneous Isthmus Thickness: 2.8 cm NODULES RIGHT: # of nodules measured on right: 5 possible nodules measured with largest described below 1. 2.0 X 1.7 x 2.0 cm hypoechoic mixed nodule at the upper pole with well-defined margins; . This nodule is wider than tall and shows intranodular vascularity. LEFT: # of nodules measured on left: 4 possible nodules measured with largest described below 1. 3.0 X 1.8 x 3.0 cm hypoechoic mixed nodule at the upper pole with well-defined margins and calci fications. This nodule is wider than tall and shows intranodular vascularity. ISTHMUS: # of nodules measured in the isthmus: 1 1. 4.2 X 3.0 x 3.7 cm isoechoic solid nodule at the mid pole with well-defined margins; . This nod ule is wider than tall and shows intranodular vascularity. Bilateral neck scanned, no evidence of lymphadenopathy. Heterogenous, multi-nodular goiter IMPRESSION: Heterogeneously enlarged thyroid correlate for thyroiditis. Multinodular thyroid changes are seen as described above. No prior exam available.
== END | disposition home or self-care (01) ==
LOC: RADUSWWP 07:01
PROVIDERS: ATTEND Family Medicine
DX: E04.2 Nontoxic multinodular goiter (principal)
CPT/HCPCS: 76536

== ENCOUNTER → 2020-01-11 | Outpatient (CLI) | payer BC ==
[2020-01-12 04:49] LABS: Hemoglobin A1C 6.5 % (4.0-6.0)
[2020-01-12 05:54] LABS: Thyroid Peroxidase Antibodies <28.0 U/mL (0.0-60.0)
== END | disposition home or self-care (01) ==
LOC: LABWHC1 14:29
PROVIDERS: ATTEND Family Medicine
DX: I10 Essential (primary) hypertension (principal); Z79.899 Other long term (current) drug therapy
CPT/HCPCS: 36415; 83036; 84439; 84443; 84481; 86376; 86800

== ENCOUNTER 2020-01-28 09:00 | Day surgery (SDC) | payer BC ==
[2020-01-28] MEDS ORDERED: ALPRAZolam 0.5 MG TAB PO STA (09:30)
[2020-01-28 09:33] VITALS: RESP 18; TEMP 97.8
[2020-01-28 11:07] VITALS: BP 121/74; PULSE 79
--- NOTE | 2020-01-28 11:41 | US ---
EXAMINATION TYPE: US FNA thyroid each add lesion, US FNA thyroid each add lesion, US FNA thyroid firs t lesion DATE OF EXAM: 01/28/2020 COMPARISON: Ultrasound thyroid 12/28/2019 HISTORY: Thyroid nodules. Maximal barrier technique was utilized. After informed consent, skin overlying the left lobe calcifi ed lesion was localized with ultrasound and the overlying skin prepped and draped. Ultrasound was uti lized using sterile technique. Lidocaine was used for local anesthesia. Five passes with a 25-gauge needle were made into the nodule and aspirated specimen was submitted to cytology. Using similar tech nique the right lobe dominant nodule of the lower pole was sampled with 5 passes with 25-gauge needle under ultrasound guidance. Finally, the dominant isthmus nodule was sampled using ultrasound guidanc e with 5 passes and a 25-gauge needle. Following the procedure hemostasis achieved. No immediate co mplication. The patient discharged in stable condition. IMPRESSION: STATUS POST ULTRASOUND GUIDED FINE NEEDLE ASPIRATION OF 3 DISCRETE THYROID NODULES, PATHO LOGY IS PENDING. THIS PROCEDURE WAS PERFORMED BY THE UNDERSIGNED.
== END 2020-01-28 11:05 | disposition home or self-care (01) ==
LOC: RADPROMAIN 09:00
PROVIDERS: ATTEND Family Medicine
DX: E04.1 Nontoxic single thyroid nodule (principal)
CPT/HCPCS: 10005; 10006; 88173; 88305; 88313

== ENCOUNTER → 2020-03-22 | Outpatient (CLI) | payer BC ==
[2020-03-22 18:58] LABS: African American GFR (CKD) 55.8 (60.0-200.0); Albumin 4.4 g/dL (3.80-4.90); Albumin/Globulin Ratio 1.63 (1.60-3.17); Anion Gap 6.6 mmol/L (4.00-12.00); BUN/Creat Ratio 15.38 Ratio (12.00-20.00); Calcium 9.6 mg/dL (8.7-10.3); Carbon Dioxide 26.4 mmol/L (21.6-31.8); Globulin 2.7 g/dL (1.6-3.3); Non-African American GFR(CKD) 48.1 (60.0-200.0); Phosphorus 4.7 mg/dL (2.4-5.1); Potassium 4.2 mmol/L (3.5-5.5); Total Bilirubin 0.3 mg/dL (0.3-1.2); Total Protein 7.1 g/dL (6.2-8.2)
== END | disposition home or self-care (01) ==
LOC: LABWHC1 11:36
PROVIDERS: ATTEND Internal Medicine
DX: E55.9 Vitamin D deficiency, unspecified (principal); E20.9 Hypoparathyroidism, unspecified
CPT/HCPCS: 36415; 80053; 82306; 82652; 83970; 84100

== ENCOUNTER 2020-04-08 05:53 | Emergency (ER) | payer BC ==
[2020-04-08 05:59] VITALS: RESP 18; TEMP 98.8
[2020-04-08] MEDS ORDERED: SODIUM CHLORIDE 0.9% 1,000 ML IV STA (06:15)
[2020-04-08] MEDS ORDERED: KETOROLAC 15 MG/ML 1 ML VIAL IVP STA (06:15)
[2020-04-08] MEDS ORDERED: PANTOPRAZOLE 40 MG/10 ML VIAL IVP STA (06:15)
[2020-04-08] MEDS ORDERED: ONDANSETRON 4 MG/2 ML VIAL IVP STA (06:15)
--- NOTE | 2020-04-08 06:32 | ED ---
Abdominal Pain HPI - General Chief Complaint: Abdominal Pain Stated Complaint: Abd Pain Time Seen by Provider: 04/08/20 06:01 Source: patient Mode of arrival: ambulatory - History of Present Illness Initial Comments: Patient is a 49-year-old female presenting to the emergency Department with complaints of epigastric and left-sided abdominal pain 2 days. Patient states the pain has been consistent does increase at times. She states her positions make it worse. She does admit to nausea, no vomiting or diarrhea. She denies any fever or chills. She has history of , no other abdominal surgeries. She's been having regular bowel movements. He has been able to eat and drink as normal. She denies any dysuria. She does admit to history of kidney stones however this feels different to her. She denies any chest pain, shortness of breath, cough. She states she has tried Gas-X as well as Tylenol Motrin without relief. She currently rates her abdominal pain at 8/10. She has no further complaints at this time. On arrival to the ER, her vital signs are stable. - Related Data Home Medications Medication Instructions Recorded Confirmed Atorvastatin [Lipitor] 20 mg PO HS 09/16/18 01/28/20 Citalopram Hydrobromide [CeleXA] 20 mg PO DAILY 09/16/18 01/28/20 Losartan [Cozaar] 50 mg PO HS 09/16/18 01/28/20 rOPINIRole HCL [Requip] 1 mg PO HS 09/16/18 01/28/20 Ascorbic Acid [Vitamin C] 500 mg PO DAILY 01/20/20 01/28/20 Multivitamins, Thera [Multivitamin 1 tab PO DAILY 01/20/20 01/28/20 (formulary)] Omeprazole 20 mg PO DAILY 01/20/20 01/28/20 Semaglutide [Rybelsus] 7 mg PO DAILY 01/20/20 01/28/20 Previous Rx's Medication Instructions Recorded Azithromycin [Zithromax Z-pack (6 0 mg PO DIRECTED #6 tab 09/17/18 tabs)] Albuterol Inhaler (Mhu) [Ventolin 1 - 2 puff INHALATION Q4-6H PRN #1 05/13/19 Hfa Inhaler (Mhu)] inhaler Azithromycin [Zithromax Z-pack (6 0 mg PO DIRECTED #1 pack 05/13/19 tabs)] Ketorolac [Toradol] 10 mg PO Q8HR #8 tab 04/08/20 Allergies Allergy/AdvReac Type Severity Reaction Status Date / Time Sulfa (Sulfonamide AdvReac Nausea & Verified 04/08/20 05:59 Antibiotics) Vomiting sulfamethoxazole AdvReac Nausea & Verified 04/08/20 05:59 [From Bactrim] Vomiting trimethoprim [From Bactrim] AdvReac Nausea & Verified 04/08/20 05:59 Vomiting Review of Systems ROS Statement: Those systems with pertinent positive or pertinent negative responses have been documented in the HPI. ROS Other: All systems not noted in ROS Statement are negative. Past Medical History Past Medical History: Diabetes Mellitus, Hyperlipidemia, Pneumonia, Thyroid Disorder Additional Past Medical History / Comment(s): HEAD INJURY/concussion d/t fall at ge 6, kidney stones, past uti's, RLS."hypoparathyroidism",ddd, major depression History of Any Multi-Drug Resistant Organisms: None Reported Past Surgical History: Section, Joint Replacement, Tubal Ligation Additional Past Surgical History / Comment(s): rush. nephrostolithotomy, NEPHROSTOLITHOTOMY 11/15/15. nephrostomy tubes and removal, rt hip replacement, hx parathyroid bx, carpel tunnel bilateral Past Anesthesia/Blood Transfusion Reactions: No Reported Reaction Additional Past Anesthesia/Blood Transfusion Reaction / Comment(s): clausterphobia Past Psychological History: Anxiety, Depression Smoking Status: Current some day smoker Past Alcohol Use History: None Reported Past Drug Use History: None Reported - Past Family History Father Family Medical History: Coronary Artery Disease (CAD), Diabetes Mellitus Sister(s) Family Medical History: Diabetes Mellitus Mother Family Medical History: Cancer, Diabetes Mellitus Additional Family Medical History / Comment(s): LUNG General Exam - General Exam Comments Initial Comments: GENERAL: Patient is well-developed and well-nourished. Patient is nontoxic and in mild distress. HEAD: Atraumatic, normocephalic. EYES: Pupils equal round and reactive to light, extraocular movements intact, sclera anicteric, conjunctiva are normal. Eyelids were unremarkable. ENT: TMs normal, nares patent, oropharynx clear without exudates. Moist mucous membranes. NECK: Normal range of motion, supple without lymphadenopathy or JVD. LUNGS: Unlabored respirations. Breath sounds clear to auscultation bilaterally and equal. No wheezes rales or rhonchi. HEART: Regular rate and rhythm without murmurs, rubs or gallops. ABDOMEN: Tender to palpation in the epigastric and left upper quadrant, this does extend down into the left side of the abdomen. No flank pain. Soft, hypoactive bowel sounds. No guarding, no rebound. No masses appreciated. : Deferred MUSCULOSKELETAL: Normal extremities with adequate strength and normal range of motion, no pitting or edema. No clubbing or cyanosis. NEUROLOGICAL: Patient is alert and oriented x 3. Motor and sensory are also intact. Cranial nerves II through XII grossly intact. Symmetrical smile. Normal speech, normal gait. PSYCH: Normal mood, normal affect. SKIN: Warm, Dry, normal turgor, no rashes or lesions noted. Course Vital Signs 04/08/20 04/08/20 05:57 08:13 Temperature 98.8 F Pulse Rate 81 78 Respiratory 18 18 Rate Blood Pressure 158/74 124/76 O2 Sat by Pulse 98 97 Oximetry Medical Decision Making - Medical Decision Making Patient is a 49-year-old female here for epigastric pain and left upper quadrant pain 2 days. Positive nausea, no vomiting or diarrhea. No fevers. Her vital signs are stable upon arrival. Labs show a normal white count, creatinine stable at 1.25, glucose is elevated at 399. Bilirubin is normal, lipase slightly elevated at 394, this has been elevated in the past, no history of pa ncreatitis. Urine does not show any evidence of UTI at this time. CT of the abdomen shows chronic renal disease with numerous right-sided renal calculi, cholelithiasis, mild hepatic steatois. Patient was given fluids, Toradol, Zofran and Protonix. She is resting currently in the room. I discussed these findings with the patient. She did have gallstones present a few years ago on CT as well. We discussed that her pain is most likely biliary colic. I will give her referral to GI specialist is. Patient is in agreement with this plan of care. She stable for discharge. I will give her a few tablets of Toradol for additional symptoms. We did discuss diet control. Return parameters were discussed with the patient she verbalized understanding. Case discussed with Dr. Watt. - Lab Data Result diagrams: 04/08/20 06:25 04/08/20 06:25 Lab Results 04/08/20 04/08/20 04/08/20 Range/Units 06:25 06:25 06:25 WBC 9.2 (3.8-10.6) k/uL RBC 4.87 (3.80-5.40) m/uL Hgb 15.0 (11.4-16.0) gm/dL Hct 43.9 (34.0-46.0) % MCV 90.1 (80.0-100.0) fL MCH 30.7 (25.0-35.0) pg MCHC 34.1 (31.0-37.0) g/dL RDW 12.6 (11.5-15.5) % Plt Count 213 (150-450) k/uL MPV 8.1 Neutrophils % 73 % Lymphocytes % 19 % Monocytes % 4 % Eosinophils % 2 % Basophils % 1 % Neutrophils # 6.8 (1.3-7.7) k/uL Lymphocytes # 1.8 (1.0-4.8) k/uL Monocytes # 0.4 (0-1.0) k/uL Eosinophils # 0.2 (0-0.7) k/uL Basophils # 0.1 (0-0.2) k/uL PT 10.2 (9.0-12.0) sec INR 0.9 (<1.2) APTT 25.5 (22.0-30.0) sec Sodium (137-145) mmol/L Potassium (3.5-5.1) mmol/L Chloride (98-107) mmol/L Carbon Dioxide (22-30) mmol/L Anion Gap mmol/L BUN (7-17) mg/dL Creatinine (0.52-1.04) mg/dL Est GFR (CKD-EPI)AfAm (>60 ml/min/1.73 sqM) Est GFR (CKD-EPI)NonAf (>60 ml/min/1.73 sqM) Glucose (74-99) mg/dL Plasma Lactic Acid [place] (0.7-2.0) mmol/L Calcium (8.4-10.2) mg/dL Total Bilirubin (0.2-1.3) mg/dL AST (14-36) U/L ALT (4-34) U/L Alkaline Phosphatase (38-126) U/L Total Protein (6.3-8.2) g/dL Albumin (3.5-5.0) g/dL Amylase (30-110) U/L Lipase (23-300) U/L Urine Color Light Yellow Urine Appearance Clear (Clear) Urine pH 7.5 (5.0-8.0) Ur Specific [place] 1.009 (1.001-1.035) Urine Protein 2+ H (Negative) Urine Glucose (UA) 4+ H (Negative) Urine Ketones Negative (Negative) Urine Blood Small H (Negative) Urine Nitrite Negative (Negative) Urine Bilirubin Negative (Negative) Urine Urobilinogen <2.0 (<2.0) mg/dL Ur Leukocyte Esterase Small H (Negative) Urine RBC 19 H (0-5) /hpf Urine WBC 9 H (0-5) /hpf Ur Squamous Epith Cells <1 (0-4) /hpf Urine Bacteria Rare H (None) /hpf Urine Mucus Rare H (None) /hpf 04/08/20 04/08/20 Range/Units 06:25 06:25 WBC (3.8-10.6) k/uL RBC (3.80-5.40) m/uL Hgb (11.4-16.0) gm/dL Hct (34.0-46.0) % MCV (80.0-100.0) fL MCH (25.0-35.0) pg MCHC (31.0-37.0) g/dL RDW (11.5-15.5) % Plt Count (150-450) k/uL MPV Neutrophils % % Lymphocytes % % Monocytes % % Eosinophils % % Basophils % % Neutrophils # (1.3-7.7) k/uL Lymphocytes # (1.0-4.8) k/uL Monocytes # (0-1.0) k/uL Eosinophils # (0-0.7) k/uL Basophils # (0-0.2) k/uL PT (9.0-12.0) sec INR (<1.2) APTT (22.0-30.0) sec Sodium 138 (137-145) mmol/L Potassium 4.3 (3.5-5.1) mmol/L Chloride 102 (98-107) mmol/L Carbon Dioxide 28 (22-30) mmol/L Anion Gap 8 mmol/L BUN 19 H (7-17) mg/dL Creatinine 1.25 H (0.52-1.04) mg/dL Est GFR (CKD-EPI)AfAm 59 (>60 ml/min/1.73 sqM) Est GFR (CKD-EPI)NonAf 51 (>60 ml/min/1.73 sqM) Glucose 399 H (74-99) mg/dL Plasma Lactic Acid [place] 1.9 (0.7-2.0) mmol/L Calcium 9.6 (8.4-10.2) mg/dL Total Bilirubin 0.6 (0.2-1.3) mg/dL AST 26 (14-36) U/L ALT 37 H (4-34) U/L Alkaline Phosphatase 141 H (38-126) U/L Total Protein 7.6 (6.3-8.2) g/dL Albumin 4.3 (3.5-5.0) g/dL Amylase 62 (30-110) U/L Lipase 394 H (23-300) U/L Urine Color Urine Appearance (Clear) Urine pH (5.0-8.0) Ur Specific [place] (1.001-1.035) Urine Protein (Negative) Urine Glucose (UA) (Negative) Urine Ketones (Negative) Urine Blood (Negative) Urine Nitrite (Negative) Urine Bilirubin (Negative) Urine Urobilinogen (<2.0) mg/dL Ur Leukocyte Esterase (Negative) Urine RBC (0-5) /hpf Urine WBC (0-5) /hpf Ur Squamous Epith Cells (0-4) /hpf Urine Bacteria (None) /hpf Urine Mucus (None) /hpf Disposition Clinical Impression: Epigastric pain, Biliary colic Disposition: HOME SELF-CARE Condition: Stable Instructions (If sedation given, give patient instructions): Gallstones (ED) Additional Instructions: Please return to the Emergency Department if symptoms worsen or any other concerns. May use Toradol or Zofran for additional symptoms. Follow up with surgeon as discussed. Also follow-up with your regular doctor. Prescriptions: Ketorolac [Toradol] 10 mg PO Q8HR #8 tab Is patient prescribed a controlled substance at d/c from ED?: No Referrals: Ramiro Chávez MD [Primary Care Provider] - 1-2 days Ariel Gómez DO [Doctor of Osteopathic Medicine] - 1-2 days
[2020-04-08 06:47] LABS: Basophils # (A) 0.1 k/uL (0-0.2); Basophils % (A) 1 %; Eosinophils # (A) 0.2 k/uL (0-0.7); Eosinophils % (A) 2 %; HCT 43.9 % (34.0-46.0); Lymphocytes # (A) 1.8 k/uL (1.0-4.8); Lymphocytes % (A) 19 %; MCH 30.7 pg (25.0-35.0); MCHC 34.1 g/dL (31.0-37.0); MCV 90.1 fL (80.0-100.0); Mean Platelet Volume 8.1; Monocytes # (A) 0.4 k/uL (0-1.0); Monocytes % (A) 4 %; Neutrophils # (A) 6.8 k/uL (1.3-7.7); Neutrophils % (A) 73 %; Platelet Count 213 k/uL (150-450); RBC 4.87 m/uL (3.80-5.40); RDW 12.6 % (11.5-15.5); WBC 9.2 k/uL (3.8-10.6)
[2020-04-08 07:06] LABS: Appearance,Urine Clear (Clear); Bacteria,Urine Rare /hpf; Bilirubin,Urine Negative (Negative); Blood,Urine Small (Negative); Color,Urine Light Yellow; Glucose,Urine (UA) 4+ (Negative); Ketones,Urine Negative (Negative); Leukocyte Esterase,Urine Small (Negative); Mucus,Urine Rare /hpf; Nitrite,Urine Negative (Negative); PH, Urine 7.5 (5.0-8.0); Protein,Urine 2+ (Negative); RBC,Urine 19 /hpf (0-5); Specific Gravity,Urine 1.009 (1.001-1.035); Squamous Epithelial Cell,Urine <1 /hpf (0-4); Urobilinogen,Urine <2.0 mg/dL (<2.0); WBC,Urine 9 /hpf (0-5)
[2020-04-08 07:09] LABS: Albumin 4.3 g/dL (3.5-5.0); Calcium 9.6 mg/dL (8.4-10.2); Potassium 4.3 mmol/L (3.5-5.1); Total Bilirubin 0.6 mg/dL (0.2-1.3); Total Protein 7.6 g/dL (6.3-8.2)
[2020-04-08 07:28] LABS: INR 0.9 (<1.2); Partial Thromboplastin Time 25.5 sec (22.0-30.0); Prothrombin Time 10.2 sec (9.0-12.0)
--- NOTE | 2020-04-08 08:11 | CT ---
EXAMINATION TYPE: CT abdomen pelvis w con DATE OF EXAM: 04/08/2020 COMPARISON: 11/16/2015 HISTORY: Abd pain CT DLP: 1714.2 mGycm Automated exposure control for dose reduction was used. CONTRAST: CT scan of the abdomen pelvis is performed with IV Contrast, patient injected with 100 mL of Isovue 3 00. FINDINGS- LUNG BASES- No significant abnormality is appreciated. LIVER/GB-numerous gallstones. Liver slightly reduced attenuation correlate for mild hepatic steatosis . PANCREAS- No gross abnormality is seen. SPLEEN- No gross abnormality is seen. ADRENALS- No gross abnormality is seen. KIDNEYS/BLADDER-there is lobulation of the renal cortex of the right with cortical loss suggestive of chronic medical renal disease. Left kidney markedly atrophic.. There are approximately 7 or 8 calcif ications involving the right kidney with the largest measuring 9 mm. Renal pelvic calcification noted measuring 8 mm. Extrarenal pelvis with mild hydronephrosis. BOWEL-nonspecific bowel gas pattern. Normal appendix. LYMPH NODES- No greater than 1cm abdominal or pelvic lymph nodes areappreciated. OSSEOUS STRUCTURES-hypertrophic and degenerative changes of the spine. Severe changes at L4-L5. Right hip prostheses results in artifact which limits assessment of the pelvis.. Calcified disc or large a oswaldo spurring posteriorly at L4-5 results in severe canal stenosis. OTHER- bilateral prominence of the ovaries could be correlated with ultrasound is retrospectively st able from prior exam. Abnormal attenuation seen involving the lower anterior abdominal wall extending in the pelvis and subcutaneous tissues on the left may be postsurgical related to scarring. Finding unchanged from prior exam correlate for history of previous surgery in this region. IMPRESSION- 1. Chronic medical renal disease with numerous right-sided renal calculi and right renal pelvis calci fication. Mild right hydronephrosis. 2. Cholelithiasis. 3. Large area of calcification, spurring or calcified disc L4-L5 with severe canal stenosis suspected . 4. Bilateral ovarian prominence is stable from prior exam. Short-term follow-up pelvic ultrasound as clinically warranted. 5. Correlate for mild hepatic steatosis
[2020-04-08 08:16] VITALS: BP 124/76; PULSE 78
== END 2020-04-08 08:41 | disposition home or self-care (01) ==
LOC: EC 05:53
DX: K80.50 Calculus of bile duct without cholangitis or cholecystitis without obstruction (principal); F41.9 Anxiety disorder, unspecified; F32.9 Major depressive disorder, single episode, unspecified; N18.9 Chronic kidney disease, unspecified; E11.65 Type 2 diabetes mellitus with hyperglycemia; E78.5 Hyperlipidemia, unspecified; F17.200 Nicotine dependence, unspecified, uncomplicated; Z79.84 Long term (current) use of oral hypoglycemic drugs; Z79.899 Other long term (current) drug therapy; Z88.1 Allergy status to other antibiotic agents; Z88.2 Allergy status to sulfonamides; Z96.641 Presence of right artificial hip joint; Z87.442 Personal history of urinary calculi; E11.22 Type 2 diabetes mellitus with diabetic chronic kidney disease
CPT/HCPCS: 36415; 80053; 82150; 83605; 83690; 85025; 85610; 85730; 81001; 74177; 99284; 96374; 96375 ×2; 96361; J2405; J1885; C9113; Q9967

== ENCOUNTER 2020-04-12 01:45 | Emergency (ER) | payer BC ==
[2020-04-12 01:51] VITALS: RESP 18
[2020-04-12] MEDS ORDERED: SODIUM CHLORIDE 0.9% 1,000 ML IV STA (01:53)
[2020-04-12] MEDS ORDERED: HYDROmorphone 0.5 MG/0.5 ML SYRINGE IVP STA ×2 (02:03→02:46)
[2020-04-12] MEDS ORDERED: ONDANSETRON 4 MG/2 ML VIAL IVP STA (02:04)
--- NOTE | 2020-04-12 02:05 | ED ---
Abdominal Pain HPI - General Chief Complaint: Abdominal Pain Stated Complaint: Abd Pain Time Seen by Provider: 04/12/20 01:53 Source: patient, RN notes reviewed Mode of arrival: ambulatory Limitations: no limitations - History of Present Illness Initial Comments: This a 49-year-old female presents emergency Department with chief complaint right-sided abdominal pain. Patient is she was seen here a few days ago for similar complaints. Patient states she was diagnosed with gallstones. Patient states she follow-up with her primary care physician yesterday and states it schedule a HIDA scan. Patient states pain seemed to worsen today. Patient stat es she has nausea no vomiting no fevers chills no chest pain she states she has no current complaints of heartburn or dysuria no hematuria she's had on-and-off issues with constipation. - Related Data Home Medications Medication Instructions Recorded Confirmed Atorvastatin [Lipitor] 20 mg PO HS 09/16/18 01/28/20 Citalopram Hydrobromide [CeleXA] 20 mg PO DAILY 09/16/18 01/28/20 Losartan [Cozaar] 50 mg PO HS 09/16/18 01/28/20 rOPINIRole HCL [Requip] 1 mg PO HS 09/16/18 01/28/20 Ascorbic Acid [Vitamin C] 500 mg PO DAILY 01/20/20 01/28/20 Multivitamins, Thera [Multivitamin 1 tab PO DAILY 01/20/20 01/28/20 (formulary)] Omeprazole 20 mg PO DAILY 01/20/20 01/28/20 Semaglutide [Rybelsus] 7 mg PO DAILY 01/20/20 01/28/20 Previous Rx's Medication Instructions Recorded Azithromycin [Zithromax Z-pack (6 0 mg PO DIRECTED #6 tab 09/17/18 tabs)] Albuterol Inhaler (Mhu) [Ventolin 1 - 2 puff INHALATION Q4-6H PRN #1 05/13/19 Hfa Inhaler (Mhu)] inhaler Azithromycin [Zithromax Z-pack (6 0 mg PO DIRECTED #1 pack 05/13/19 tabs)] Ketorolac [Toradol] 10 mg PO Q8HR #8 tab 04/08/20 Cephalexin [Keflex] 500 mg PO Q8HR #21 cap 04/12/20 Allergies Allergy/AdvReac Type Severity Reaction Status Date / Time Sulfa (Sulfonamide AdvReac Nausea & Verified 04/08/20 05:59 Antibiotics) Vomiting sulfamethoxazole AdvReac Nausea & Verified 04/08/20 05:59 [From Bactrim] Vomiting trimethoprim [From Bactrim] AdvReac Nausea & Verified 04/08/20 05:59 Vomiting Review of Systems ROS Statement: Those systems with pertinent positive or pertinent negative responses have been documented in the HPI. ROS Other: All systems not noted in ROS Statement are negative. Past Medical History Past Medical History: Diabetes Mellitus, Hyperlipidemia, Pneumonia, Thyroid Disorder Additional Past Medical History / Comment(s): HEAD INJURY/concussion d/t fall at ge 6, kidney stones, past uti's, RLS."hypoparathyroidism",ddd, major depression History of Any Multi-Drug Resistant Organisms: None Reported Past Surgical History: Section, Joint Replacement, Tubal Ligation Additional Past Surgical History / Comment(s): rush. nephrostolithotomy, NEPHROSTOLITHOTOMY 11/15/15. nephrostomy tubes and removal, rt hip replacement, hx parathyroid bx, carpel tunnel bilateral Past Anesthesia/Blood Transfusion Reactions: No Reported Reaction Additional Past Anesthesia/Blood Transfusion Reaction / Comment(s): sheri terphobia Past Psychological History: Anxiety, Depression Smoking Status: Current some day smoker Past Alcohol Use History: None Reported Past Drug Use History: None Reported - Past Family History Father Family Medical History: Coronary Artery Disease (CAD), Diabetes Mellitus Sister(s) Family Medical History: Diabetes Mellitus Mother Family Medical History: Cancer, Diabetes Mellitus Additional Family Medical History / Comment(s): LUNG General Exam Limitations: no limitations General appearance: alert, in no apparent distress Head exam: Present: atraumatic, normocephalic, normal inspection Eye exam: Present: normal appearance, PERRL, EOMI. Absent: scleral icterus, conjunctival injection, periorbital swelling Neck exam: Present: normal inspection, full ROM. Absent: tenderness, meningismus, lymphadenopathy Respiratory exam: Present: normal lung sounds bilaterally. Absent: respiratory distress, wheezes, rales, rhonchi, stridor Cardiovascular Exam: Present: regular rate, normal rhythm, normal heart sounds. Absent: systolic murmur, diastolic murmur, rubs, gallop, clicks GI/Abdominal exam: Present: soft, tenderness (Moderate right upper quadrant), normal bowel sounds. Absent: distended, guarding, rebound, rigid Back exam: Absent: CVA tenderness (R), CVA tenderness (L) Neurological exam: Present: alert Skin exam: Present: warm, dry, intact, normal color. Absent: rash Course Vital Signs 04/12/20 01:46 Temperature 98.4 F Pulse Rate 71 Respiratory 18 Rate Blood Pressure 154/83 O2 Sat by Pulse 97 Oximetry Medical Decision Making - Medical Decision Making Labs were reviewed there are no significant abnormalities from prior labs. Patient has minimal hyperglycemia, patient does have evidence of urinary tract infection. Patient was given antibiotics. Patient was discharged in stable condition with close follow-up. - Lab Data Result diagrams: 04/12/20 02:14 04/12/20 02:14 Lab Results 04/12/20 04/12/20 04/12/20 Range/Units 02:14 02:14 02:14 WBC 13.0 H (3.8-10.6) k/uL RBC 4.60 (3.80-5.40) m/uL Hgb 14.4 (11.4-16.0) gm/dL Hct 40.9 (34.0-46.0) % MCV 89.0 (80.0-100.0) fL MCH 31.4 (25.0-35.0) pg MCHC 35.2 (31.0-37.0) g/dL RDW 12.5 (11.5-15.5) % Plt Count 222 (150-450) k/uL MPV 7.6 Neutrophils % 78 % Lymphocytes % 14 % Monocytes % 4 % Eosinophils % 2 % Basophils % 1 % Neutrophils # 10.2 H (1.3-7.7) k/uL Lymphocytes # 1.8 (1.0-4.8) k/uL Monocytes # 0.5 (0-1.0) k/uL Eosinophils # 0.2 (0-0.7) k/uL Basophils # 0.1 (0-0.2) k/uL Sodium 139 (137-145) mmol/L Potassium 4.4 (3.5-5.1) mmol/L Chloride 108 H (98-107) mmol/L Carbon Dioxide 26 (22-30) mmol/L Anion Gap 5 mmol/L BUN 19 H (7-17) mg/dL Creatinine 1.21 H (0.52-1.04) mg/dL Est GFR (CKD-EPI)AfAm 61 (>60 ml/min/1.73 sqM) Est GFR (CKD-EPI)NonAf 53 (>60 ml/min/1.73 sqM) Glucose 225 H (74-99) mg/dL Plasma Lactic Acid [place] (0.7-2.0) mmol/L Calcium 9.5 (8.4-10.2) mg/dL Total Bilirubin 0.6 (0.2-1.3) mg/dL AST 24 (14-36) U/L ALT 30 (4-34) U/L Alkaline Phosphatase 131 H (38-126) U/L Total Protein 7.6 (6.3-8.2) g/dL Albumin 4.1 (3.5-5.0) g/dL Lipase 234 (23-300) U/L Urine Color Light Yellow Urine Appearance Clear (Clear) Urine pH 7.5 (5.0-8.0) Ur Specific [place] 1.015 (1.001-1.035) Urine Protein 2+ H (Negative) Urine Glucose (UA) Negative (Negative) Urine Ketones Negative (Negative) Urine Blood Trace H (Negative) Urine Nitrite Negative (Negative) Urine Bilirubin Negative (Negative) Urine Urobilinogen <2.0 (<2.0) mg/dL Ur Leukocyte Esterase Moderate H (Negative) Urine RBC 15 H (0-5) /hpf Urine WBC 42 H (0-5) /hpf Ur Squamous Epith Cells 1 (0-4) /hpf Urine Bacteria Rare H (None) /hpf Urine Mucus Rare H (None) /hpf 04/12/20 Range/Units 02:14 WBC (3.8-10.6) k/uL RBC (3.80-5.40) m/uL Hgb (11.4-16.0) gm/dL Hct (34.0-46.0) % MCV (80.0-100.0) fL MCH (25.0-35.0) pg MCHC (31.0-37.0) g/dL RDW (11.5-15.5) % Plt Count (150-450) k/uL MPV Neutrophils % % Lymphocytes % % Monocytes % % Eosinophils % % Basophils % % Neutrophils # (1.3-7.7) k/uL Lymphocytes # (1.0-4.8) k/uL Monocytes # (0-1.0) k/uL Eosinophils # (0-0.7) k/uL Basophils # (0-0.2) k/uL Sodium (137-145) mmol/L Potassium (3.5-5.1) mmol/L Chloride (98-107) mmol/L Carbon Dioxide (22-30) mmol/L Anion Gap mmol/L BUN (7-17) mg/dL Creatinine (0.52-1.04) mg/dL Est GFR (CKD-EPI)AfAm (>60 ml/min/1.73 sqM) Est GFR (CKD-EPI)NonAf (>60 ml/min/1.73 sqM) Glucose (74-99) mg/dL Plasma Lactic Acid [place] 1.1 (0.7-2.0) mmol/L Calcium (8.4-10.2) mg/dL Total Bilirubin (0.2-1.3) mg/dL AST (14-36) U/L ALT (4-34) U/L Alkaline Phosphatase (38-126) U/L Total Protein (6.3-8.2) g/dL Albumin (3.5-5.0) g/dL Lipase (23-300) U/L Urine Color Urine Appearance (Clear) Urine pH (5.0-8.0) Ur Specific [place] (1.001-1.035) Urine Protein (Negative) Urine Glucose (UA) (Negative) Urine Ketones (Negative) Urine Blood (Negative) Urine Nitrite (Negative) Urine Bilirubin (Negative) Urine Urobilinogen (<2.0) mg/dL Ur Leukocyte Esterase (Negative) Urine RBC (0-5) /hpf Urine WBC (0-5) /hpf Ur Squamous Epith Cells (0-4) /hpf Urine Bacteria (None) /hpf Urine Mucus (None) /hpf Disposition Clinical Impression: UTI (urinary tract infection), Hyperglycemia, Abdominal pain Disposition: HOME SELF-CARE Condition: Stable Instructions (If sedation given, give patient instructions): Abdominal Pain (ED) Additional Instructions: Please return to the Emergency Department if symptoms worsen or any other concerns. Prescriptions: Cephalexin [Keflex] 500 mg PO Q8HR #21 cap Is patient prescribed a controlled substance at d/c from ED?: No Referrals: Ramiro Chávez MD [Primary Care Provider] - 1-2 days Luis Love MD [STAFF PHYSICIAN] - 1-2 days Time of Disposition: 02:42
[2020-04-12 02:23] LABS: Basophils # (A) 0.1 k/uL (0-0.2); Basophils % (A) 1 %; Eosinophils # (A) 0.2 k/uL (0-0.7); Eosinophils % (A) 2 %; HCT 40.9 % (34.0-46.0); HGB 14.4 gm/dL (11.4-16.0); Lymphocytes # (A) 1.8 k/uL (1.0-4.8); Lymphocytes % (A) 14 %; MCH 31.4 pg (25.0-35.0); MCHC 35.2 g/dL (31.0-37.0); Mean Platelet Volume 7.6; Monocytes # (A) 0.5 k/uL (0-1.0); Monocytes % (A) 4 %; Neutrophils # (A) 10.2 k/uL (1.3-7.7); Neutrophils % (A) 78 %; Platelet Count 222 k/uL (150-450); RDW 12.5 % (11.5-15.5)
[2020-04-12 02:27] LABS: Appearance,Urine Clear (Clear); Bacteria,Urine Rare /hpf; Bilirubin,Urine Negative (Negative); Blood,Urine Trace (Negative); Color,Urine Light Yellow; Glucose,Urine (UA) Negative (Negative); Ketones,Urine Negative (Negative); Leukocyte Esterase,Urine Moderate (Negative); Mucus,Urine Rare /hpf; Nitrite,Urine Negative (Negative); PH, Urine 7.5 (5.0-8.0); Protein,Urine 2+ (Negative); RBC,Urine 15 /hpf (0-5); Specific Gravity,Urine 1.015 (1.001-1.035); Squamous Epithelial Cell,Urine 1 /hpf (0-4); Urobilinogen,Urine <2.0 mg/dL (<2.0); WBC,Urine 42 /hpf (0-5)
[2020-04-12 02:34] LABS: Albumin 4.1 g/dL (3.5-5.0); Calcium 9.5 mg/dL (8.4-10.2); Potassium 4.4 mmol/L (3.5-5.1); Total Bilirubin 0.6 mg/dL (0.2-1.3); Total Protein 7.6 g/dL (6.3-8.2)
[2020-04-12] MEDS ORDERED: cefTRIAXone IN SWFI 1,000 MG/10 ML SYRINGE IVP STA (02:41)
--- NOTE | 2020-04-12 02:41 | XR ---
EXAM: XR Abdomen, 1 View CLINICAL HISTORY: ITS.REASON XR Reason: abdominal pain TECHNIQUE: Frontal supine view of the abdomen/pelvis. COMPARISON: 01/31/2016 FINDINGS: Gastrointestinal tract: Copious amounts of stool. No dilation. Bones/joints: No acute fracture. No dislocation. Right total hip arthroplasty hardware. Mild left hip osteoarthrosis. IMPRESSION: No acute findings.
[2020-04-12] MEDS ORDERED: ACET/COD 300 MG/30 MG STARTER PACK 6 TAB BTL PO STA (02:43)
[2020-04-12] MEDS ORDERED: ONDANSETRON 4 MG ODT STARTER PACK 2 TAB BTL PO STA (02:43)
[2020-04-12 04:42] VITALS: BP 154/81; PULSE 64; TEMP 98.5
== END 2020-04-12 04:05 | disposition home or self-care (01) ==
LOC: EC 01:45
DX: N39.0 Urinary tract infection, site not specified (principal); E11.65 Type 2 diabetes mellitus with hyperglycemia; F17.200 Nicotine dependence, unspecified, uncomplicated; E78.5 Hyperlipidemia, unspecified; G25.81 Restless legs syndrome; E20.9 Hypoparathyroidism, unspecified; F41.9 Anxiety disorder, unspecified; F32.9 Major depressive disorder, single episode, unspecified; Z79.899 Other long term (current) drug therapy; Z79.84 Long term (current) use of oral hypoglycemic drugs; Z88.2 Allergy status to sulfonamides; Z88.1 Allergy status to other antibiotic agents; Z87.442 Personal history of urinary calculi; Z98.890 Other specified postprocedural states; Z96.641 Presence of right artificial hip joint; Z90.89 Acquired absence of other organs
CPT/HCPCS: 36415; 80053; 83605; 83690; 85025; 81001; 87086; 74018; 99284; 96374; 96375 ×2; 96376; 96361; J2405; J0696; S0119; J1170

== ENCOUNTER 2020-04-26 06:11 | Day surgery (SDC) | payer BC ==
[2020-04-25 09:00] VITALS: BMI 36.0
[~2020-04-26 06:11] MED LIST: ACETAMINOPHEN TAB 500 MG TAB PO PRN; DEXAMETHASONE SOD PHOSPHATE 4 MG/ML 1 ML VIAL IV ONE; HEPARIN SODIUM,PORCINE 5,000 UNIT/ML 1 ML VIAL SQ PRN; LACTATED RINGERS 1,000 ML IV SCH; LIDOCAINE 1% (10MG/ML) FOR IV START INTRADERMA PRN; ONDANSETRON 4 MG/2 ML VIAL IVP ONE; SCOPOLAMINE 1.5MG/72HR PATCH TRANSDERM ONE
[2020-04-26] MEDS ORDERED: ONDANSETRON 4 MG/2 ML VIAL IVP PRN (07:00)
[2020-04-26] MEDS ORDERED: MIDAZOLAM 2 MG/2 ML VIAL IV PRN (07:00)
[2020-04-26 07:08] LABS: Glucose,Whole Blood 125 mg/dL (75-99)
[2020-04-26] MEDS ORDERED: ACETAMINOPHEN TAB 500 MG TAB PO ONE (07:18)
[2020-04-26] MEDS ORDERED: BUPIVACAINE (PF) 0.25% 30 ML VIAL SQ ONE (07:21)
[2020-04-26] MEDS ORDERED: SUCCINYLCHOLINE CHLORIDE 100 MG/5 ML SYR IV ONE (07:43)
[2020-04-26] MEDS ORDERED: GLYCOPYRROLATE 0.2 MG/ML 2 ML VIAL ONE (07:43)
[2020-04-26] MEDS ORDERED: MIDAZOLAM 2 MG/2 ML VIAL ONE (07:43)
[2020-04-26] MEDS ORDERED: HYDROmorphone (PF) 1 MG/ML ONE (07:43)
[2020-04-26] MEDS ORDERED: ROCURONIUM 10 MG/ML (10 ML VIAL) IV ONE (07:43)
[2020-04-26] MEDS ORDERED: NEOSTIGMINE 1 MG/ML 10 ML VIAL ONE (07:43)
[2020-04-26] MEDS ORDERED: fentaNYL (PF) 50 MCG/ML 2 ML AMP ONE (07:43)
[2020-04-26] MEDS ORDERED: LIDOCAINE 1% INJ 10MG/ML (20 ML MDV) ONE (07:43)
[2020-04-26] MEDS ORDERED: PROPOFOL 10 MG/ML 20 ML VIAL IV ONE (07:43)
[2020-04-26 09:22] VITALS: TEMP 97.2
--- NOTE | 2020-04-26 09:33 | P.GSHP ---
History of Present Illness H&P Date: 04/26/20 Chief Complaint: Right upper quadrant pain Is a 49-year-old female with complete the right upper quadrant pain. Patient presents today for laparoscopic cholestatic. She is a known history of gallstones Past Medical History Past Medical History: Diabetes Mellitus, GERD/Reflux, Hyperlipidemia, Hypertension, Liver Disease, Pneumonia, Thyroid Disorder Additional Past Medical History / Comment(s): HEAD INJURY/concussion d/t fall at ge 6, kidney stones, thyroid nodules, ddd, no rx for BP, restless leg syndrome, gallstones, fatty liver, History of Any Multi-Drug Resistant Organisms: None Reported Past Surgical History: Section, Joint Replacement, Orthopedic Surgery, Tubal Ligation Additional Past Surgical History / Comment(s): rsuh. nephrostolithotomy, nephrostomy tubes/later removal, rt hip replacement, hx parathyroid bx, carpel tunnel bilateral Past Anesthesia/Blood Transfusion Reactions: No Reported Reaction Additional Past Anesthesia/Blood Transfusion Reaction / Comment(s): claustrophobia Smoking Status: Current some day smoker - Past Family History Father Family Medical History: Coronary Artery Disease (CAD), Diabetes Mellitus Sister(s) Family Medical History: Diabetes Mellitus Mother Family Medical History: Cancer Additional Family Medical History / Comment(s): LUNG Medications and Allergies Home Medications Medication Instructions Recorded Confirmed Type Atorvastatin [Lipitor] 20 mg PO HS 09/16/18 04/26/20 History rOPINIRole HCL [Requip] 1 mg PO HS 09/16/18 04/26/20 History Omeprazole 20 mg PO DAILY 01/20/20 04/26/20 History Ergocalciferol (Vitamin D2) 1,250 mcg PO MO 04/25/20 04/26/20 History [Vitamin D2 (50,000 Iu)] Repaglinide [Prandin] 0.5 mg PO AC-TID 04/25/20 04/26/20 History Semaglutide [Rybelsus] 14 mg PO QAM 04/25/20 04/26/20 History traMADol HCL [Ultram] 50 mg PO Q4-6H PRN 04/25/20 04/26/20 History Allergies Allergy/AdvReac Type Severity Reaction Status Date / Time Sulfa (Sulfonamide AdvReac Nausea & Verified 04/26/20 06:55 Antibiotics) Vomiting sulfamethoxazole AdvReac Nausea & Verified 04/26/20 06:55 [From Bactrim] Vomiting trimethoprim [From Bactrim] AdvReac Nausea & Verified 04/26/20 06:55 Vomiting Surgical - Exam Vital Signs Temp Pulse Resp BP Pulse Ox 97.3 F L 106 H 18 125/66 97 04/26/20 06:50 04/26/20 06:50 04/26/20 06:50 04/26/20 06:50 04/26/20 06:50 - General well developed, well nourished, no distress - Eyes PERRL - ENT normal pinna - Neck no masses - Respiratory normal expansion - Cardiovascular Rhythm: regular - Abdomen Abdomen: soft, non tender Results - Labs Abnormal Lab Results - Last 24 Hours (Table) 04/26/20 Range/Units 07:04 POC Glucose (mg/dL) 125 H (75-99) mg/dL Assessment and Plan Assessment: Right quadrant pain Cholelithiasis We'll perform laparoscopic cholecystectomy
--- NOTE | 2020-04-26 09:40 | P.OP ---
Date of Procedure: 04/26/20 Preoperative Diagnosis: Cholelithiasis Postoperative Diagnosis: Cholelithiasis Empyema of gallbladder Chronic cholecystitis with markedly thickened gallbladder wall Procedure(s) Performed: Laparoscopic cholecystectomy Anesthesia: ZULYA Surgeon: Luis Love Estimated Blood Loss (ml): 10 Pathology: other (r the bladder) Condition: stable Disposition: PACU Description of Procedure: The patient was placed on the operating table. The patient received a general endotracheal tube anesthesia. The patients abdomen was prepped and draped in the usual sterile fashion. Through an infraumbilical stab incision, the fascia of the anterior abdominal wall was grasped with a pair of Kochers and then the Veress needle was placed in the peritoneal cavity. Position of the Veress needle was confirmed with positive drop test. The abdomen was then insufflated. After adequate insufflation, the 10 mm trocar was placed in the peritoneal cavity. Following this the laparoscope was placed in the peritoneal cavity. The patient was placed in the head-up, right side up position and then a 5 mm trocar was placed in the right lateral and right subcostal position under direct visualization. A 8 mm trocar was placed in the epigastric position. The gallbladder was grasped in the fundus and infundibulum. The gallbladder was grossly thickened. There adhesions to the gallbladder. These were lysed using the Harmonic scissors. The gallbladder was quite tense and firm. The gallbladder is aspirated. It was noted to have pus within the gallbladder. Traction on the gallbladder was placed in the lateral and the cephalad positions. The triangle of Calot was visualized.. The cystic duct was bluntly dissected until the union of the cystic duct and common bile duct was seen. A critical view of safety was achieved. The area of the cystic duct was very inflamed. As side to perform a subtotal cholecystectomy by dividing the neck of the gallbladder. Using a [place] dissector the neck of the gallbladder was dissected. A 2-0 Ethibond sutures placed around the neck of the gallbladder and this was secured with a tie knot device. The gallbladder was then divided using Harmonic scissors. The gallbladder then withdrawn from the bed using Harmonic scissors. The gallbladder was then placed into an Endo Catch and brought out through the 10 mm trocar site. The gallbladder fascia was then irrigated. As no bleeding seen. The trochars withdrawn. The skin closed interrupted 3-0 Monocryl suture. Dermabond was applied. Patient top she will was sent to recovery in stable condition.
[2020-04-26] MEDS: HYDROmorphone 0.5 MG/0.5 ML SYRINGE IVP PRN ×4 (09:47→10:21)
[2020-04-26 10:36] LABS: Glucose,Whole Blood 176 mg/dL (75-99)
[2020-04-26 11:46] VITALS: RESP 16
[2020-04-26 12:48] VITALS: BP 105/67; PULSE 97
== END 2020-04-26 12:45 | disposition home or self-care (01) ==
LOC: OR 06:11
PROVIDERS: ATTEND Surgery
DX: K81.2 Acute cholecystitis with chronic cholecystitis (principal); I10 Essential (primary) hypertension; E78.5 Hyperlipidemia, unspecified; F17.210 Nicotine dependence, cigarettes, uncomplicated; E11.9 Type 2 diabetes mellitus without complications; E07.9 Disorder of thyroid, unspecified; Z87.442 Personal history of urinary calculi; F32.9 Major depressive disorder, single episode, unspecified; F40.240 Claustrophobia; Z88.2 Allergy status to sulfonamides; G25.81 Restless legs syndrome; K21.9 Gastro-esophageal reflux disease without esophagitis; K76.0 Fatty (change of) liver, not elsewhere classified; Z79.899 Other long term (current) drug therapy; Z83.3 Family history of diabetes mellitus; Z82.49 Family history of ischemic heart disease and other diseases of the circulatory system; Z80.1 Family history of malignant neoplasm of trachea, bronchus and lung; Z96.641 Presence of right artificial hip joint; Z98.891 History of uterine scar from previous surgery; Z98.51 Tubal ligation status; Z98.890 Other specified postprocedural states; Z87.01 Personal history of pneumonia (recurrent)
CPT/HCPCS: 81025; 88304; 47562; J2250; J1644; J1100; J2710; J0690; J2405; J2001; J3010; J1170 ×2; J0330; J2704

== ENCOUNTER 2020-06-17 17:57 | Inpatient (IN) | payer BC ==
[2020-06-17] MEDS ORDERED: KETOROLAC 15 MG/ML 1 ML VIAL IM STA (18:19)
--- NOTE | 2020-06-17 18:29 | ED ---
Back Pain HPI - General Source: patient, RN notes reviewed Mode of arrival: ambulatory Limitations: no limitations - History of Present Illness MD Complaint: back pain -: days(s) (2) Similar Symptoms Previously: No Place: home Severity: severe Severity scale (1-10): 10 Quality: crushing Consistency: constant Improves With: none Worsens With: movement Context: unknown Associated Symptoms: other (dark urine) Treatments Prior to Arrival: NSAIDS (motrin yesterday with no relief, gas x with no relief) <Kushal Contreras - Last Filed: 06/17/20 19:29> <Rajendra Sánchez - Last Filed: 06/17/20 22:27> - General Chief Complaint: Back Pain/Injury Stated Complaint: Back pain, chest pain Time Seen by Provider: 06/17/20 18:09 - History of Present Illness Initial Comments: 49-year-old white female patient presents to the emergency room with complaints of 2 days of mid thoracic back pain. Patient denies injury. Patient does not report weight loss, dysuria, nausea vomiting or fevers. Patient denies numbness or weakness in lower extremities. Patient denies any particular apathy. Pa hilda states did not make with pain 2 days ago developed gradually. This has not experienced this type of pain before. It is not exacerbated by position no position makes it better or worse. Patient tried Motrin and Gas-X at home with no relief. Patient denies any previous back problems. States has history of kidney stones but does not feel like this is a kidney stone. Patient has gallbladder removed. Patient ambulatory in room. States radiates into her abdomen. Patient states pain is 10 out of 10. No bowel or bladder dysfunction. No cough or chest pain. Patient with a history of diabetes, hypertension, GERD, liver disease, goiter, and right hip surgery several years ago. Patient has a heart rate of 98, respiratory rate 18 blood pressure 139/86 oxygen saturation 99% on room air. (Kushal Contreras) - Related Data Home Medications Medication Instructions Recorded Confirmed Atorvastatin [Lipitor] 20 mg PO HS 09/16/18 04/26/20 rOPINIRole HCL [Requip] 1 mg PO HS 09/16/18 04/26/20 Omeprazole 20 mg PO DAILY 01/20/20 04/26/20 Ergocalciferol (Vitamin D2) 1,250 mcg PO MO 04/25/20 04/26/20 [Vitamin D2 (50,000 Iu)] Repaglinide [Prandin] 0.5 mg PO AC-TID 04/25/20 04/26/20 Semaglutide [Rybelsus] 14 mg PO QAM 04/25/20 04/26/20 traMADol HCL [Ultram] 50 mg PO Q4-6H PRN 04/25/20 04/26/20 Previous Rx's Medication Instructions Recorded Acetaminophen Tab [Tylenol] 650 mg PO Q6H #30 tab 04/26/20 Docusate [Colace] 100 mg PO BID #20 capsule 04/26/20 Ibuprofen [Motrin] 600 mg PO Q6HR PRN #40 tab 04/26/20 oxyCODONE HCL [OxyIR] 5 mg PO Q4H PRN 3 Days #18 tab 04/26/20 Allergies Allergy/AdvReac Type Severity Reaction Status Date / Time Sulfa (Sulfonamide AdvReac Nausea & Verified 06/17/20 18:06 Antibiotics) Vomiting sulfamethoxazole AdvReac Nausea & Verified 06/17/20 18:06 [From Bactrim] Vomiting trimethoprim [From Bactrim] AdvReac Nausea & Verified 06/17/20 18:06 Vomiting Review of Systems ROS Other: All systems not noted in ROS Statement are negative. <Kushal Contreras - Last Filed: 06/17/20 19:29> ROS Other: All systems not noted in ROS Statement are negative. <Rajendra Sánchez - Last Filed: 06/17/20 22:27> ROS Statement: Those systems with pertinent positive or pertinent negative responses have been documented in the HPI. Past Medical History Past Medical History: Diabetes Mellitus, GERD/Reflux, Hyperlipidemia, Hypertension, Liver Disease, Pneumonia, Thyroid Disorder Additional Past Medical History / Comment(s): HEAD INJURY/concussion d/t fall at ge 6, kidney stones, thyroid nodules, ddd, no rx for BP, restless leg syndrome, gallstones, fatty liver, History of Any Multi-Drug Resistant Organisms: None Reported Past Surgical History: Section, Joint Replacement, Orthopedic Surgery, Tubal Ligation Additional Past Surgical History / Comment(s): rush. nephrostolithotomy, nephrostomy tubes/later removal, rt hip replacement, hx parathyroid bx, carpel tunnel bilateral Past Anesthesia/Blood Transfusion Reactions: No Reported Reaction Additional Past Anesthesia/Blood Transfusion Reaction / Comment(s): claustrophobia Past Psychological History: Depression Smoking Status: Current some day smoker Past Alcohol Use History: None Reported Past Drug Use History: None Reported - Past Family History Father Family Medical History: Coronary Artery Disease (CAD), Diabetes Mellitus Sister(s) Family Medical History: Diabetes Mellitus Mother Family Medical History: Cancer Additional Family Medical History / Comment(s): LUNG <Kushal Contreras - Last Filed: 06/17/20 19:29> General Exam Limitations: no limitations General appearance: alert, in no apparent distress Head exam: Present: atraumatic, normocephalic, normal inspection Eye exam: Present: normal appearance, PERRL, EOMI. Absent: scleral icterus, conjunctival injection, periorbital swelling ENT exam: Present: normal exam, mucous membranes moist Neck exam: Present: full ROM, thyromegaly (was schedule to have goiter removed, biopsy negative). Absent: tenderness, meningismus, lymphadenopathy Respiratory exam: Present: normal lung sounds bilaterally. Absent: respiratory distress, wheezes, rales, rhonchi, stridor Cardiovascular Exam: Present: regular rate, normal rhythm, normal heart sounds. Absent: systolic murmur, diastolic murmur, rubs, gallop, clicks, JVD GI/Abdominal exam: Present: soft, normal bowel sounds. Absent: distended, tenderness, guarding, rebound, rigid Back exam: Present: normal inspection, tenderness (thoracic spine with palpation t12-l2), vertebral tenderness. Absent: rash noted Neurological exam: Present: alert, oriented X3, CN II-XII intact Psychiatric exam: Present: normal affect, normal mood Skin exam: Present: warm, dry, intact, normal color. Absent: rash <Kushal Contreras - Last Filed: 06/17/20 19:29> Course <Rajendra Sánchez - Last Filed: 06/17/20 22:27> Vital Signs 06/17/20 06/17/20 18:03 20:29 Temperature 98 F 97.7 F Pulse Rate 92 70 Respiratory 18 16 Rate Blood Pressure 139/86 138/81 O2 Sat by Pulse 99 97 Oximetry - Reevaluation(s) Reevaluation #1: 06/17/20 22:13 Case, H&P, test results and ED management thus far were discussed with Dr. Aragon (general surgery). He accepts hospital admission. He recommends GI consultation with Dr. Villanueva. He also recommends IV antibiotic treatment with Zosyn. He has no further recommendations at this time. 06/17/20 22:24 Patient was endorsed to me by ED MAGALI Contreras secondary to end of her shift. Patient's labs and imaging studies are consistent with an obstructing gallstone, as well as a UTI. Dr. Aragon was contacted from the emergency room, and he has accepted hospital admission. IV antibiotics have been given in the ED. (Rajendra Sánchez) Medical Decision Making <Kushal Contreras - Last Filed: 06/17/20 19:29> - Lab Data Result diagrams: 06/17/20 19:14 06/17/20 19:14 - Radiology Data Radiology results: report reviewed (CT abd/pelv: appears to be a common duct stone, probably other retained stones in the common hepatic duct and common bile duct, it is not clear if the gallbladder still present, there is new dilation of the common bile duct compared to old exam, large right renal calculi without definite obstruction) <Rajendra Sánchez - Last Filed: 06/17/20 22:27> - Medical Decision Making Case discussed with Dr. Gallagher, labs and CT ordered. Patient will be treated with Rocephin 1 g IVPB for her urinary tract infection. Case turned over to Dr. Gallagher. (Kushal Contreras) - Lab Data Lab Results 06/17/20 06/17/20 06/17/20 Range/Units 18:33 19:14 19:14 WBC 6.8 (3.8-10.6) k/uL RBC 5.04 (3.80-5.40) m/uL Hgb 15.5 (11.4-16.0) gm/dL Hct 44.8 (34.0-46.0) % MCV 88.9 (80.0-100.0) fL MCH 30.8 (25.0-35.0) pg MCHC 34.6 (31.0-37.0) g/dL RDW 13.0 (11.5-15.5) % Plt Count 247 (150-450) k/uL MPV 7.7 Neutrophils % 65 % Lymphocytes % 27 % Monocytes % 5 % Eosinophils % 1 % Basophils % 1 % Neutrophils # 4.4 (1.3-7.7) k/uL Lymphocytes # 1.8 (1.0-4.8) k/uL Monocytes # 0.4 (0-1.0) k/uL Eosinophils # 0.1 (0-0.7) k/uL Basophils # 0.0 (0-0.2) k/uL Sodium 139 (137-145) mmol/L Potassium 4.1 (3.5-5.1) mmol/L Chloride 106 (98-107) mmol/L Carbon Dioxide 23 (22-30) mmol/L Anion Gap 10 mmol/L BUN 14 (7-17) mg/dL Creatinine 1.51 H (0.52-1.04) mg/dL Est GFR (CKD-EPI)AfAm 47 (>60 ml/min/1.73 sqM) Est GFR (CKD-EPI)NonAf 40 (>60 ml/min/1.73 sqM) Glucose 99 (74-99) mg/dL Calcium 10.0 (8.4-10.2) mg/dL Total Bilirubin 7.6 H (0.2-1.3) mg/dL AST 376 H (14-36) U/L ALT 318 H (4-34) U/L Alkaline Phosphatase 367 H (38-126) U/L Total Protein 8.2 (6.3-8.2) g/dL Albumin 4.5 (3.5-5.0) g/dL Amylase 56 (30-110) U/L Lipase 265 (23-300) U/L Urine Color [place] Urine Appearance Turbid H (Clear) Urine pH 6.0 (5.0-8.0) Ur Specific [place] 1.016 (1.001-1.035) Urine Protein 2+ H (Negative) Urine Glucose (UA) Negative (Negative) Urine Ketones Negative (Negative) Urine Blood Small H (Negative) Urine Nitrite Negative (Negative) Urine Bilirubin 2+ H (Negative) Urine Urobilinogen 3.0 (<2.0) mg/dL Ur Leukocyte Esterase Large H (Negative) Urine RBC 57 H (0-5) /hpf Urine WBC >182 H (0-5) /hpf Urine WBC Clumps Many H (None) /hpf Ur Squamous Epith Cells 10 H (0-4) /hpf Urine Bacteria Many H (None) /hpf Urine Mucus Rare H (None) /hpf - Radiology Data Gallbladder ultrasound: Shadowing in the right upper quadrant at the gallbladder fossa consistent with gallstone. Distal common bile duct not well-visualized. Right kidney shows no hydronephrosis. No discrete liver mass. It is not clear if the gallbladder is present or not. There is no sign of ascites. (Rajendra Sánchez) Disposition <Kushal Contreras - Last Filed: 06/17/20 19:29> Is patient prescribed a controlled substance at d/c from ED?: No Time of Disposition: 22:16 <Rajendra Sánchez - Last Filed: 06/17/20 22:27> Clinical Impression: UTI (urinary tract infection), Choledocholithiasis Disposition: ADMITTED IP TO THIS HOSP Condition: Stable Referrals: Ramiro hCávez MD [Primary Care Provider] - 1-2 days
[2020-06-17 18:44] LABS: Appearance,Urine Turbid (Clear); Bacteria,Urine Many /hpf; Bilirubin,Urine 2+ (Negative); Blood,Urine Small (Negative); Color,Urine Orange; Glucose,Urine (UA) Negative (Negative); Ketones,Urine Negative (Negative); Leukocyte Esterase,Urine Large (Negative); Mucus,Urine Rare /hpf; Nitrite,Urine Negative (Negative); Protein,Urine 2+ (Negative); RBC,Urine 57 /hpf (0-5); Specific Gravity,Urine 1.016 (1.001-1.035); Squamous Epithelial Cell,Urine 10 /hpf (0-4); WBC,Urine >182 /hpf (0-5)
[2020-06-17] MEDS ORDERED: SODIUM CHLORIDE 0.9% 1,000 ML IV STA (19:03)
[2020-06-17] MEDS ORDERED: MORPHINE SULFATE 2 MG/ML SYRINGE IVP ONE (19:07)
[2020-06-17 19:35] LABS: Basophils % (A) 1 %; Eosinophils # (A) 0.1 k/uL (0-0.7); Eosinophils % (A) 1 %; HCT 44.8 % (34.0-46.0); HGB 15.5 gm/dL (11.4-16.0); Lymphocytes # (A) 1.8 k/uL (1.0-4.8); Lymphocytes % (A) 27 %; MCH 30.8 pg (25.0-35.0); MCHC 34.6 g/dL (31.0-37.0); MCV 88.9 fL (80.0-100.0); Mean Platelet Volume 7.7; Monocytes # (A) 0.4 k/uL (0-1.0); Monocytes % (A) 5 %; Neutrophils # (A) 4.4 k/uL (1.3-7.7); Neutrophils % (A) 65 %; Platelet Count 247 k/uL (150-450); RBC 5.04 m/uL (3.80-5.40); WBC 6.8 k/uL (3.8-10.6)
[2020-06-17 19:43] LABS: Albumin 4.5 g/dL (3.5-5.0); Potassium 4.1 mmol/L (3.5-5.1); Total Bilirubin 7.6 mg/dL (0.2-1.3); Total Protein 8.2 g/dL (6.3-8.2)
--- NOTE | 2020-06-17 20:03 | CT ---
EXAMINATION TYPE: CT abdomen pelvis wo con DATE OF EXAM: 06/17/2020 COMPARISON: 04/08/2020 HISTORY: Abdominal pain CT DLP: 830.5 mGycm Automated exposure control for dose reduction was used. There is some mild emphysematous changes in the lower lobes. There is no pleural effusion. Heart size is normal. There is no pericardial effusion. Liver shows no focal defect. Spleen is intact. There is no pancreatic mass. It is not clear if the gallbladder is present. There are multiple calcifications at the jourdan hepatis. These appear to be the same gallstones evident on the previous CT scan it were within the gallbladder. There appears to be a stone in the distal common bile duct. Common bile duct measures 12 mm. There is dilation of the common bile duct which is a change compared to old exam. There is no adrenal mass. There is significant atrophy left kidney. There is compensatory hypertrophy of the right kidney. There are multiple large right renal calculi. There is 1 cm calculus in the rig ht renal pelvis. The right and left ureter are not dilated. Bladder distends smoothly. There is right hip prosthesis. Uterus is anteverted. There is no inguinal hernia. There is some thickening of the a nterior abdominal wall that could be related to previous surgery. Unchanged. There is no mesenteric edema. There is no ascites or free air. There is no bowel obstruction. Appendi x appears normal. The lumbar vertebra have normal alignment. There is large posterior calcified disc herniation at L4-5 with spinal stenosis. The bony pelvis is intact. IMPRESSION: Rounded calcifications right upper quadrant. There appears to be a common duct stone and is one of t he gallbladder calculi demonstrated on old CT scan. There is probably other retained stones in the co mmon hepatic duct and common bile duct. It is not clear if the gallbladder is still present. There is a new dilation of the common bile duct compared to old exam consistent with obstruction. Normal appendix. Increased density on the lower anterior abdominal wall extending into the subcutaneo us fat consistent with scar tissue unchanged. Large right renal calculi without definite obstruction. No change.
--- NOTE | 2020-06-17 21:49 | US ---
EXAMINATION TYPE: US gallbladder DATE OF EXAM: 06/17/2020 COMPARISON: NONE CLINICAL HISTORY: abnormal CT, elevated LFT's. Elevated LFTs patient states had gallbladder removed l ast month. EXAM MEASUREMENTS: Liver Length: 20 cm Gallbladder Wall: Patient states was removed last month. CBD: .6 cm Right Kidney: 15.2 x 5.3 x 5.6 cm Pancreas: Tail obscured by overlying bowel gas Liver: Increased attenuation hepatomegaly. Gallbladder: There is area in gallbladder fossa that appears to look like gallbladder with a stone?? ? Evidence for sonographic Schwarz's sign: CBD: wnl Right Kidney: Cortical thinning 1.2cm stone seen lower pole. IMPRESSION: Shadowing in the right upper quadrant at the gallbladder fossa consistent with gallstone. Distal comm on bile duct not well visualized. Right kidney shows no hydronephrosis. No discrete liver mass. It is not clear if the gallbladder is present or not. There is no sign of ascites.
[2020-06-17] MEDS ORDERED: ONDANSETRON 4 MG/2 ML VIAL IVP PRN (22:16)
[2020-06-17] MEDS ORDERED: NALOXONE 0.4 MG/ML 1 ML VIAL IV PRN (22:16)
[2020-06-17] MEDS: MORPHINE SULFATE 4 MG/ML SYRINGE IV PRN (22:27)
[2020-06-17] MEDS: SODIUM CHLORIDE 0.9% 1,000 ML IV SCH (22:27)
[2020-06-17] MEDS ORDERED: PIPERACILLIN-TAZOBACTAM 3.375 GM in SODIUM CHLORIDE 0.9% 100 ML IVPB ONE (22:30)
[2020-06-17] MEDS ORDERED: NICOTINE 21MG/24HR PATCH TRANSDERM STA (22:31)
[2020-06-18 05:43] LABS: Calcium 9.1 mg/dL (8.4-10.2); Potassium 3.6 mmol/L (3.5-5.1); Total Bilirubin 5.5 mg/dL (0.2-1.3)
[2020-06-18 05:44] LABS: Albumin 3.4 g/dL (3.5-5.0); Total Protein 6.5 g/dL (6.3-8.2)
[2020-06-18 05:57] LABS: Basophils % (A) 1 %; Eosinophils # (A) 0.1 k/uL (0-0.7); Eosinophils % (A) 3 %; HCT 42.6 % (34.0-46.0); HGB 13.7 gm/dL (11.4-16.0); Lymphocytes # (A) 1.9 k/uL (1.0-4.8); Lymphocytes % (A) 38 %; MCH 29.1 pg (25.0-35.0); MCHC 32.1 g/dL (31.0-37.0); MCV 90.7 fL (80.0-100.0); Monocytes # (A) 0.3 k/uL (0-1.0); Monocytes % (A) 6 %; Neutrophils # (A) 2.6 k/uL (1.3-7.7); Neutrophils % (A) 52 %; Platelet Count 209 k/uL (150-450); RBC 4.69 m/uL (3.80-5.40); RDW 13.4 % (11.5-15.5)
[2020-06-18 07:22] LABS: Glucose,Whole Blood 85 mg/dL (75-99)
[2020-06-18] MEDS: SODIUM CHLORIDE 0.9% 1,000 ML IV SCH ×2 (08:08→20:44)
--- NOTE | 2020-06-18 11:48 | P.GSHP ---
History of Present Illness H&P Date: 06/18/20 Chief Complaint: Choledocholithiasis 49-year-old female underwent recent cholecystectomy by Dr. Love. Patient returns to the hospital complaining of epigastric and lower chest pain. Patient described the pain as being 10 out of 10. Patient underwent a CAT scan showing CBD dilation with a distal common bile duct stone. Possibly a second stone proximal in the biliary tree. Bilirubin elevated at 7.6, transaminase is elevated as well. White blood cell count was normal. She is afebrile. - Review of Systems Comment: The patient denies any acute changes in vision or hearing, no dysphagia or odynophagia, no chest pain or shortness of breath, no dysuria or hematuria, no headache, no runny nose, no rectal bleeding or melena, no unexplained weight loss Past Medical History Past Medical History: Diabetes Mellitus, GERD/Reflux, Hyperlipidemia, Hypertension, Liver Disease, Pneumonia, Thyroid Disorder Additional Past Medical History / Comment(s): HEAD INJURY/concussion d/t fall at ge 6, kidney stones, thyroid nodules, ddd, no rx for BP, restless leg syndrome, gallstones, fatty liver, History of Any Multi-Drug Resistant Organisms: None Reported Past Surgical History: Section, Joint Replacement, Orthopedic Surgery, Tubal Ligation Additional Past Surgical History / Comment(s): rush. nephrostolithotomy, nephrostomy tubes/later removal, rt hip replacement, hx parathyroid bx, carpel tunnel bilateral Past Anesthesia/Blood Transfusion Reactions: No Reported Reaction Additional Past Anesthesia/Blood Transfusion Reaction / Comment(s): claustrophobia Past Psychological History: Depression Additional Psychological History / Comment(s): claustrophobia Smoking Status: Current some day smoker Past Alcohol Use History: None Reported Additional Past Alcohol Use History / Comment(s): started smoking at age 15 smokes 1 ppd Past Drug Use History: None Reported - Past Family History Father Family Medical History: Coronary Artery Disease (CAD), Diabetes Mellitus Sister(s) Family Medical History: Diabetes Mellitus Mother Family Medical History: Cancer Additional Family Medical History / Comment(s): LUNG Medications and Allergies Home Medications Medication Instructions Recorded Confirmed Type Atorvastatin [Lipitor] 20 mg PO HS 09/16/18 06/17/20 History rOPINIRole HCL [Requip] 1 mg PO HS 09/16/18 06/17/20 History Omeprazole 20 mg PO DAILY 10/22/20 03/20/21 History Semaglutide [Rybelsus] 14 mg PO QAM 04/25/20 06/17/20 History Allergies Allergy/AdvReac Type Severity Reaction Status Date / Time Sulfa (Sulfonamide AdvReac Nausea & Verified 06/17/20 23:07 Antibiotics) Vomiting sulfamethoxazole AdvReac Nausea & Verified 06/17/20 23:07 [From Bactrim] Vomiting trimethoprim [From Bactrim] AdvReac Nausea & Verified 06/17/20 23:07 Vomiting Surgical - Exam Vital Signs Temp Pulse Resp BP Pulse Ox 98 F 92 18 139/86 99 06/17/20 18:03 06/17/20 18:03 06/17/20 18:03 06/17/20 18:03 06/17/20 18:03 Physical exam: General: Well-developed, well-nourished HEENT: Normocephalic, sclerae icteric Abdomen: Mild right upper quadrant tenderness, nondistended Extremities: No edema Neuro: Alert and oriented Results - Labs 06/18/20 04:29 06/18/20 04:29 Abnormal Lab Results - Last 24 Hours (Table) 06/17/20 06/17/20 06/17/20 Range/Units 18:33 19:14 22:39 Chloride (98-107) mmol/L Creatinine 1.51 H (0.52-1.04) mg/dL Total Bilirubin 7.6 H (0.2-1.3) mg/dL AST 376 H (14-36) U/L ALT 318 H (4-34) U/L Alkaline Phosphatase 367 H (38-126) U/L Albumin (3.5-5.0) g/dL Urine Appearance Turbid H (Clear) Urine Protein 2+ H (Negative) Urine Blood Small H (Negative) Urine Bilirubin 2+ H (Negative) Ur Leukocyte Esterase Large H (Negative) Urine RBC 57 H (0-5) /hpf Urine WBC >182 H (0-5) /hpf Urine WBC Clumps Many H (None) /hpf Ur Squamous Epith Cells 10 H (0-4) /hpf Urine Bacteria Many H (None) /hpf Urine Mucus Rare H (None) /hpf Coronavirus (PCR) Detected A (Not Detectd) 06/18/20 Range/Units 04:29 Chloride 109 H (98-107) mmol/L Creatinine 1.32 H (0.52-1.04) mg/dL Total Bilirubin 5.5 H (0.2-1.3) mg/dL AST 265 H (14-36) U/L ALT 257 H (4-34) U/L Alkaline Phosphatase 282 H (38-126) U/L Albumin 3.4 L (3.5-5.0) g/dL Urine Appearance (Clear) Urine Protein (Negative) Urine Blood (Negative) Urine Bilirubin (Negative) Ur Leukocyte Esterase (Negative) Urine RBC (0-5) /hpf Urine WBC (0-5) /hpf Urine WBC Clumps (None) /hpf Ur Squamous Epith Cells (0-4) /hpf Urine Bacteria (None) /hpf Urine Mucus (None) /hpf Coronavirus (PCR) (Not Detectd) Microbiology - Last 24 Hours (Table) 06/17/20 18:33 Urine Culture - Preliminary Urine,Voided Diabetes panel 06/17/20 06/18/20 Range/Units 19:14 04:29 Sodium 139 141 (137-145) mmol/L Potassium 4.1 3.6 (3.5-5.1) mmol/L Chloride 106 109 H (98-107) mmol/L Carbon Dioxide 23 23 (22-30) mmol/L BUN 14 12 (7-17) mg/dL Creatinine 1.51 H 1.32 H (0.52-1.04) mg/dL Glucose 99 78 (74-99) mg/dL Calcium 10.0 9.1 (8.4-10.2) mg/dL AST 376 H 265 H (14-36) U/L ALT 318 H 257 H (4-34) U/L Alkaline Phosphatase 367 H 282 H (38-126) U/L Total Protein 8.2 6.5 (6.3-8.2) g/dL Albumin 4.5 3.4 L (3.5-5.0) g/dL Calcium panel 06/17/20 06/18/20 Range/Units 19:14 04:29 Calcium 10.0 9.1 (8.4-10.2) mg/dL Albumin 4.5 3.4 L (3.5-5.0) g/dL Pituitary panel 06/17/20 06/18/20 Range/Units 19:14 04:29 Sodium 139 141 (137-145) mmol/L Potassium 4.1 3.6 (3.5-5.1) mmol/L Chloride 106 109 H (98-107) mmol/L Carbon Dioxide 23 23 (22-30) mmol/L BUN 14 12 (7-17) mg/dL Creatinine 1.51 H 1.32 H (0.52-1.04) mg/dL Glucose 99 78 (74-99) mg/dL Calcium 10.0 9.1 (8.4-10.2) mg/dL Adrenal panel 06/17/20 06/18/20 Range/Units 19:14 04:29 Sodium 139 141 (137-145) mmol/L Potassium 4.1 3.6 (3.5-5.1) mmol/L Chloride 106 109 H (98-107) mmol/L Carbon Dioxide 23 23 (22-30) mmol/L BUN 14 12 (7-17) mg/dL Creatinine 1.51 H 1.32 H (0.52-1.04) mg/dL Glucose 99 78 (74-99) mg/dL Calcium 10.0 9.1 (8.4-10.2) mg/dL Total Bilirubin 7.6 H 5.5 H (0.2-1.3) mg/dL AST 376 H 265 H (14-36) U/L ALT 318 H 257 H (4-34) U/L Alkaline Phosphatase 367 H 282 H (38-126) U/L Total Protein 8.2 6.5 (6.3-8.2) g/dL Albumin 4.5 3.4 L (3.5-5.0) g/dL Assessment and Plan (1) Choledocholithiasis Narrative/Plan: 49-year-old female with choledocholithiasis. Continue antibiotics empirically. Patient will require ERCP with stone removal. We'll notify Dr. Love of this admission. Patient incidentally found to have Covid positive serology. 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 Denies shortness of breath. Continue isolation. Current Visit: Yes Status: Acute Code(s): K80.50 - CALCULUS OF BILE DUCT W/O CHOLANGITIS OR CHOLECYST W/O OBST SNOMED Code(s): 773213434
[2020-06-18 12:00] LABS: Glucose,Whole Blood 83 mg/dL (75-99)
[2020-06-18] MEDS: PIPERACILLIN-TAZOBACTAM 3.375 GM in SODIUM CHLORIDE 0.9% 100 ML IVPB SCH (15:50)
[2020-06-18 16:35] LABS: Glucose,Whole Blood 119 mg/dL (75-99)
[2020-06-18] MEDS: MORPHINE SULFATE 4 MG/ML SYRINGE IV PRN (16:35)
--- NOTE | 2020-06-18 19:24 | CONS ---
CONSULTATION DATE OF SERVICE: 06/18/2020 REQUESTING PHYSICIAN: Dr. Love. REASON FOR CONSULTATION: Abdominal pain, elevated LFTs. HISTORY OF PRESENT ILLNESS: The patient is a 49-year-old pleasant white female who underwent cholecystectomy in March of this year for symptomatic gallstones by Dr. Love. She came to the emergency room yesterday complaining of severe epigastric pain for the last 2 days duration. The pain continued to progressively get worse associated with some nausea but no emesis. She came to the ER and was noted to have elevated LFTs with bilirubin of 7.6 and elevated serum transaminases. CT of the abdomen and pelvis done showed dilated CBD with distal common bile duct stone and hence we are consulted for an ERCP. The patient is feeling better this morning. She reports no fever, chills, or night sweats. She was also noted to have COVID positive in the ER. She works in the [employer] in a [employer]. PAST MEDICAL HISTORY: Diabetes mellitus, hypertension, hyperlipidemia, hypothyroidism. PAST SURGICAL HISTORY: Cholecystectomy, , tubal ligation, nephrostomy tubes, carpal tunnel release, right hip replacement. SOCIAL HISTORY: Chronic smoker. No alcohol use. FAMILY HISTORY: Unremarkable. MEDICATIONS: Medications at home Lipitor, Requip, omeprazole, and . ALLERGIES: SULFA, BACTRIM. FAMILY HISTORY: Father with coronary artery disease. Sister, diabetes mellitus. Mother has lung cancer. REVIEW OF SYSTEMS: CARDIOPULMONARY: No chest pain or shortness of breath. GENITOURINARY: No dysuria or hematuria. MUSCULOSKELETAL: Unremarkable. SKIN: Unremarkable. ENDOCRINE: Unremarkable. PSYCHIATRIC: Unremarkable. NEUROLOGY: Unremarkable. ENT/VISION: Unremarkable. CONSTITUTIONAL: No recent weight loss. No fever, chills, night sweats. PHYSICAL EXAMINATION: GENERAL: She appears comfortable. No apparent distress. VITAL SIGNS: Stable. Blood pressure 133/89, pulse rate 92 per minute, afebrile. HEENT: Examination unremarkable. Conjunctivae are pink. Sclerae anicteric. Oral cavity no lesions. NECK: No lymph node enlargement. CHEST: Clear to auscultation. HEART: Regular rate and rhythm. ABDOMEN: Soft, bowel sounds are positive. No organomegaly. EXTREMITIES: No pedal edema. SKIN: No rashes. NEURO: She is alert and oriented x3. No focal deficits. LABS: Labs done at the time of admission to the hospital, CBC showed a WBC of 6,5, hemoglobin 13.7, platelets normal. Basic metabolic panel is within normal limits. T bilirubin 7.6, AST 376, ALT 318, alkaline phosphatase 367. Coronavirus PCR is positive. T bilirubin today is 5.5. IMPRESSION: 1. This lady presented to the hospital with acute onset of severe epigastric pain for the last 2 days duration, status post gallbladder surgery [address] Love for gallstones. CT of the abdomen showed distal common bile duct stone and dilated CBD. Labs showed elevated LFTs with bilirubin of 7.6 and AST and ALT in the range of 300. 2. COVID-19 infection but no pulmonary symptoms. RECOMMENDATIONS: 1. Clear liquid diet. 2. Monitor LFTs closely. 3. I had a lengthy discussion with the patient. I will proceed with an ERCP. She understands risks, benefits and complications of the procedure. Thank you for this consultation. MMODL / IJN: [id number] /
[2020-06-18 19:59] LABS: Glucose,Whole Blood 106 mg/dL (75-99)
[2020-06-18] MEDS: ATORVASTATIN 20 MG TAB PO SCH (20:42)
[2020-06-19] MEDS: ZINC SULFATE 220 MG CAP PO SCH ×2 (01:25→07:52)
[2020-06-19] MEDS: dexAMETHasone 4 MG TAB PO SCH ×2 (01:26→07:53)
[2020-06-19] MEDS: PIPERACILLIN-TAZOBACTAM 3.375 GM in SODIUM CHLORIDE 0.9% 100 ML IVPB SCH ×4 (01:26→23:33)
[2020-06-19] MEDS: SODIUM CHLORIDE 0.9% 1,000 ML IV SCH ×3 (04:17→23:33)
--- NOTE | 2020-06-19 06:08 | CONS ---
CONSULTATION A 49-year-old white female of mine for many years, was admitted to Surgery somehow by mistake for acute right upper quadrant abdominal pain. She had a cholecystectomy 6 months ago. She came in with epigastric pain. She has severe elevated transaminases and bilirubin of 7.6. She also is positive for COVID. CT scan and pelvis are done showing dilated common bile duct with distal common bile duct stone. Consult for ERCP by GI. She works in a longterm and probably caught it there, [facility] home where 4 out of 6 residents have COVID. SOCIAL HISTORY: Chronic smoker. No alcohol. FAMILY HISTORY: Unremarkable. MEDICATIONS: Lipitor, Requip, omeprazole. ALLERGIES: SULFA AND BACTRIM. FAMILY HISTORY: Father coronary artery disease. Sister, diabetes mellitus. Mother with cancer. REVIEW OF SYSTEMS: Fourteen-point review of systems negative except for mentioned in HPI. PHYSICAL EXAM: Well female sitting up in bed. She appears to be in no acute distress. VITAL SIGNS: Blood pressure 130s over 80s. Pulse is 92. She remains afebrile. HEENT: Conjunctivae are pink. Sclerae nonicteric. LUNGS: Clear. HEART: Regular rate and rhythm. ABDOMEN: Soft, nontender. EXTREMITIES: No cyanosis, clubbing, edema. GI: She has some mild tenderness in the right upper quadrant. ASSESSMENT: 1. COVID-19 positive. 2. Chronic obstructive pulmonary disease. 3. Nicotine addiction. 4. Choledocholithiasis. 5. Diabetes mellitus. PLAN: She is on clear liquid diet. She is going to get started on some COVID medicines. She is going to get an ERCP tomorrow. Prognosis guarded. MMODL / IJN: [id number] /
[2020-06-19 06:12] LABS: Basophils % (A) 1 %; Eosinophils % (A) 0 %; HCT 43.4 % (34.0-46.0); HGB 14.3 gm/dL (11.4-16.0); Lymphocytes # (A) 0.6 k/uL (1.0-4.8); Lymphocytes % (A) 12 %; MCH 29.7 pg (25.0-35.0); MCHC 32.9 g/dL (31.0-37.0); MCV 90.3 fL (80.0-100.0); Mean Platelet Volume 7.9; Monocytes # (A) 0.2 k/uL (0-1.0); Monocytes % (A) 3 %; Neutrophils # (A) 4.3 k/uL (1.3-7.7); Neutrophils % (A) 84 %; Platelet Count 211 k/uL (150-450); RDW 13.3 % (11.5-15.5); WBC 5.1 k/uL (3.8-10.6)
[2020-06-19 06:33] LABS: ALT 267 U/L (4-34); AST 269 U/L (14-36); African American GFR (CKD) 62 (>60 ml/min/1.73 sqM); Albumin 3.7 g/dL (3.5-5.0); Albumin/Globulin Ratio 1.1; Alkaline Phosphatase 340 U/L (38-126); Anion Gap 8 mmol/L; Blood Urea Nitrogen 11 mg/dL (7-17); Calcium 9.3 mg/dL (8.4-10.2); Carbon Dioxide 25 mmol/L (22-30); Chloride 105 mmol/L (98-107); Globulin 3.3 g/dL; Glucose 143 mg/dL (74-99); Non-African American GFR(CKD) 53 (>60 ml/min/1.73 sqM); Potassium 4.1 mmol/L (3.5-5.1); Sodium 138 mmol/L (137-145)
[2020-06-19 07:03] LABS: Glucose,Whole Blood 131 mg/dL (75-99)
[2020-06-19] MEDS: NON FORMULARY DRUG (Semaglutide [Rybelsus] 14 MG Tablet) PO SCH (07:38)
[2020-06-19] MEDS: PANTOPRAZOLE 40 MG TABLET PO SCH (07:44)
[2020-06-19] MEDS: MORPHINE SULFATE 4 MG/ML SYRINGE IV PRN (10:56)
[2020-06-19 11:08] LABS: Glucose,Whole Blood 147 mg/dL (75-99)
--- NOTE | 2020-06-19 11:40 | P.PN ---
Subjective Progress Note Date: 06/19/20 CHIEF COMPLAINT: Abdominal pain HISTORY OF PRESENT ILLNESS: 49-year-old female underwent recent cholecystectomy by Dr. Love. Patient returns to the hospital complaining of epigastric and lower chest pain. Patient underwent a CAT scan showing CBD dilation with a distal common bile duct stone. Possibly a second stone proximal in the biliary tree. Bilirubin elevated at 7.6, transaminase is elevated as well. Patient is scheduled for ERCP today with GI service. She did have episode of vomiting last night. She had pain after eating a hair clear liquids in the evening. She is currently afebrile. WBC 5.1 creatinine 1.20 total bili 5 AST to 69 ALT 267 alk phos 340. She is Covid positive PHYSICAL EXAM: VITAL SIGNS: Reviewed. GENERAL: Well-developed in no acute distress. HEENT: No sclera icterus. Extraocular movements grossly intact. Moist buccal mucosa. Head is atraumatic, normocephalic. ABDOMEN: Soft. Nondistended. Mild tenderness in the right upper quadrant NEUROLOGIC: Alert and oriented. Cranial nerves II through XII grossly intact. ASSESSMENT: 1. Choledocholithiasis 2. UTI urine culture grew gram-negative bacilli 3. Recent cholecystectomy 4. Covid positive PLAN: -Patient scheduled for ERCP today -Continue antibiotics -Continue IV fluids -Continue supportive care Physician Rooming House Keeper note has been reviewed by physician. Signing provider agrees with the documented findings, assessment, and plan of care. Objective - Vital Signs Vital signs: Vital Signs Temp 98.3 F 06/19/20 08:00 Pulse 62 06/19/20 08:00 Resp 16 06/19/20 08:00 BP 122/76 06/19/20 08:00 Pulse Ox 95 06/19/20 08:00 Intake & Output 06/18/20 06/19/20 06/19/20 18:59 06:59 18:59 Other: # Voids 3 2 # Bowel Movements 0 - Labs CBC & Chem 7: 06/19/20 05:51 06/19/20 05:51 Labs: Abnormal Lab Results - Last 24 Hours (Table) 06/18/20 06/18/20 06/19/20 Range/Units 16:32 19:58 05:51 Lymphocytes # 0.6 L (1.0-4.8) k/uL Creatinine (0.52-1.04) mg/dL Glucose (74-99) mg/dL POC Glucose (mg/dL) 119 H 106 H (75-99) mg/dL Total Bilirubin (0.2-1.3) mg/dL AST (14-36) U/L ALT (4-34) U/L Alkaline Phosphatase (38-126) U/L 06/19/20 06/19/20 06/19/20 Range/Units 05:51 07:02 11:07 Lymphocytes # (1.0-4.8) k/uL Creatinine 1.20 H (0.52-1.04) mg/dL Glucose 143 H (74-99) mg/dL POC Glucose (mg/dL) 131 H 147 H (75-99) mg/dL Total Bilirubin 5.0 H (0.2-1.3) mg/dL AST 269 H (14-36) U/L ALT 267 H (4-34) U/L Alkaline Phosphatase 340 H (38-126) U/L Microbiology - Last 24 Hours (Table) 06/17/20 18:33 Urine Culture - Preliminary Urine,Voided Gram Neg Bacilli
[2020-06-19] MEDS ORDERED: INDOMETHACIN 50MG SUPPOSITORY RECTAL ONE (13:00)
[2020-06-19] MEDS ORDERED: SUCCINYLCHOLINE CHLORIDE VIAL 200 MG/10 ML VIAL IV ONE (14:15)
[2020-06-19] MEDS ORDERED: PROPOFOL 10 MG/ML 20 ML VIAL IV ONE (14:15)
[2020-06-19] MEDS ORDERED: IV FLUID CONTINUATION 1,000 ML IV ONE (14:15)
[2020-06-19] MEDS ORDERED: IOPAMIDOL-300 50ML BTL MISCELLANE ONE (14:55)
--- NOTE | 2020-06-19 15:34 | FL ---
Fluoroscopy INDICATION: Pain FINDINGS: Fluoroscopy time: 17 seconds. Images obtained: 3. Initial image may have a small intraduct gallstone. This is not identified on subsequent images. IMPRESSIONS: 1. Documentation of fluoroscopy.
--- NOTE | 2020-06-19 15:36 | P.PCN ---
Date of Procedure: 06/19/20 Description of Procedure: Brief history: Patient is a 49-year-old female who is status post cholecystectomy in 03/2020 for symptomatic gallstones with plan for ERCP for choledocholithiasis. Patient presented back to the ER with complaints of worsening epigastric pain. Found to have elevation in her liver enzymes with a total bilirubin of 7.6. Computed tomography scan of the abdomen and pelvis showed a dilated common bile duct with a distal common bile duct stone. Procedure performed: ERCP with cholangiogram, sphincterotomy and balloon sweep of the bile duct for choledocholithiasis Preoperative diagnoses: Choledocholithiasis, elevated liver enzymes, dilated common bile duct IV sedation per anesthesia Estimated blood loss: Minimal. Procedure: After informed consent was obtained from the patient and after the risks benefits and complications including bleeding perforation and pancreatitis explained in detail the patient was brought into the endoscopy unit. The patient was placed in prone position and IV conscious sedation was administered by anesthesia under continuous monitoring. The Olympus side-viewing duodenoscope was then inserted into the mouth and esophagus intubated without any difficulty. The scope was gradually advanced into the stomach and duodenum. The major papilla was identified without any difficulty. The diverticula was noted beside the ampulla. Cannulation was performed and dye was injected into the duct after a guidewire was passed into the common bile duct. Cholangiogram was significant for a small distal CBD stone as well as a dilated common bile duct. A 7 mm sphincterotomy was performed. The autotome was then exchanged over the wire for a balloon extractor. This was dilated to 8.5 mm and multiple passes of the duct were performed productive of a small CBD stone. The pancreatic duct was not cannulated or injected. The patient tolerated the procedure well. Impression: Choledocholithiasis. ERCP with cholangiogram, sphincterotomy and balloon sweep of the bile duct. Recommendations: The findings of this examination were discussed with the patient as well as a family. Continue to monitor CBC, BMP and LFTs. Continue to treat symptomatically. Continue to monitor for signs or symptoms of post ERCP pancreatitis. Okay for liquid diet tonight as tolerated.
[2020-06-19 17:10] LABS: Glucose,Whole Blood 184 mg/dL (75-99)
[2020-06-19 20:11] LABS: Glucose,Whole Blood 199 mg/dL (75-99)
[2020-06-19] MEDS: ATORVASTATIN 20 MG TAB PO SCH (21:25)
--- NOTE | 2020-06-19 23:11 | PN ---
PROGRESS NOTE This is a 49-year-old white female, status post ERCP, stone removal. Will check liver enzymes in the morning. Advance her diet. Diabetes mellitus will be steroid taper, Accu-Chek before meals and at bedtime. Continue on current treatment, pain control. Advance diet. Possible discharge home in the morning. MANDA is asymptomatic for her mostly. She is saturating well on room air. COVID-19, status post ERCP with choledochocystitis. Please see further orders. MMODL / IJN: [id number] /
[2020-06-20 02:51] VITALS: RESP 16
[2020-06-20 06:12] LABS: Basophils % (A) 0 %; Eosinophils % (A) 0 %; HGB 13.5 gm/dL (11.4-16.0); Lymphocytes # (A) 1.4 k/uL (1.0-4.8); Lymphocytes % (A) 14 %; MCH 29.8 pg (25.0-35.0); MCHC 32.9 g/dL (31.0-37.0); MCV 90.5 fL (80.0-100.0); Mean Platelet Volume 8.3; Monocytes # (A) 0.5 k/uL (0-1.0); Monocytes % (A) 5 %; Neutrophils # (A) 8.3 k/uL (1.3-7.7); Neutrophils % (A) 80 %; Platelet Count 210 k/uL (150-450); RBC 4.53 m/uL (3.80-5.40); RDW 13.1 % (11.5-15.5); WBC 10.3 k/uL (3.8-10.6)
[2020-06-20 06:24] LABS: ALT 225 U/L (4-34); AST 172 U/L (14-36); African American GFR (CKD) 47 (>60 ml/min/1.73 sqM); Albumin 3.3 g/dL (3.5-5.0); Albumin/Globulin Ratio 1.1; Alkaline Phosphatase 268 U/L (38-126); Anion Gap 7 mmol/L; Blood Urea Nitrogen 16 mg/dL (7-17); Carbon Dioxide 28 mmol/L (22-30); Chloride 104 mmol/L (98-107); Globulin 3.1 g/dL; Glucose 164 mg/dL (74-99); Lipase 241 U/L (23-300); Non-African American GFR(CKD) 41 (>60 ml/min/1.73 sqM); Potassium 3.8 mmol/L (3.5-5.1); Sodium 139 mmol/L (137-145); Total Bilirubin 1.8 mg/dL (0.2-1.3); Total Protein 6.4 g/dL (6.3-8.2)
[2020-06-20 07:35] LABS: Glucose,Whole Blood 172 mg/dL (75-99)
[2020-06-20 07:56] VITALS: BP 117/71; PULSE 64; TEMP 98
[2020-06-20] MEDS: PANTOPRAZOLE 40 MG TABLET PO SCH (08:23)
[2020-06-20] MEDS: INSULIN ASPART (NovoLOG) 100 UNIT/ML VIAL SQ SCH ×2 (08:23→12:58)
[2020-06-20] MEDS: NON FORMULARY DRUG (Semaglutide [Rybelsus] 14 MG Tablet) PO SCH (08:24)
[2020-06-20] MEDS: PIPERACILLIN-TAZOBACTAM 3.375 GM in SODIUM CHLORIDE 0.9% 100 ML IVPB SCH (08:24)
[2020-06-20] MEDS: ZINC SULFATE 220 MG CAP PO SCH (08:24)
[2020-06-20] MEDS: dexAMETHasone 4 MG TAB PO SCH (08:24)
[2020-06-20] MEDS ORDERED: ENOXAPARIN 40 MG/0.4 ML SYRINGE SQ SCH (09:00)
[2020-06-20] MEDS: SODIUM CHLORIDE 0.9% 1,000 ML IV SCH (10:47)
[2020-06-20 11:39] LABS: Glucose,Whole Blood 146 mg/dL (75-99)
--- NOTE | 2020-06-20 11:41 | P.PN ---
Subjective Progress Note Date: 06/20/20 CHIEF COMPLAINT: Abdominal pain HISTORY OF PRESENT ILLNESS: 49-year-old female underwent recent cholecystectomy by Dr. Love. Patient returns to the hospital complaining of epigastric and lower chest pain. Patient underwent a CAT scan showing CBD dilation with a distal common bile duct stone. Possibly a second stone proximal in the biliary tree. Patient is status post ERCP with removal a small common bile duct stone. Patient reports she is feeling better. She denies any abdominal pain. She t olerated diet. She is having bowel movements. She is up and ambulating. She reports that her urine is clear in color. She's afebrile. WBC is 10.3 total bilirubin is down from 5-1.8 and LFTs are trending downwards. She is anticipating discharge later today. PHYSICAL EXAM: VITAL SIGNS: Reviewed. GENERAL: Well-developed in no acute distress. HEENT: No sclera icterus. Extraocular movements grossly intact. Moist buccal mucosa. Head is atraumatic, normocephalic. ABDOMEN: Soft. Nondistended. Nontender NEUROLOGIC: Alert and oriented. Cranial nerves II through XII grossly intact. ASSESSMENT: 1. Choledocholithiasis status post ERCP with removal of small common bile duct stone 2. UTI 3. Recent cholecystectomy 4. Covid positive PLAN: -Continue supportive care -Antibiotics per medicine service for UTI -Patient can be discharge from surgical standpoint Physician Sand Cutter note has been reviewed by physician. Signing provider agrees with the documented findings, assessment, and plan of care. Objective - Vital Signs Vital signs: Vital Signs Temp 98.0 F 06/20/20 07:55 Pulse 64 06/20/20 07:55 Resp 16 06/20/20 07:55 BP 117/71 06/20/20 07:55 Pulse Ox 100 06/20/20 07:55 Intake & Output 06/19/20 06/20/20 06/20/20 18:59 06:59 18:59 Other: Voiding Method Toilet # Voids 1 - Labs CBC & Chem 7: 06/20/20 05:02 06/20/20 05:02 Labs: Abnormal Lab Results - Last 24 Hours (Table) 06/19/20 06/19/20 06/20/20 Range/Units 17:09 20:09 05:02 Neutrophils # 8.3 H (1.3-7.7) k/uL Creatinine (0.52-1.04) mg/dL Glucose (74-99) mg/dL POC Glucose (mg/dL) 184 H 199 H (75-99) mg/dL Total Bilirubin (0.2-1.3) mg/dL AST (14-36) U/L ALT (4-34) U/L Alkaline Phosphatase (38-126) U/L Albumin (3.5-5.0) g/dL 06/20/20 06/20/20 Range/Units 05:02 07:32 Neutrophils # (1.3-7.7) k/uL Creatinine 1.50 H (0.52-1.04) mg/dL Glucose 164 H (74-99) mg/dL POC Glucose (mg/dL) 172 H (75-99) mg/dL Total Bilirubin 1.8 H (0.2-1.3) mg/dL AST 172 H (14-36) U/L ALT 225 H (4-34) U/L Alkaline Phosphatase 268 H (38-126) U/L Albumin 3.3 L (3.5-5.0) g/dL Microbiology - Last 24 Hours (Table) 06/17/20 18:33 Urine Culture - Final Urine,Voided Escherichia coli
[2020-06-20] MEDS ORDERED: CIPROFLOXACIN HCL 500 MG TAB PO SCH (21:00)
== END 2020-06-20 13:40 | disposition home or self-care (01) | DRG 444 ==
LOC: EC 17:57 → 6NMEDSUR 22:18
PROVIDERS: ADMIT Family Medicine; ATTEND Family Medicine
PROC: 0F798ZZ Dilation of Common Bile Duct, Via Natural or Artificial Opening Endoscopic (ICD-10-PCS; principal; 2020-06-19 10:50)
DX: K80.30 Calculus of bile duct with cholangitis, unspecified, without obstruction (principal); U07.1 COVID-19; N39.0 Urinary tract infection, site not specified; K76.0 Fatty (change of) liver, not elsewhere classified; E11.9 Type 2 diabetes mellitus without complications; J44.9 Chronic obstructive pulmonary disease, unspecified; K22.5 Diverticulum of esophagus, acquired; E03.9 Hypothyroidism, unspecified; E78.5 Hyperlipidemia, unspecified; I10 Essential (primary) hypertension; G25.81 Restless legs syndrome; K21.9 Gastro-esophageal reflux disease without esophagitis; K76.9 Liver disease, unspecified; F17.210 Nicotine dependence, cigarettes, uncomplicated; Z71.6 Tobacco abuse counseling; Z79.84 Long term (current) use of oral hypoglycemic drugs; Z79.899 Other long term (current) drug therapy; Z87.820 Personal history of traumatic brain injury; Z87.442 Personal history of urinary calculi; Z90.49 Acquired absence of other specified parts of digestive tract; Z87.19 Personal history of other diseases of the digestive system; Z98.891 History of uterine scar from previous surgery; Z98.51 Tubal ligation status; Z96.641 Presence of right artificial hip joint; Z86.59 Personal history of other mental and behavioral disorders; Z87.01 Personal history of pneumonia (recurrent); Z98.890 Other specified postprocedural states; Z88.2 Allergy status to sulfonamides; Z83.3 Family history of diabetes mellitus; Z82.49 Family history of ischemic heart disease and other diseases of the circulatory system; Z80.1 Family history of malignant neoplasm of trachea, bronchus and lung
CPT/HCPCS: 36415; 43262; 43264; 74176; 74328; 76705; 80053; 81001; 81025; 82150; 83690; 85025; 87077; 87086; 87186; 87635; 94760; 96365; 96367; 96372; 96375; 96376; 99284

== ENCOUNTER → 2020-10-31 | Outpatient (CLI) | payer BC ==
[2020-10-31 13:38] LABS: Hemoglobin A1C 7.2 % (4.0-6.0)
[2020-10-31 14:51] LABS: African American GFR (CKD) 50.6 (60.0-200.0); Anion Gap 8.5 mmol/L (4.00-12.00); Carbon Dioxide 25.5 mmol/L (21.6-31.8); Chol/HDL Ratio 6.35; Non-African American GFR(CKD) 43.7 (60.0-200.0); Potassium 4.1 mmol/L (3.5-5.5)
[2020-10-31 19:34] LABS: Urine Creatinine 80.6 mg/dL
== END | disposition home or self-care (01) ==
LOC: LABWHC1 08:05
PROVIDERS: ATTEND Family Medicine
DX: E11.9 Type 2 diabetes mellitus without complications (principal); I10 Essential (primary) hypertension
CPT/HCPCS: 36415; 80051; 80061; 82043; 82565; 82570; 83036; 83721; 84443; 84520

== ENCOUNTER 2020-11-23 17:11 | Inpatient (IN) | payer BC ==
[2020-11-23] MEDS ORDERED: KETOROLAC 15 MG/ML 1 ML VIAL IVP STA (18:16)
[2020-11-23] MEDS ORDERED: SODIUM CHLORIDE 0.9% 1,000 ML IV STA (18:16)
[2020-11-23 18:56] LABS: Basophils # (A) 0.1 k/uL (0-0.2); Basophils % (A) 0 %; Eosinophils # (A) 0.1 k/uL (0-0.7); Eosinophils % (A) 1 %; HCT 38.3 % (34.0-46.0); HGB 13.2 gm/dL (11.4-16.0); Lymphocytes # (A) 1.5 k/uL (1.0-4.8); Lymphocytes % (A) 10 %; MCHC 34.4 g/dL (31.0-37.0); MCV 90.2 fL (80.0-100.0); Mean Platelet Volume 8.6; Monocytes # (A) 0.9 k/uL (0-1.0); Monocytes % (A) 7 %; Neutrophils # (A) 11.6 k/uL (1.3-7.7); Neutrophils % (A) 80 %; Platelet Count 223 k/uL (150-450); RBC 4.25 m/uL (3.80-5.40); RDW 13.1 % (11.5-15.5); WBC 14.4 k/uL (3.8-10.6)
[2020-11-23 19:02] LABS: Appearance,Urine Cloudy (Clear); Bacteria,Urine Occasional /hpf; Bilirubin,Urine Negative (Negative); Blood,Urine Moderate (Negative); Budding Yeast,Urine Few /hpf; Color,Urine Light Yellow; Glucose,Urine (UA) Negative (Negative); Ketones,Urine Negative (Negative); Leukocyte Esterase,Urine Large (Negative); Mucus,Urine Rare /hpf; Nitrite,Urine Negative (Negative); PH, Urine 6.5 (5.0-8.0); Protein,Urine 1+ (Negative); RBC,Urine 114 /hpf (0-5); Squamous Epithelial Cell,Urine 13 /hpf (0-4); Urobilinogen,Urine <2.0 mg/dL (<2.0); WBC,Urine 91 /hpf (0-5)
[2020-11-23 19:19] LABS: Albumin 3.5 g/dL (3.5-5.0); Potassium 4.2 mmol/L (3.5-5.1); Total Bilirubin 0.6 mg/dL (0.2-1.3); Total Protein 6.5 g/dL (6.3-8.2)
[2020-11-23] MEDS ORDERED: cefTRIAXone IN SWFI 1,000 MG/10 ML SYRINGE IVP STA (19:44)
--- NOTE | 2020-11-23 20:46 | CT ---
EXAMINATION TYPE: CT abdomen pelvis wo con DATE OF EXAM: 11/23/2020 COMPARISON: 06/17/2020 HISTORY: 50 year-old female RT side flank/abdomen pain CT DLP: 1112.2 mGycm. Automated exposure control for dose reduction was used. TECHNIQUE: Contiguous axial scanning of the abdomen and pelvis without IV contrast. Coronal and sagit khadra reconstructions performed. FINDINGS: Heart normal size without pericardial effusion. Underlying emphysematous change and probable small ai rways disease with mosaic attenuation. No pleural effusion. Liver shows diffuse low attenuation compatible with fatty infiltration. Interval clearance of the pre vious choledocholithiasis. There is pneumobilia compatible with prior sphincterotomy. Adrenal glands and pancreas show no gross abnormality by noncontrast CT. Spleen enlarged measuring 14.7 cm. Interval enlargement of the central mid abdominal lymph node measuring 2.5 x 1.9 cm now versus 1.6 x 0.8 cm, previously. Portacaval lymph node mildly enlarged at 1.5 cm. Enlarged aortocaval lymph nodes measuring up to 2.1 x 1.1 cm. The left kidney is atrophic. Right-sided nephrolithiasis with approximately 5 calculi measuring up to 1.2 cm. There is now severe hydronephrosis and hydroureter with the 1.3 cm calculus passed into the distal right ureter. Addition al smaller calculi are present just adjacent measuring up to 4 and 5 mm. Extensive perinephric strand ing and edema. No dilated small bowel, free fluid, or free air. Normal appendix. Mild stool burden. No pericolonic inflammatory change. Bladder nondistended. Uterus anteverted. Both ovaries are visualized. No abnormal fluid collection in the pelvis or pelvic lymphadenopathy. Bones: Right hip total arthroplasty. Mild to moderate degenerative change left hip. Left L5 hemisacra lization. Large disc osteophyte complex and L4-L5 causing a severe focal spinal canal stenosis. IMPRESSION: 1. The patient's 1.3 cm calculus has passed from the collecting system now into the distal right ure ter. There is resultant severe right-sided hydronephrosis and hydroureter with marked reactive perine phric edema. Other nonobstructive right renal calculi measure up to 1.2 cm. 2. Urologic intervention is recommended given that the patient's primary kidney function is probably supplied by the right kidney given that the left kidney is atrophic. 3. Hepatic steatosis. Splenomegaly 14.7 cm. Pneumobilia likely secondary to prior sphincterotomy. 4. Incidental large disc osteophyte complex at L4-L5 which may cause a severe focal spinal canal mary nosis.
--- NOTE | 2020-11-23 20:56 | ED ---
Abdominal Pain HPI - General Chief Complaint: Abdominal Pain Stated Complaint: RLQ Pain, RT Kindey pain, lower back pain Time Seen by Provider: 11/23/20 17:35 Source: patient Mode of arrival: ambulatory Limitations: no limitations - History of Present Illness Initial Comments: Patient is a 50-year-old female with past medical history of diabetes, hypert ension, kidney stones who presents to the emergency room with reported right- sided flank pain. States that the pain started a couple of days ago. She saw her primary care doctor yesterday. UA was completed and the patient was started on tramadol as well as an antibiotic for which she does not know the name of. Patient continues to have pain and states the tramadol isn't helping at all. She does have a previous history of kidney stones that have required surgery. She denies any fevers or chills. Admits to nausea without vomiting. Denies any changes in her bladder habits to include dysuria, hematuria or difficulty voiding. Denies black or bloody stools. No concern for . Denies vaginal bleeding or discharge, No other alleviating, precipitating or modifying factors - Related Data Home Medications Medication Instructions Recorded Confirmed Atorvastatin [Lipitor] 20 mg PO HS 09/16/18 11/23/20 rOPINIRole HCL [Requip] 1 mg PO HS 09/16/18 11/23/20 Escitalopram [Lexapro] 10 mg PO DAILY 11/23/20 11/23/20 Omeprazole Magnesium [PriLOSEC OTC] 20 mg PO DAILY 11/23/20 11/23/20 Ondansetron [Zofran ODT] 4 mg PO Q4H PRN 11/23/20 11/23/20 Phentermine HCl [Adipex-P] 37.5 mg PO DAILY 11/23/20 11/23/20 lisinopriL 10 mg PO DAILY 11/23/20 11/23/20 traMADol HCL 50 mg PO BID PRN 11/23/20 11/23/20 Semaglutide [Rybelsus] 14 mg PO DAILY 11/24/20 11/24/20 Previous Rx's Medication Instructions Recorded Ciprofloxacin HCl [Cipro] 500 mg PO BID 7 Days #14 tab 06/20/20 Allergies Allergy/AdvReac Type Severity Reaction Status Date / Time Sulfa (Sulfonamide AdvReac Nausea & Verified 11/24/20 12:54 Antibiotics) Vomiting sulfamethoxazole AdvReac Nausea & Verified 11/24/20 12:54 [From Bactrim] Vomiting trimethoprim [From Bactrim] AdvReac Nausea & Verified 11/24/20 12:54 Vomiting Review of Systems ROS Statement: Those systems with pertinent positive or pertinent negative responses have been documented in the HPI. ROS Other: All systems not noted in ROS Statement are negative. Past Medical History Past Medical History: Diabetes Mellitus, GERD/Reflux, Hyperlipidemia, Hypertension, Liver Disease, Pneumonia, Thyroid Disorder Additional Past Medical History / Comment(s): HEAD INJURY/concussion d/t fall at ge 6, kidney stones, thyroid nodules, ddd, no rx for BP, restless leg syndrome, gallstones, fatty liver, History of Any Multi-Drug Resistant Organisms: None Reported Past Surgical History: Section, Joint Replacement, Orthopedic Surgery, Tubal Ligation Additional Past Surgical History / Comment(s): rush. nephrostolithotomy, nephrostomy tubes/later removal, rt hip replacement, hx parathyroid bx, carpel tunnel bilateral Past Anesthesia/Blood Transfusion Reactions: No Reported Reaction Additional Past Anesthesia/Blood Transfusion Reaction / Comment(s): claustrophobia Past Psychological History: Depression Smoking Status: Current some day smoker Past Alcohol Use History: None Reported Past Drug Use History: None Reported - Past Family History Father Family Medical History: Coronary Artery Disease (CAD), Diabetes Mellitus Sister(s) Family Medical History: Diabetes Mellitus Mother Family Medical History: Cancer Additional Family Medical History / Comment(s): LUNG General Exam Limitations: no limitations General appearance: alert, in no apparent distress Head exam: Present: atraumatic, normocephalic, normal inspection Eye exam: Present: normal appearance, PERRL, EOMI. Absent: scleral icterus, conjunctival injection, periorbital swelling ENT exam: Present: normal exam, mucous membranes moist Neck exam: Present: normal inspection. Absent: tenderness, meningismus, lymphadenopathy Respiratory exam: Present: normal lung sounds bilaterally. Absent: respiratory distress, wheezes, rales, rhonchi, stridor Cardiovascular Exam: Present: regular rate, normal rhythm, normal heart sounds. Absent: systolic murmur, diastolic murmur, rubs, gallop, clicks GI/Abdominal exam: Present: soft, normal bowel sounds. Absent: distended, tenderness, guarding, rebound, rigid Extremities exam: Present: normal inspection, full ROM, normal capillary refill. Absent: tenderness, pedal edema, joint swelling, calf tenderness Back exam: Present: CVA tenderness (R) Neurological exam: Present: alert, oriented X3, CN II-XII intact Psychiatric exam: Present: normal affect, normal mood Skin exam: Present: warm, dry, intact, normal color. Absent: rash Course Vital Signs 11/23/20 11/23/20 17:21 21:55 Temperature 97.9 F 98.5 F Pulse Rate 109 H Pulse Rate [ 100 Pulse Oximetery ] Respiratory 18 17 Rate Blood Pressure 127/80 Blood Pressure 132/83 [Right Arm] O2 Sat by Pulse 98 97 Oximetry Medical Decision Making - Medical Decision Making Upon arrival the patient is placed into room 25. Thorough history and physical exam is performed. IV is established. Patient is given a dose of Toradol and a liter bolus of normal saline. Laboratory studies are conducted which demonstrated white count of 14.4. Creatinine elevated at 5.6. Urinalysis demonstrates few with blood cell clumps, occasional bacteria. She is sent for a CT without contrast due to her elevated kidney function at this time which demonstrates a 1.3 cm calculus in the distal right ureter. There is severe right-sided hydronephrosis and hydroureter. I called and spoke with Dr. Gomes because of the results. Patient was made nothing by mouth for surgery tomorrow. Patient will be admitted to Dr. Chávez who agreed to admit the patient. Pain medications, antibiotics and anti-nausea medications ordered for the floor. Patient is currently awaiting a bed in stable condition. Patient placed on 3S due to concern that she could decompensate to a septic stone. - Lab Data Result diagrams: 11/24/20 07:22 11/24/20 07:22 Lab Results 11/23/20 11/23/20 11/23/20 Range/Units 18:42 18:42 18:42 WBC 14.4 H (3.8-10.6) k/uL RBC 4.25 (3.80-5.40) m/uL Hgb 13.2 (11.4-16.0) gm/dL Hct 38.3 (34.0-46.0) % MCV 90.2 (80.0-100.0) fL MCH 31.0 (25.0-35.0) pg MCHC 34.4 (31.0-37.0) g/dL RDW 13.1 (11.5-15.5) % Plt Count 223 (150-450) k/uL MPV 8.6 Neutrophils % 80 % Lymphocytes % 10 % Monocytes % 7 % Eosinophils % 1 % Basophils % 0 % Neutrophils # 11.6 H (1.3-7.7) k/uL Lymphocytes # 1.5 (1.0-4.8) k/uL Monocytes # 0.9 (0-1.0) k/uL Eosinophils # 0.1 (0-0.7) k/uL Basophils # 0.1 (0-0.2) k/uL Sodium (137-145) mmol/L Potassium (3.5-5.1) mmol/L Chloride (98-107) mmol/L Carbon Dioxide (22-30) mmol/L Anion Gap mmol/L BUN (7-17) mg/dL Creatinine (0.52-1.04) mg/dL Est GFR (CKD-EPI)AfAm (>60 ml/min/1.73 sqM) Est GFR (CKD-EPI)NonAf (>60 ml/min/1.73 sqM) Glucose (74-99) mg/dL Plasma Lactic Acid Col[place] (0.7-2.0) mmol/L Calcium (8.4-10.2) mg/dL Total Bilirubin (0.2-1.3) mg/dL AST (14-36) U/L ALT (4-34) U/L Alkaline Phosphatase (38-126) U/L Total Protein (6.3-8.2) g/dL Albumin (3.5-5.0) g/dL Lipase (23-300) U/L Urine Color Light Yellow Urine Appearance Cloudy H (Clear) Urine pH 6.5 (5.0-8.0) Ur Specific [place] 1.010 (1.001-1.035) Urine Protein 1+ H (Negative) Urine Glucose (UA) Negative (Negative) Urine Ketones Negative (Negative) Urine Blood Moderate H (Negative) Urine Nitrite Negative (Negative) Urine Bilirubin Negative (Negative) Urine Urobilinogen <2.0 (<2.0) mg/dL Ur Leukocyte Esterase Large H (Negative) Urine RBC 114 H (0-5) /hpf Urine WBC 91 H (0-5) /hpf Urine WBC Clumps Few H (None) /hpf Ur Squamous Epith Cells 13 H (0-4) /hpf Urine Bacteria Occasional H (None) /hpf Urine Mucus Rare H (None) /hpf Urine Yeast (Budding) Few H (None) /hpf Urine HCG, Qual Not Detected (Not Detectd) 11/23/20 11/23/20 Range/Units 18:42 18:42 WBC (3.8-10.6) k/uL RBC (3.80-5.40) m/uL Hgb (11.4-16.0) gm/dL Hct (34.0-46.0) % MCV (80.0-100.0) fL MCH (25.0-35.0) pg MCHC (31.0-37.0) g/dL RDW (11.5-15.5) % Plt Count (150-450) k/uL MPV Neutrophils % % Lymphocytes % % Monocytes % % Eosinophils % % Basophils % % Neutrophils # (1.3-7.7) k/uL Lymphocytes # (1.0-4.8) k/uL Monocytes # (0-1.0) k/uL Eosinophils # (0-0.7) k/uL Basophils # (0-0.2) k/uL Sodium 133 L (137-145) mmol/L Potassium 4.2 (3.5-5.1) mmol/L Chloride 104 (98-107) mmol/L Carbon Dioxide 20 L (22-30) mmol/L Anion Gap 9 mmol/L BUN 40 H (7-17) mg/dL Creatinine 5.60 H (0.52-1.04) mg/dL Est GFR (CKD-EPI)AfAm 9 (>60 ml/min/1.73 sqM) Est GFR (CKD-EPI)NonAf 8 (>60 ml/min/1.73 sqM) Glucose 163 H (74-99) mg/dL Plasma Lactic Acid Colton 0.9 (0.7-2.0) mmol/L Calcium 9.0 (8.4-10.2) mg/dL Total Bilirubin 0.6 (0.2-1.3) mg/dL AST 16 (14-36) U/L ALT 11 (4-34) U/L Alkaline Phosphatase 150 H (38-126) U/L Total Protein 6.5 (6.3-8.2) g/dL Albumin 3.5 (3.5-5.0) g/dL Lipase 58 (23-300) U/L Urine Color Urine Appearance (Clear) Urine pH (5.0-8.0) Ur Specific [place] (1.001-1.035) Urine Protein (Negative) Urine Glucose (UA) (Negative) Urine Ketones (Negative) Urine Blood (Negative) Urine Nitrite (Negative) Urine Bilirubin (Negative) Urine Urobilinogen (<2.0) mg/dL Ur Leukocyte Esterase (Negative) Urine RBC (0-5) /hpf Urine WBC (0-5) /hpf Urine WBC Clumps (None) /hpf Ur Squamous Epith Cells (0-4) /hpf Urine Bacteria (None) /hpf Urine Mucus (None) /hpf Urine Yeast (Budding) (None) /hpf Urine HCG, Qual (Not Detectd) Disposition Clinical Impression: UTI (urinary tract infection), Ureteral stone with hydronephrosis, ROCCO (acute kidney injury) Disposition: ADMITTED IP TO THIS [facility] Condition: Serious Is patient prescribed a controlled substance at d/c from ED?: No Decision to Admit Reason: Admit from EC Decision Date: 11/23/20 Decision Time: 20:56
[2020-11-23] MEDS ORDERED: NALOXONE 0.4 MG/ML 1 ML VIAL IV PRN (21:06)
[2020-11-23] MEDS ORDERED: HYDROmorphone 1 MG/ML 1 ML SYRINGE IVP PRN (21:06)
[2020-11-23] MEDS ORDERED: ONDANSETRON 4 MG/2 ML VIAL IVP PRN (21:06)
[2020-11-23] MEDS ORDERED: HYDROcodone/APAP 5-325MG 1 EACH TAB PO PRN (21:06)
[2020-11-23 22:17] LABS: Glucose,Whole Blood 125 mg/dL (75-99)
[2020-11-24] MEDS: SODIUM CHLORIDE 0.9% 1,000 ML IV SCH ×3 (05:59→17:49)
[2020-11-24] MEDS: PANTOPRAZOLE 40 MG TABLET PO SCH (06:00)
[2020-11-24 06:12] LABS: Glucose,Whole Blood 163 mg/dL (75-99)
[2020-11-24 07:43] LABS: Basophils # (A) 0.1 k/uL (0-0.2); Basophils % (A) 0 %; Eosinophils # (A) 0.2 k/uL (0-0.7); Eosinophils % (A) 2 %; HCT 36.6 % (34.0-46.0); HGB 11.8 gm/dL (11.4-16.0); Lymphocytes # (A) 1.2 k/uL (1.0-4.8); Lymphocytes % (A) 10 %; MCH 30.1 pg (25.0-35.0); MCHC 32.3 g/dL (31.0-37.0); Mean Platelet Volume 8.5; Monocytes # (A) 0.7 k/uL (0-1.0); Monocytes % (A) 6 %; Neutrophils # (A) 9.2 k/uL (1.3-7.7); Neutrophils % (A) 80 %; Platelet Count 224 k/uL (150-450); RBC 3.94 m/uL (3.80-5.40); RDW 12.7 % (11.5-15.5); WBC 11.6 k/uL (3.8-10.6)
--- NOTE | 2020-11-24 07:56 | P.GSCN ---
History of Present Illness Consult date: 11/24/20 History of present illness: 50 yo female with a history of stones, previous pcnl right in 2016, presents with a several day history of right flankpain. SHe was seen by Dr Chávez and given pain medication and antibiotics. This didnt help. She came to the er with the pain and was found to have a 1.3 cm stone in the distal ureter right with a possible uti. her cr is 5.6 as her left kidney is atrophic. SHe was admitted for pain control and urological consultation. Review of Systems All systems: negative - Constitutional Denies fever, Denies weight loss - EENT Eyes: denies blurred vision Ears, nose, mouth and throat: Denies dysphagia - Cardiovascular Denies chest pain, Denies shortness of breath - Respiratory Denies cough, Denies 7 - Gastrointestinal Reports as per HPI - Genitourinary Genitourinary: Denies dysuria, Denies hematuria - Integumentary Denies rash, Denies unusual bruising - Neurological Denies headaches, Denies syncope - Hematologic/Lymphatic Denies easy bleeding, Denies easy bruising Past Medical History Past Medical History: Diabetes Mellitus, GERD/Reflux, Hyperlipidemia, Hype rtension, Liver Disease, Pneumonia, Thyroid Disorder Additional Past Medical History / Comment(s): HEAD INJURY/concussion d/t fall at ge 6, kidney stones, thyroid nodules, ddd, no rx for BP, restless leg syndrome, gallstones, fatty liver, History of Any Multi-Drug Resistant Organisms: None Reported Past Surgical History: Section, Joint Replacement, Orthopedic Surgery, Tubal Ligation Additional Past Surgical History / Comment(s): rush. nephrostolithotomy, nephrostomy tubes/later removal, rt hip replacement, hx parathyroid bx, carpel tunnel bilateral Past Anesthesia/Blood Transfusion Reactions: No Reported Reaction Additional Past Anesthesia/Blood Transfusion Reaction / Comm: claustrophobia Past Psychological History: Depression Additional Psychological History / Comment(s): claustrophobia Smoking Status: Current some day smoker Past Alcohol Use History: None Reported Additional Past Alcohol Use History / Comment(s): started smoking at age 15 smokes 1 ppd Past Drug Use History: None Reported - Past Family History Father Family Medical History: Coronary Artery Disease (CAD), Diabetes Mellitus Sister(s) Family Medical History: Diabetes Mellitus Mother Family Medical History: Cancer Additional Family Medical History / Comment(s): LUNG Medications and Allergies Home Medications Medication Instructions Recorded Confirmed Type Atorvastatin [Lipitor] 20 mg PO HS 09/16/18 11/23/20 History rOPINIRole HCL [Requip] 1 mg PO HS 09/16/18 11/23/20 History Ciprofloxacin HCl [Cipro] 500 mg PO BID 7 Days #14 tab 06/20/20 11/23/20 Rx Escitalopram [Lexapro] 10 mg PO DAILY 11/23/20 11/23/20 History Omeprazole Magnesium [PriLOSEC OTC] 20 mg PO DAILY 11/23/20 11/23/20 History Ondansetron [Zofran ODT] 4 mg PO Q4H PRN 11/23/20 11/23/20 History Phentermine HCl [Adipex-P] 37.5 mg PO DAILY 11/23/20 11/23/20 History lisinopriL 10 mg PO DAILY 11/23/20 11/23/20 History traMADol HCL 50 mg PO BID PRN 11/23/20 11/23/20 History Allergies Allergy/AdvReac Type Severity Reaction Status Date / Time Sulfa (Sulfonamide AdvReac Nausea & Verified 11/23/20 20:41 Antibiotics) Vomiting sulfamethoxazole AdvReac Nausea & Verified 11/23/20 20:41 [From Bactrim] Vomiting trimethoprim [From Bactrim] AdvReac Nausea & Verified 11/23/20 20:41 Vomiting Surgical - Exam Vital Signs Temp Pulse Resp BP Pulse Ox 97.9 F 109 H 18 127/80 98 11/23/20 17:21 11/23/20 17:21 11/23/20 17:21 11/23/20 17:21 11/23/20 17:21 - General well developed, well nourished, moderate distress, obese - ENT no hearing loss - Neck no masses - Respiratory normal expansion, normal respiratory effort - Cardiovascular Rhythm: regular - Abdomen Abdomen: soft, tender - Neurologic normal sensation - Musculoskeletal normal posture - Psychiatric oriented to time, oriented to person, oriented to place, speech is normal, memory intact Results - Labs 11/24/20 07:22 11/23/20 18:42 Abnormal Lab Results - Last 24 Hours (Table) 11/23/20 11/23/20 11/23/20 Range/Units 18:42 18:42 18:42 WBC 14.4 H (3.8-10.6) k/uL Neutrophils # 11.6 H (1.3-7.7) k/uL Sodium 133 L (137-145) mmol/L Carbon Dioxide 20 L (22-30) mmol/L BUN 40 H (7-17) mg/dL Creatinine 5.60 H (0.52-1.04) mg/dL Glucose 163 H (74-99) mg/dL POC Glucose (mg/dL) (75-99) mg/dL Alkaline Phosphatase 150 H (38-126) U/L Urine Appearance Cloudy H (Clear) Urine Protein 1+ H (Negative) Urine Blood Moderate H (Negative) Ur Leukocyte Esterase Large H (Negative) Urine RBC 114 H (0-5) /hpf Urine WBC 91 H (0-5) /hpf Urine WBC Clumps Few H (None) /hpf Ur Squamous Epith Cells 13 H (0-4) /hpf Urine Bacteria Occasional H (None) /hpf Urine Mucus Rare H (None) /hpf Urine Yeast (Budding) Few H (None) /hpf 11/23/20 Range/Units 22:15 WBC (3.8-10.6) k/uL Neutrophils # (1.3-7.7) k/uL Sodium (137-145) mmol/L Carbon Dioxide (22-30) mmol/L BUN (7-17) mg/dL Creatinine (0.52-1.04) mg/dL Glucose (74-99) mg/dL POC Glucose (mg/dL) 125 H (75-99) mg/dL Alkaline Phosphatase (38-126) U/L Urine Appearance (Clear) Urine Protein (Negative) Urine Blood (Negative) Ur Leukocyte Esterase (Negative) Urine RBC (0-5) /hpf Urine WBC (0-5) /hpf Urine WBC Clumps (None) /hpf Ur Squamous Epith Cells (0-4) /hpf Urine Bacteria (None) /hpf Urine Mucus (None) /hpf Urine Yeast (Budding) (None) /hpf Diabetes panel 11/23/20 Range/Units 18:42 Sodium 133 L (137-145) mmol/L Potassium 4.2 (3.5-5.1) mmol/L Chloride 104 (98-107) mmol/L Carbon Dioxide 20 L (22-30) mmol/L BUN 40 H (7-17) mg/dL Creatinine 5.60 H (0.52-1.04) mg/dL Glucose 163 H (74-99) mg/dL Calcium 9.0 (8.4-10.2) mg/dL AST 16 (14-36) U/L ALT 11 (4-34) U/L Alkaline Phosphatase 150 H (38-126) U/L Total Protein 6.5 (6.3-8.2) g/dL Albumin 3.5 (3.5-5.0) g/dL Calcium panel 11/23/20 Range/Units 18:42 Calcium 9.0 (8.4-10.2) mg/dL Albumin 3.5 (3.5-5.0) g/dL Pituitary panel 11/23/20 Range/Units 18:42 Sodium 133 L (137-145) mmol/L Potassium 4.2 (3.5-5.1) mmol/L Chloride 104 (98-107) mmol/L Carbon Dioxide 20 L (22-30) mmol/L BUN 40 H (7-17) mg/dL Creatinine 5.60 H (0.52-1.04) mg/dL Glucose 163 H (74-99) mg/dL Calcium 9.0 (8.4-10.2) mg/dL Adrenal panel 11/23/20 Range/Units 18:42 Sodium 133 L (137-145) mmol/L Potassium 4.2 (3.5-5.1) mmol/L Chloride 104 (98-107) mmol/L Carbon Dioxide 20 L (22-30) mmol/L BUN 40 H (7-17) mg/dL Creatinine 5.60 H (0.52-1.04) mg/dL Glucose 163 H (74-99) mg/dL Calcium 9.0 (8.4-10.2) mg/dL Total Bilirubin 0.6 (0.2-1.3) mg/dL AST 16 (14-36) U/L ALT 11 (4-34) U/L Alkaline Phosphatase 150 H (38-126) U/L Total Protein 6.5 (6.3-8.2) g/dL Albumin 3.5 (3.5-5.0) g/dL - Imaging CT scan - abdomen: report reviewed, image reviewed CT scan - pelvis: report reviewed, image reviewed Assessment and Plan Assessment: Impression: right ureteral calculous with obstruction, arf due to obstruction in solitary kidney, dm, htn, obesity, possible uti Plan: the appearance of the obstruction appears somewhat chronic. Not sure there is a uti as the ua has alot of epithelial cells. the patient will need a double j catheter placed today to relieve the obstruction and renal failure today. at a later date a right ureteroscopy with laser lithotripsy will be performed.
[2020-11-24 07:57] LABS: Calcium 8.6 mg/dL (8.4-10.2); Potassium 4.3 mmol/L (3.5-5.1)
[2020-11-24] MEDS: lisinopriL 10 MG TAB PO SCH (09:34)
[2020-11-24] MEDS: ESCITALOPRAM 10 MG TAB PO SCH (09:34)
[2020-11-24 11:47] LABS: Glucose,Whole Blood 122 mg/dL (75-99)
[2020-11-24] MEDS ORDERED: IV FLUID CONTINUATION 1,000 ML IV ONE (12:45)
[2020-11-24] MEDS ORDERED: PROPOFOL 10 MG/ML 20 ML VIAL IV ONE (13:10)
[2020-11-24] MEDS ORDERED: fentaNYL (PF) 50 MCG/ML 2 ML AMP ONE (13:10)
[2020-11-24] MEDS ORDERED: KETAMINE 10 MG/ML 20 ML VIAL ONE (13:10)
[2020-11-24] MEDS ORDERED: MIDAZOLAM 2 MG/2 ML VIAL ONE (13:10)
[2020-11-24] MEDS ORDERED: LIDOCAINE 1% INJ 10MG/ML (20 ML MDV) ONE (13:10)
[2020-11-24] MEDS ORDERED: LACTATED RINGERS 1,000 ML IV ONE (14:05)
--- NOTE | 2020-11-24 14:17 | P.OP ---
Date of Procedure: 11/24/20 Preoperative Diagnosis: Solitary functioning right kidney, right ureteral obstruction with renal failure possible urinary infection Postoperative Diagnosis: Same Procedure(s) Performed: Cystoscopy, right ureteroscopy with placement of 4.8 x 24 double-J catheter Anesthesia: MAC Surgeon: Jose Wolff Pathology: none sent Condition: stable Disposition: PACU Indications for Procedure: The patient is 50. She has a history of stones. She presented the emergency room with a creatinine of 5.6 severe right flank pain. She is found a 1.3 cm stone in the distal ureter and significant hydronephrosis. She has a poorly functioning left kidney. Her urine appeared infected. She is been afebrile. She is still having pain. Because of the possible infection in the urine and the solitary kidney with a renal insufficiency I will place a double-J catheter Description of Procedure: Patient is brought to the operating suite. On the operating table she's given IV sedation. A sterile prep and drape was administered. Cystoscopy Foroblique lens and 22-Azerbaijani sheath identifies a chronically and acutely inflamed bladder with infected looking urine. I attempted pass an 035 wire up the right ureter but meet resistance due to the large obstructing distal ureteral stone. Several attempts failed. I passed the semirigid 7-Azerbaijani ureteroscope up to the stone and eventually I'm able to pass an 035 wire. I attempted pass the 6-Azerbaijani double-J catheter over the wire after backloaded the wire onto the cystoscope but it is too tight with a stone was impacted. Wire falls out I again have to eventually use a ureteroscope up to the stone to pass an 035 wire up to the right kidney. I then pass a 5-Azerbaijani open-ended catheter up the ureter with some difficulty. I then she'll have dilated ureter enough to pass a 4.8 double-J catheter over the wire. I'm able to successfully do this and the 4.8 wire and coils in the renal pelvis and the bladder. The urine from the double-J catheter is quite purulent. The bladder is drained and the patient is awakened and returned recovery room good condition Impression:highly impacted right ureteral calculus distally, urinary tract infection with pyelonephrosis. The patient will be observed in the hospital postoperatively until the renal failure clears and the urine cultures are back. In about 2-3 weeks she'll need a right ureteroscopy with laser lithotripsy.
[2020-11-24] MEDS ORDERED: ONDANSETRON ODT 4 MG TAB PO PRN (14:24)
[2020-11-24] MEDS ORDERED: traMADol 50 MG TAB PO PRN (14:24)
--- NOTE | 2020-11-24 14:51 | FL ---
Fluoroscopy HISTORY: Cystoscopy, ureteral stent 2 minutes 9 seconds fluoroscopy time supplied to the referring clinician. 1 intraoperative C-arm reagan ges document the procedure. See dictated report from urology.
--- NOTE | 2020-11-24 16:42 | HP ---
HISTORY AND PHYSICAL 50-year-old female with past history of diabetes, hypertension, renal stones; came to the emergency room with right-sided flank pain. Pain started a couple days ago. She was unable to urinate for the last couple days. She came to the hospital. She was found to have a huge ureteral stone with hydronephrosis of severe nature and acute renal failure. Denies black or bloody stools. No concern for . Denies vaginal bleeding. No alleviating or modifying factors. HOME MEDICINES: Lipitor 20 daily, ropinirole 1 mg daily, Lexapro 10 mg daily, omeprazole 20 mg a day, Zofran 4 mg q.6h p.r.n., lisinopril 10 mg daily, tramadol 50 b.i.d., ( ) 14 mg daily. ALLERGIES: SULFA, BACTRIM. REVIEW OF SYSTEMS: Fourteen-point review of systems negative except for abdominal bloating and flank pain. PAST MEDICAL HISTORY: Diabetes mellitus GERD, dyslipidemia, hypertension, liver disease, pneumonia, thyroid disorder, head injury, concussion, thyroid nodules, restless legs syndrome, gallbladder stones, fatty liver. SURGERIES: , joint replacement, orthopedic surgery, tubal ligation, right hip replacement, nephrostomy tubes bilaterally. FAMILY HISTORY: Father coronary disease, diabetes mellitus, history of diabetes mellitus. Mother had cancer of the lung. PHYSICAL EXAM: Vital signs stable, afebrile. Cardiovascular: S1, S2. Lungs: Transmitted upper airway sounds. Scattered wheeze x4. GI: Soft, distended due to obesity. Tenderness to palpation right flank. Extremities: No cyanosis, clubbing, edema. Range of motion full x4. Psych: Fair mood and affect. Skin dry, warm, intact. Blood pressure 120- 130s over 80s, pulse 78, sats 97-98, pulse rate is 100-109. CT showed a 1.3 cm calculus in distal right ureter, right-sided hydronephrosis, hydroureter, possible urosepsis. Infectious Disease, urology consult as well as Nephrology. Continue to rehydrated aggressively. Treat with broad-spectrum antibiotics. Wait for urostomy tube to be placed. Prognosis guarded. MMODL / IJN: [id number] /
[2020-11-24 17:16] LABS: Glucose,Whole Blood 180 mg/dL (75-99)
[2020-11-24] MEDS: CIPROFLOXACIN HCL 500 MG TAB PO SCH (17:49)
[2020-11-24 19:47] LABS: Glucose,Whole Blood 213 mg/dL (75-99)
[2020-11-24] MEDS ORDERED: cefTRIAXone IN SWFI 1,000 MG/10 ML SYRINGE IVP SCH (21:00)
[2020-11-24] MEDS: ATORVASTATIN 20 MG TAB PO SCH (21:44)
--- NOTE | 2020-11-24 23:24 | P.CONS ---
History of Present Illness - Reason for Consult Consult date: 11/24/20 Urinary tract infection Requesting physician: Ramiro Chávez - Chief Complaint Right flank pain x few days - History of Present Illness Patient is a 50-year-old female presenting to the ER last night for evaluation of right-sided flank pain patient did have pain going on for few days before presentation to the hospital patient described the pain to be more of a sharp in nature intensity is almost 7-8 out of 10 and no significant radiation with associated nausea but no vomiting patient was evaluated with a primary care physician the day before admission to hospital patient was diagnosed with UTI and was started on antibiotic and tramadol for pain however the patient had improvement and she presented to the hospital on arrival to the ER the patient was afebrile patient did have a white count of 14.4 with a left shift and did have elevated BUN to creatinine liver exams are normal her urine was positive patient did have CT of abdominal pelvis which did shows 1.3 cm calculus in the distal right ureter patient was admitted to hospital she was started on Rocephin infectious disease was consulted for further management of antibiotic therapy, patient has been evaluated by urology in this patient who status post cystoscopy and right ureteral stent placement Review of Systems Positive point has been mentioned in the HPI rest of the systems are negative Past Medical History Past Medical History: Diabetes Mellitus, GERD/Reflux, Hyperlipidemia, Hypertension, Liver Disease, Pneumonia, Thyroid Disorder Additional Past Medical History / Comment(s): HEAD INJURY/concussion d/t fall at ge 6, kidney stones, thyroid nodules, ddd, no rx for BP, restless leg syndrome, gallstones, fatty liver, History of Any Multi-Drug Resistant Organisms: None Reported Past Surgical History: Section, Joint Replacement, Orthopedic Surgery, Tubal Ligation Additional Past Surgical History / Comment(s): rush. nephrostolithotomy, nephrostomy tubes/later removal, rt hip replacement, hx parathyroid bx, carpel tunnel bilateral Past Anesthesia/Blood Transfusion Reactions: No Reported Reaction Additional Past Anesthesia/Blood Transfusion Reaction / Comm: claustrophobia Past Psychological History: Depression Additional Psychological History / Comment(s): claustrophobia Smoking Status: Current some day smoker Past Alcohol Use History: None Reported Additional Past Alcohol Use History / Comment(s): started smoking at age 15 smokes 1 ppd Past Drug Use History: None Reported - Past Family History Father Family Medical History: Coronary Artery Disease (CAD), Diabetes Mellitus Sister(s) Family Medical History: Diabetes Mellitus Mother Family Medical History: Cancer Additional Family Medical History / Comment(s): LUNG Medications and Allergies Home Medications Medication Instructions Recorded Confirmed Type Atorvastatin [Lipitor] 20 mg PO HS 09/16/18 11/23/20 History rOPINIRole HCL [Requip] 1 mg PO HS 09/16/18 11/23/20 History Ciprofloxacin HCl [Cipro] 500 mg PO BID 7 Days #14 tab 06/20/20 11/23/20 Rx Escitalopram [Lexapro] 10 mg PO DAILY 11/23/20 11/23/20 History Omeprazole Magnesium [PriLOSEC OTC] 20 mg PO DAILY 11/23/20 11/23/20 History Ondansetron [Zofran ODT] 4 mg PO Q4H PRN 11/23/20 11/23/20 History Phentermine HCl [Adipex-P] 37.5 mg PO DAILY 11/23/20 11/23/20 History lisinopriL 10 mg PO DAILY 11/23/20 11/23/20 History traMADol HCL 50 mg PO BID PRN 11/23/20 11/23/20 History Semaglutide [Rybelsus] 14 mg PO DAILY 11/24/20 11/24/20 History Allergies Allergy/AdvReac Type Severity Reaction Status Date / Time Sulfa (Sulfonamide AdvReac Nausea & Verified 11/24/20 12:54 Antibiotics) Vomiting sulfamethoxazole AdvReac Nausea & Verified 11/24/20 12:54 [From Bactrim] Vomiting trimethoprim [From Bactrim] AdvReac Nausea & Verified 11/24/20 12:54 Vomiting Physical Exam Vitals: Vital Signs Temp Pulse Pulse Resp BP BP Pulse Ox 11/24/20 07:34 98.3 F 89 16 130/80 98 11/24/20 03:45 98.3 F 93 17 124/77 97 11/23/20 23:25 98.6 F 98 17 124/81 96 11/23/20 21:55 98.5 F 100 17 132/83 97 11/23/20 17:21 97.9 F 109 H 18 127/80 98 Intake and Output 11/23/20 11/24/20 11/24/20 22:59 06:59 14:59 Intake Total 10 Output Total 200 Balance -190 Intake: IV 10 Invasive Line 1 10 Output: Urine 200 Other: Voiding Method Toilet # Voids 1 Weight 98.43 kg 98.3 kg GENERAL DESCRIPTION: Middle-aged female lying in bed, no distress. No tachypnea or accessory muscle of respiration use. HEENT: Shows Pallor , no scleral icterus. Oral mucous membrane is dry. No pharyngeal erythema or thrush NECK: Trachea central, no thyromegaly. LUNGS: Unlabored breathing. Clear to auscultation anteriorly. No wheeze or crackle. HEART: S1, S2, regular rate and rhythm. No loud murmur ABDOMEN: Soft, no tenderness , guarding or rigidity, no organomegaly EXTREMITIES: No edema of feet. SKIN: No rash, no masses palpable. NEUROLOGICAL: The patient is awake, alert, oriented x3, mood and affect normal. Results CBC & Chem 7: 11/24/20 07:22 11/24/20 07:22 Labs: Abnormal Lab Results - Last 24 Hours (Table) 11/23/20 11/23/20 11/23/20 Range/Units 18:42 18:42 18:42 WBC 14.4 H (3.8-10.6) k/uL Neutrophils # 11.6 H (1.3-7.7) k/uL Sodium 133 L (137-145) mmol/L Chloride (98-107) mmol/L Carbon Dioxide 20 L (22-30) mmol/L BUN 40 H (7-17) mg/dL Creatinine 5.60 H (0.52-1.04) mg/dL Glucose 163 H (74-99) mg/dL POC Glucose (mg/dL) (75-99) mg/dL Alkaline Phosphatase 150 H (38-126) U/L Urine Appearance Cloudy H (Clear) Urine Protein 1+ H (Negative) Urine Blood Moderate H (Negative) Ur Leukocyte Esterase Large H (Negative) Urine RBC 114 H (0-5) /hpf Urine WBC 91 H (0-5) /hpf Urine WBC Clumps Few H (None) /hpf Ur Squamous Epith Cells 13 H (0-4) /hpf Urine Bacteria Occasional H (None) /hpf Urine Mucus Rare H (None) /hpf Urine Yeast (Budding) Few H (None) /hpf 11/23/20 11/24/20 11/24/20 Range/Units 22:15 05:54 07:22 WBC 11.6 H (3.8-10.6) k/uL Neutrophils # 9.2 H (1.3-7.7) k/uL Sodium (137-145) mmol/L Chloride (98-107) mmol/L Carbon Dioxide (22-30) mmol/L BUN (7-17) mg/dL Creatinine (0.52-1.04) mg/dL Glucose (74-99) mg/dL POC Glucose (mg/dL) 125 H 163 H (75-99) mg/dL Alkaline Phosphatase (38-126) U/L Urine Appearance (Clear) Urine Protein (Negative) Urine Blood (Negative) Ur Leukocyte Esterase (Negative) Urine RBC (0-5) /hpf Urine WBC (0-5) /hpf Urine WBC Clumps (None) /hpf Ur Squamous Epith Cells (0-4) /hpf Urine Bacteria (None) /hpf Urine Mucus (None) /hpf Urine Yeast (Budding) (None) /hpf 11/24/20 11/24/20 Range/Units 07:22 11:46 WBC (3.8-10.6) k/uL Neutrophils # (1.3-7.7) k/uL Sodium (137-145) mmol/L Chloride 109 H (98-107) mmol/L Carbon Dioxide 18 L (22-30) mmol/L BUN 45 H (7-17) mg/dL Creatinine 6.29 H (0.52-1.04) mg/dL Glucose 164 H (74-99) mg/dL POC Glucose (mg/dL) 122 H (75-99) mg/dL Alkaline Phosphatase (38-126) U/L Urine Appearance (Clear) Urine Protein (Negative) Urine Blood (Negative) Ur Leukocyte Esterase (Negative) Urine RBC (0-5) /hpf Urine WBC (0-5) /hpf Urine WBC Clumps (None) /hpf Ur Squamous Epith Cells (0-4) /hpf Urine Bacteria (None) /hpf Urine Mucus (None) /hpf Urine Yeast (Budding) (None) /hpf Assessment and Plan Assessment: 1-patient with a complicated urinary tract infection/pyelonephritis in this patient who did have a right-sided hydronephrosis severe status post cystoscopy and right ureteral stent placement will need to cover for the data gram-negative to the likely pathogen 2-patient with renal insufficiency and high risk of nephrotoxicity 3-patient with multiple antibiotic allergies that would limit the number of anti biotics safe to use (1) UTI (urinary tract infection) Current Visit: Yes Status: Acute Code(s): N39.0 - URINARY TRACT INFECTION, SITE NOT SPECIFIED SNOMED Code(s): 42305603 Plan: 1-patient to continue with Rocephin 1 g IV piggyback daily 2-gentle IV fluid We will follow on clinical condition and cultures to further adjust medication if needed Thank you for this consultation we will follow the patient along with you Time with Patient: Greater than 30
[2020-11-25 05:47] LABS: Glucose,Whole Blood 134 mg/dL (75-99)
[2020-11-25] MEDS: PANTOPRAZOLE 40 MG TABLET PO SCH (06:45)
[2020-11-25] MEDS: PATIENT'S OWN (Phentermine Hcl [Adipex-P] 37.5 MG Tablet) PO SCH (07:35)
[2020-11-25] MEDS: PATIENT'S OWN (Semaglutide [Rybelsus] 14 MG Tablet) PO SCH (07:35)
[2020-11-25 07:46] LABS: Basophils # (A) 0.1 k/uL (0-0.2); Basophils % (A) 1 %; Eosinophils # (A) 0.2 k/uL (0-0.7); Eosinophils % (A) 2 %; HCT 36.8 % (34.0-46.0); HGB 11.7 gm/dL (11.4-16.0); Lymphocytes # (A) 1.7 k/uL (1.0-4.8); Lymphocytes % (A) 18 %; MCHC 31.8 g/dL (31.0-37.0); MCV 94.1 fL (80.0-100.0); Mean Platelet Volume 8.9; Monocytes # (A) 0.5 k/uL (0-1.0); Monocytes % (A) 5 %; Neutrophils # (A) 6.7 k/uL (1.3-7.7); Neutrophils % (A) 72 %; Platelet Count 249 k/uL (150-450); RBC 3.91 m/uL (3.80-5.40); RDW 12.5 % (11.5-15.5); WBC 9.3 k/uL (3.8-10.6)
[2020-11-25 08:08] LABS: Albumin 3.2 g/dL (3.5-5.0); Calcium 8.8 mg/dL (8.4-10.2); Potassium 4.1 mmol/L (3.5-5.1); Total Bilirubin 0.3 mg/dL (0.2-1.3); Total Protein 6.3 g/dL (6.3-8.2)
[2020-11-25] MEDS: CIPROFLOXACIN HCL 500 MG TAB PO SCH (08:18)
[2020-11-25] MEDS: ESCITALOPRAM 10 MG TAB PO SCH (08:18)
[2020-11-25] MEDS: SODIUM CHLORIDE 0.9% 1,000 ML IV SCH ×3 (08:20→15:00)
--- NOTE | 2020-11-25 08:34 | P.NPCON ---
History of Present Illness - Reason for Consult acute renal failure, chronic renal failure - History of Present Illness Reason for consultation: Acute kidney injury on chronic kidney disease History of present illness: Patient is a 50-year-old female seen in renal consultation for acute kidney injury on chronic kidney disease. Patient has chronic kidney disease stage IIIa. Baseline creatinine the range of 1.3-1.5 secondary to solitary functioning right kidney. Patient presented to the hospital with right-sided flank pain. Patient states she did see her primary care physician and was given an antibiotic for a possible UTI prior to admission. However dye did not relieve her symptoms she came to the hospital. She underwent CAT scan of the abdomen and pelvis which revealed severe right-sided hydronephrosis due to nephrolithiasis. She subsequently underwent cystoscopy with placement of right- sided double-J catheter yesterday. She will need lithotripsy in the near future. Creatinine peaked at 6.29 this admission and is down to 3.98 today. She admits to good urine output. Does have hematuria. No vomiting or diarrhea. Oral intake is good. She is receiving IV fluids. She denies use of nonsteroidals. She does have history of diabetes. Denies family history of renal disease. Vital signs are stable. General: The patient appeared well nourished and normally developed. HEENT: Head exam is unremarkable. Neck is without jugular venous distension. LUNGS: Breath sounds decreased. HEART: Rate and Rhythm are regular. ABDOMEN: Soft, no distention. EXTREMITITES: No edema. Past Medical History Past Medical History: Diabetes Mellitus, GERD/Reflux, Hyperlipidemia, Hypertension, Liver Disease, Pneumonia, Thyroid Disorder Additional Past Medical History / Comment(s): HEAD INJURY/concussion d/t fall at ge 6, kidney stones, thyroid nodules, ddd, no rx for BP, restless leg syndrome, gallstones, fatty liver, History of Any Multi-Drug Resistant Organisms: None Reported Past Surgical History: Section, Joint Replacement, Orthopedic Surgery, Tubal Ligation Additional Past Surgical History / Comment(s): rush. nephrostolithotomy, nephr ostomy tubes/later removal, rt hip replacement, hx parathyroid bx, carpel tunnel bilateral Past Anesthesia/Blood Transfusion Reactions: No Reported Reaction Additional Past Anesthesia/Blood Transfusion Reaction / Comment(s): claustrophobia Past Psychological History: Depression Additional Psychological History / Comment(s): claustrophobia Smoking Status: Current some day smoker Past Alcohol Use History: None Reported Additional Past Alcohol Use History / Comment(s): started smoking at age 15 smokes 1 ppd Past Drug Use History: None Reported - Past Family History Father Family Medical History: Coronary Artery Disease (CAD), Diabetes Mellitus Sister(s) Family Medical History: Diabetes Mellitus Mother Family Medical History: Cancer Additional Family Medical History / Comment(s): LUNG Medications and Allergies Home Medications Medication Instructions Recorded Confirmed Type Atorvastatin [Lipitor] 20 mg PO HS 09/16/18 11/23/20 History rOPINIRole HCL [Requip] 1 mg PO HS 09/16/18 11/23/20 History Ciprofloxacin HCl [Cipro] 500 mg PO BID 7 Days #14 tab 06/20/20 11/23/20 Rx Escitalopram [Lexapro] 10 mg PO DAILY 11/23/20 11/23/20 History Omeprazole Magnesium [PriLOSEC OTC] 20 mg PO DAILY 11/23/20 11/23/20 History Ondansetron [Zofran ODT] 4 mg PO Q4H PRN 11/23/20 11/23/20 History Phentermine HCl [Adipex-P] 37.5 mg PO DAILY 11/23/20 11/23/20 History lisinopriL 10 mg PO DAILY 11/23/20 11/23/20 History traMADol HCL 50 mg PO BID PRN 11/23/20 11/23/20 History Semaglutide [Rybelsus] 14 mg PO DAILY 11/24/20 11/24/20 History Allergies Allergy/AdvReac Type Severity Reaction Status Date / Time Sulfa (Sulfonamide AdvReac Nausea & Verified 11/24/20 12:54 Antibiotics) Vomiting sulfamethoxazole AdvReac Nausea & Verified 11/24/20 12:54 [From Bactrim] Vomiting trimethoprim [From Bactrim] AdvReac Nausea & Verified 11/24/20 12:54 Vomiting Physical Exam Vitals: Vital Signs Temp Pulse Pulse Resp BP Pulse Ox 11/25/20 04:00 85 18 108/85 96 11/25/20 00:11 91 90 16 11/24/20 20:00 97.8 F 91 90 16 109/74 96 11/24/20 15:00 97.6 F 89 16 111/75 95 11/24/20 14:45 91 16 123/76 97 11/24/20 14:30 91 16 118/71 100 11/24/20 14:13 97.0 F L 99 16 126/72 100 11/24/20 12:35 98.0 F 92 16 131/70 97 11/24/20 12:00 98.2 F 87 16 126/80 97 Intake and Output 11/24/20 11/25/20 11/25/20 22:59 06:59 14:59 Intake Total 600 Output Total 900 2700 Balance -300 -2700 Intake: Oral 600 Output: Urine 900 2700 Other: Voiding Method Toilet Toilet # Voids 1 Weight 99.3 kg Results - Lab Results Most recent lab results Calcium 8.8 mg/dL (8.4-10.2) 11/25/20 07:31 11/25/20 07:31 11/25/20 07:31 Assessment and Plan Plan: Assessment: 1. Acute kidney injury secondary to obstructive uropathy. Creatinine peaked at 6.29 this admission and is 3.98 today. 2. Chronic kidney disease stage IIIB with baseline creatinine in the range of 1.3-1.5 secondary to solitary functioning right kidney and obstructive uropathy. 3. Left atrophic kidney. 4. Hypertension with chronic kidney disease. Controlled. 5. Diabetes mellitus. 6. Right-sided hydronephrosis secondary to nephrolithiasis status post cystoscopy with double-J stent placement on November 24. 7. Metabolic acidosis secondary to acute kidney injury. Better. Plan: Maintain IV fluids. I will decrease the rate to 80 mL an hour. Continue ATUL inhibitor for now as renal function improving. Avoid nephrotoxins. Continue to monitor renal function and urine output. Patient was encouraged to follow up outpatient for CKD care. Thank you for the consultation. I will continue to follow the patient with you during her hospital stay.
[2020-11-25] MEDS: lisinopriL 10 MG TAB PO SCH (10:26)
--- NOTE | 2020-11-25 10:59 | P.PN ---
Subjective Progress Note Date: 11/25/20 The patient is in the first postoperative day from placement of a double-J catheter in the right collecting system as of obstruction from a very large distal ureteral stone. She has a poorly functioning left kidney. Her creatinine was 5.6 and is dropped to 3.9 today. She is feeling much better. Cultures are pending. She is afebrile. Her main urologic standpoint she can be discharged home on cultures are back nephrology is satisfied with her kidney function. She will need a stone and stent removal at a later date as an outpatient. We also have to address the right renal stone secondarily this is been discussed with the patient and she understands. Objective - Vital Signs Vital signs: Vital Signs Temp 97.8 F 11/24/20 20:00 Pulse 85 11/25/20 04:00 Resp 18 11/25/20 04:00 BP 108/85 11/25/20 04:00 Pulse Ox 96 11/25/20 04:00 Intake & Output 11/24/20 11/25/20 11/25/20 18:59 06:59 18:59 Intake Total 1810 240 Output Total 1100 2700 Balance 710 -2700 240 Weight 99.3 kg Intake: IV 1210 Invasive Line 1 10 Oral 600 240 Output: Urine 1100 2700 Estimated Blood Loss 0 Other: Voiding Method Toilet # Voids 1 - Labs CBC & Chem 7: 11/25/20 07:31 11/25/20 07:31 Labs: Abnormal Lab Results - Last 24 Hours (Table) 11/24/20 11/24/20 11/24/20 Range/Units 11:46 17:15 19:44 Chloride (98-107) mmol/L Carbon Dioxide (22-30) mmol/L BUN (7-17) mg/dL Creatinine (0.52-1.04) mg/dL Glucose (74-99) mg/dL POC Glucose (mg/dL) 122 H 180 H 213 H (75-99) mg/dL Alkaline Phosphatase (38-126) U/L Albumin (3.5-5.0) g/dL 11/25/20 11/25/20 Range/Units 05:46 07:31 Chloride 108 H (98-107) mmol/L Carbon Dioxide 21 L (22-30) mmol/L BUN 37 H (7-17) mg/dL Creatinine 3.98 H (0.52-1.04) mg/dL Glucose 174 H (74-99) mg/dL POC Glucose (mg/dL) 134 H (75-99) mg/dL Alkaline Phosphatase 183 H (38-126) U/L Albumin 3.2 L (3.5-5.0) g/dL Microbiology - Last 24 Hours (Table) 11/23/20 20:33 Blood Culture - Preliminary Blood No Growth after 24 hours 11/23/20 20:28 Blood Culture - Preliminary Blood No Growth after 24 hours
--- NOTE | 2020-11-25 11:56 | PN ---
PROGRESS NOTE A 50-year-old white female, status post double-J catheter in the right collecting system due to obstruction of her large right distal ureteral stone with a poorly functioning kidney. Creatinine of 5.6 yesterday is now down to 3.9, feeling much better. Cultures are pending. Remains on broad-spectrum antibiotics. Temperature 97.8, pulse 85 respiratory rate 16 to 18, blood pressure 108/85, O2 of 96. Cardiovascular S1, S2. Lungs clear. GI soft. Hematology negative Homans. Blood cultures are negative for 24 hours. Sugars in the mid 100s. Continue current treatment. Broad-spectrum antibiotics. Monitor renal functions. Prognosis is good. MMODL / IJN: [id number] /
[2020-11-25 12:11] LABS: Glucose,Whole Blood 98 mg/dL (75-99)
--- NOTE | 2020-11-25 15:50 | PN ---
PROGRESS NOTE DATE OF SERVICE: 11/25/2020 REASON FOR FOLLOWUP: Complicated UTI and pyelonephritis. INTERVAL HISTORY: The patient is afebrile. The patient is feeling better. The patient's right flank pain has improved. The patient denies having any chest pain or shortness of breath or cough. No abdominal pain or diarrhea. PHYSICAL EXAMINATION: Blood pressure 136/84 with a pulse of 83, temperature 98.2. She is 98% on room air. GENERAL DESCRIPTION: General description is a middle-aged female up in the bed in no distress. RESPIRATORY SYSTEM: Unlabored breathing. Decreased intensity of breath sounds. No wheeze. HEART: S1, S2. Regular rate and rhythm. ABDOMEN: Soft. No tenderness. LABS: White count normalized to 9.3, BUN of 37, creatinine 3.98. Unfortunately no urine cultures were done. Blood cultures have been negative. DIAGNOSTIC IMPRESSION AND PLAN: Patient with a complicated urinary tract infection with right-sided pyelonephritis in this patient who is status post cystoscopy with ureteral stent placement. The patient responded to Rocephin; to continue. Transition to oral antibiotic on discharge and continue supportive care. MMODL / IJN: [id number] / AVANI
[2020-11-25 16:35] LABS: Glucose,Whole Blood 155 mg/dL (75-99)
[2020-11-25 19:45] LABS: Glucose,Whole Blood 143 mg/dL (75-99)
[2020-11-25 19:47] VITALS: RESP 16
[2020-11-25] MEDS: ATORVASTATIN 20 MG TAB PO SCH (21:17)
[2020-11-26] MEDS: SODIUM CHLORIDE 0.9% 1,000 ML IV SCH ×2 (03:19→16:13)
[2020-11-26 06:07] LABS: Glucose,Whole Blood 176 mg/dL (75-99)
[2020-11-26] MEDS: CIPROFLOXACIN HCL 500 MG TAB PO SCH ×2 (06:08→23:02)
[2020-11-26] MEDS: PANTOPRAZOLE 40 MG TABLET PO SCH (06:09)
[2020-11-26 08:40] LABS: Albumin 3.1 g/dL (3.5-5.0); Calcium 8.9 mg/dL (8.4-10.2); Magnesium 1.3 mg/dL (1.6-2.3); Potassium 4.2 mmol/L (3.5-5.1); Total Bilirubin 0.1 mg/dL (0.2-1.3); Total Protein 6.2 g/dL (6.3-8.2)
[2020-11-26 08:41] LABS: HCT 36.1 % (34.0-46.0); HGB 12.1 gm/dL (11.4-16.0); MCH 31.2 pg (25.0-35.0); MCHC 33.7 g/dL (31.0-37.0); MCV 92.7 fL (80.0-100.0); Mean Platelet Volume 7.6; Platelet Count 307 k/uL (150-450); RBC 3.89 m/uL (3.80-5.40); RDW 12.6 % (11.5-15.5); WBC 6.7 k/uL (3.8-10.6)
[2020-11-26] MEDS: PATIENT'S OWN (Phentermine Hcl [Adipex-P] 37.5 MG Tablet) PO SCH (08:52)
[2020-11-26] MEDS: PATIENT'S OWN (Semaglutide [Rybelsus] 14 MG Tablet) PO SCH (08:52)
[2020-11-26] MEDS: ESCITALOPRAM 10 MG TAB PO SCH (08:53)
[2020-11-26] MEDS: lisinopriL 10 MG TAB PO SCH (08:53)
--- NOTE | 2020-11-26 09:02 | P.PN ---
Subjective Patient is seen in follow-up for acute kidney injury on chronic kidney disease. Patient has chronic kidney disease stage IIIa with baseline creatinine in the range of 1.3-1.5 secondary to solitary functioning right kidney. She had a right-sided ureteral stent placed this admission. Good urine output. Renal function improving. Oral intake is good. Vital signs are stable. General: The patient appeared well nourished and normally developed. HEENT: Head exam is unremarkable. Neck is without jugular venous distension. LUNGS: Breath sounds decreased. HEART: Rate and Rhythm are regular. ABDOMEN: Soft, no distention. EXTREMITITES: No edema. Objective - Vital Signs Vital signs: Vital Signs Temp 98.2 F 11/26/20 08:12 Pulse 76 11/26/20 08:12 Resp 16 11/26/20 08:12 BP 147/91 11/26/20 08:12 Pulse Ox 95 11/26/20 08:12 Intake & Output 11/25/20 11/26/20 11/26/20 18:59 06:59 18:59 Intake Total 5600 240 Output Total 2400 Balance 3200 240 Weight 98 kg Intake: IV 1360 Sodium Chloride 0.9% 1, 1040 000 ml @ 130 mls/hr IV . Q7H42M [facility] Rx#:[id number] Sodium Chloride 0.9% 1, 320 000 ml @ 80 mls/hr IV . [id number] [facility] Rx#:[id number] Oral 4240 240 Output: Urine 2400 Other: Voiding Method Toilet Toilet Toilet # Voids 1 - Labs CBC & Chem 7: 11/25/20 07:31 11/26/20 08:05 Labs: Abnormal Lab Results - Last 24 Hours (Table) 11/25/20 11/25/20 11/26/20 Range/Units 16:33 19:38 06:03 Chloride (98-107) mmol/L BUN (7-17) mg/dL Creatinine (0.52-1.04) mg/dL Glucose (74-99) mg/dL POC Glucose (mg/dL) 155 H 143 H 176 H (75-99) mg/dL Magnesium (1.6-2.3) mg/dL Total Bilirubin (0.2-1.3) mg/dL Alkaline Phosphatase (38-126) U/L Total Protein (6.3-8.2) g/dL Albumin (3.5-5.0) g/dL 11/26/20 Range/Units 08:05 Chloride 110 H (98-107) mmol/L BUN 25 H (7-17) mg/dL Creatinine 2.33 H (0.52-1.04) mg/dL Glucose 166 H (74-99) mg/dL POC Glucose (mg/dL) (75-99) mg/dL Magnesium 1.3 L (1.6-2.3) mg/dL Total Bilirubin 0.1 L (0.2-1.3) mg/dL Alkaline Phosphatase 167 H (38-126) U/L Total Protein 6.2 L (6.3-8.2) g/dL Albumin 3.1 L (3.5-5.0) g/dL Microbiology - Last 24 Hours (Table) 11/25/20 16:16 Urine Culture - Preliminary Urine,Clean Catch 11/23/20 20:33 Blood Culture - Preliminary Blood No Growth after 48 hours 11/23/20 20:28 Blood Culture - Preliminary Blood No Growth after 48 hours Assessment and Plan Plan: Assessment: 1. Acute kidney injury secondary to obstructive uropathy. Creatinine peaked at 6.29 this admission and is 2.33 today. 2. Chronic kidney disease stage IIIa with baseline creatinine in the range of 1.3-1.5 secondary to solitary functioning right kidney and obstructive uropathy. 3. Left atrophic kidney. 4. Hypertension with chronic kidney disease. Stable. 5. Diabetes mellitus. 6. Right-sided hydronephrosis secondary to nephrolithiasis status post cystoscopy with double-J stent placement on November 24. 7. Metabolic acidosis secondary to acute kidney injury. Better. 8. Hypomagnesemia from poor intake and postobstructive diuresis. Plan: Maintain IV fluids. Continue ATUL inhibitor for now as renal function improving and blood pressure not low. Avoid nephrotoxins. Continue to monitor renal function and urine output. Replace magnesium. Patient was encouraged to follow up outpatient for CKD care.
[2020-11-26] MEDS: MAGNESIUM SULFATE-D5W PMX 1 GM in DEXTROSE/WATER 1 100ML.BAG IVPB SCH ×3 (09:13→13:26)
[2020-11-26 09:27] LABS: Nucleated Red Blood Cells 0 /100 WBC (0-0)
[2020-11-26 09:33] LABS: Eosinophils # (M) 0.13 k/uL (0-0.7); Lymphocytes # (M) 2.14 k/uL (1.0-4.8); Monocytes # (M) 0.74 k/uL (0-1.0); Neutrophils # (M) 3.75 k/uL (1.3-7.7); Neutrophils % (M) 56 %; Total Cells Counted 200
--- NOTE | 2020-11-26 10:10 | P.PN ---
Subjective Progress Note Date: 11/26/20 The patient continues to improve. Creatinine is dropped to 2.3 from a high at 5.6. She is comfortable the stent. The patient will need stone and stent removal at a later date. Objective - Vital Signs Vital signs: Vital Signs Temp 98.2 F 11/26/20 08:12 Pulse 76 11/26/20 08:12 Resp 16 11/26/20 08:12 BP 147/91 11/26/20 08:12 Pulse Ox 95 11/26/20 08:12 Intake & Output 11/25/20 11/26/20 11/26/20 18:59 06:59 18:59 Intake Total 5600 240 Output Total 2400 Balance 3200 240 Weight 98 kg Intake: IV 1360 Sodium Chloride 0.9% 1, 1040 000 ml @ 130 mls/hr IV . Q7H42M [facility] Rx#:[id number] Sodium Chloride 0.9% 1, 320 000 ml @ 80 mls/hr IV . [id number] [facility] Rx#:[id number] Oral 4240 240 Output: Urine 2400 Other: Voiding Method Toilet Toilet Toilet # Voids 1 - Labs CBC & Chem 7: 11/26/20 08:05 11/26/20 08:05 Labs: Abnormal Lab Results - Last 24 Hours (Table) 11/25/20 11/25/20 11/26/20 Range/Units 16:33 19:38 06:03 Chloride (98-107) mmol/L BUN (7-17) mg/dL Creatinine (0.52-1.04) mg/dL Glucose (74-99) mg/dL POC Glucose (mg/dL) 155 H 143 H 176 H (75-99) mg/dL Magnesium (1.6-2.3) mg/dL Total Bilirubin (0.2-1.3) mg/dL Alkaline Phosphatase (38-126) U/L Total Protein (6.3-8.2) g/dL Albumin (3.5-5.0) g/dL 11/26/20 Range/Units 08:05 Chloride 110 H (98-107) mmol/L BUN 25 H (7-17) mg/dL Creatinine 2.33 H (0.52-1.04) mg/dL Glucose 166 H (74-99) mg/dL POC Glucose (mg/dL) (75-99) mg/dL Magnesium 1.3 L (1.6-2.3) mg/dL Total Bilirubin 0.1 L (0.2-1.3) mg/dL Alkaline Phosphatase 167 H (38-126) U/L Total Protein 6.2 L (6.3-8.2) g/dL Albumin 3.1 L (3.5-5.0) g/dL Microbiology - Last 24 Hours (Table) 11/25/20 16:16 Urine Culture - Preliminary Urine,Clean Catch 11/23/20 20:33 Blood Culture - Preliminary Blood No Growth after 48 hours 11/23/20 20:28 Blood Culture - Preliminary Blood No Growth after 48 hours
[2020-11-26 11:32] LABS: Glucose,Whole Blood 166 mg/dL (75-99)
[2020-11-26 16:18] LABS: Glucose,Whole Blood 191 mg/dL (75-99)
--- NOTE | 2020-11-26 18:36 | PN ---
PROGRESS NOTE DATE OF SERVICE: 11/26/2020 REASON FOR FOLLOWUP: Complicated UTI. INTERVAL HISTORY: The patient is currently afebrile. The patient is feeling better, breathing comfortably. Denies having any chest pain or shortness of breath or cough. Right flank pain has improved. No vomiting. No abdominal pain or diarrhea. PHYSICAL EXAMINATION: Blood pressure 159/90 with a pulse of 69, temperature 98.6. She is 98% on room air. GENERAL DESCRIPTION: General description is a middle-aged female up in the bed in no distress. RESPIRATORY SYSTEM: Unlabored breathing. Decreased breath sounds at the bases. No wheeze. HEART: S1, S2. Regular rate and rhythm. ABDOMEN: Soft. No tenderness. LABS: Hemoglobin is 12.1, white count 6.7, BUN of 25, creatinine is down to 2.3. Urine cultures pending. Blood culture so far negative. DIAGNOSTIC IMPRESSION AND PLAN: Patient with a complicated urinary tract infection in this patient who is status post cystoscopy and right ureteral stent placement. Kidney function is improving. The patient is covered with Rocephin; to continue while waiting for the culture to finalize to determine her discharge antibiotics. Continue with supportive care. MMODL / IJN: [id number] /
[2020-11-26 20:12] LABS: Glucose,Whole Blood 151 mg/dL (75-99)
[2020-11-26] MEDS: ATORVASTATIN 20 MG TAB PO SCH (20:20)
[2020-11-27 06:09] LABS: Glucose,Whole Blood 169 mg/dL (75-99)
[2020-11-27 06:50] LABS: Albumin 3.3 g/dL (3.5-5.0)
[2020-11-27 06:52] LABS: Calcium 9.1 mg/dL (8.4-10.2); Magnesium 1.6 mg/dL (1.6-2.3); Total Bilirubin 0.4 mg/dL (0.2-1.3); Total Protein 6.7 g/dL (6.3-8.2)
[2020-11-27 06:58] LABS: Potassium 4.4 mmol/L (3.5-5.1)
[2020-11-27] MEDS: PANTOPRAZOLE 40 MG TABLET PO SCH (07:10)
[2020-11-27 07:12] LABS: HCT 38.1 % (34.0-46.0); HGB 12.8 gm/dL (11.4-16.0); MCH 30.8 pg (25.0-35.0); MCHC 33.7 g/dL (31.0-37.0); MCV 91.3 fL (80.0-100.0); Mean Platelet Volume 7.1; Platelet Count 368 k/uL (150-450); RBC 4.17 m/uL (3.80-5.40); RDW 12.6 % (11.5-15.5); WBC 6.6 k/uL (3.8-10.6)
[2020-11-27 07:54] LABS: Eosinophils # (M) 0.07 k/uL (0-0.7); Lymphocytes # (M) 1.98 k/uL (1.0-4.8); Monocytes # (M) 0.79 k/uL (0-1.0); Neutrophils # (M) 3.76 k/uL (1.3-7.7); Neutrophils % (M) 57 %; Nucleated Red Blood Cells 0 /100 WBC (0-0); Total Cells Counted 100
[2020-11-27] MEDS: SODIUM CHLORIDE 0.9% 1,000 ML IV SCH (08:27)
[2020-11-27] MEDS: lisinopriL 10 MG TAB PO SCH (08:28)
[2020-11-27] MEDS: PATIENT'S OWN (Phentermine Hcl [Adipex-P] 37.5 MG Tablet) PO SCH (08:28)
[2020-11-27] MEDS: ESCITALOPRAM 10 MG TAB PO SCH (08:28)
[2020-11-27] MEDS: PATIENT'S OWN (Semaglutide [Rybelsus] 14 MG Tablet) PO SCH (08:28)
--- NOTE | 2020-11-27 09:10 | P.PN ---
Subjective Patient is seen in follow-up for acute kidney injury on chronic kidney disease. Patient has chronic kidney disease stage IIIa with baseline creatinine in the range of 1.3-1.5 secondary to solitary functioning right kidney. She had a right-sided ureteral stent placed this admission. Good urine output. Renal function improving. Oral intake is good. No changes overnight. Vital signs are stable. General: The patient appeared well nourished and normally developed. HEENT: Head exam is unremarkable. Neck is without jugular venous distension. LUNGS: Breath sounds decreased. HEART: Rate and Rhythm are regular. ABDOMEN: Soft, no distention. EXTREMITITES: No edema. Objective - Vital Signs Vital signs: Vital Signs Temp 97.6 F 11/27/20 04:00 Pulse 67 11/27/20 04:00 Resp 16 11/27/20 04:00 BP 153/96 11/27/20 04:00 Pulse Ox 98 11/27/20 04:00 Intake & Output 11/26/20 11/27/20 11/27/20 18:59 06:59 18:59 Intake Total 1580 20 240 Output Total 400 Balance 1180 20 240 Weight 97.6 kg Intake: IV 20 20 Invasive Line 1 20 20 Oral 1560 240 Output: Urine 400 Other: Voiding Method Toilet Toilet # Voids 1 - Labs CBC & Chem 7: 11/27/20 05:46 11/27/20 05:46 Labs: Abnormal Lab Results - Last 24 Hours (Table) 11/26/20 11/26/20 11/26/20 Range/Units 11:28 16:17 20:11 Chloride (98-107) mmol/L Creatinine (0.52-1.04) mg/dL Glucose (74-99) mg/dL POC Glucose (mg/dL) 166 H 191 H 151 H (75-99) mg/dL Alkaline Phosphatase (38-126) U/L Albumin (3.5-5.0) g/dL 11/27/20 11/27/20 Range/Units 05:46 06:07 Chloride 112 H (98-107) mmol/L Creatinine 1.67 H (0.52-1.04) mg/dL Glucose 145 H (74-99) mg/dL POC Glucose (mg/dL) 169 H (75-99) mg/dL Alkaline Phosphatase 156 H (38-126) U/L Albumin 3.3 L (3.5-5.0) g/dL Microbiology - Last 24 Hours (Table) 11/23/20 20:33 Blood Culture - Preliminary Blood No Growth after 72 hours 11/23/20 20:28 Blood Culture - Preliminary Blood No Growth after 72 hours 11/25/20 16:16 Urine Culture - Final Urine,Clean Catch Assessment and Plan Plan: Assessment: 1. Acute kidney injury secondary to obstructive uropathy. Creatinine peaked at 6.29 this admission and is 1.67 today. 2. Chronic kidney disease stage IIIa with baseline creatinine in the range of 1.3-1.5 secondary to solitary functioning right kidney and obstructive uropathy. 3. Left atrophic kidney. 4. Hypertension with chronic kidney disease. Stable. 5. Diabetes mellitus. 6. Right-sided hydronephrosis secondary to nephrolithiasis status post cystoscopy with double-J stent placement on November 24. 7. Metabolic acidosis secondary to acute kidney injury. Better. 8. Hypomagnesemia from poor intake and postobstructive diuresis. Replace. Better. Plan: Hep-Lock IV fluids. Continue ATUL inhibitor for now as renal function improving and blood pressure not low. Avoid nephrotoxins. Continue to monitor renal function and urine output. Add oral magnesium oxide. Patient was encouraged to follow up outpatient for CKD care.
[2020-11-27] MEDS ORDERED: MAGNESIUM OXIDE 400 MG TAB PO SCH (09:15)
[2020-11-27 11:58] LABS: Glucose,Whole Blood 121 mg/dL (75-99)
--- NOTE | 2020-11-27 16:11 | PN ---
PROGRESS NOTE DATE OF SERVICE: 11/27/2020 REASON FOR FOLLOWUP: Complicated UTI. INTERVAL HISTORY: The patient is afebrile. The patient is feeling better, breathing comfortably. Denies having any chest pain, shortness of breath or cough. No abdominal pain or diarrhea. PHYSICAL EXAMINATION: Blood pressure 153/96 with a pulse of 60, temperature 97.6. He is 98% on room air. GENERAL DESCRIPTION: General description is a middle-aged female up in the bed in no distress. RESPIRATORY SYSTEM: Unlabored breathing. Clear to auscultation anteriorly. HEART: S1, S2. Regular rate and rhythm. ABDOMEN: Soft. No tenderness. LABS: Hemoglobin is 12.9, white count 6.6, BUN of 16, creatinine 1.67. DIAGNOSTIC IMPRESSION AND PLAN: Patient with a complicated urinary tract infection, status post cystoscopy and stenting of the right kidney in this patient with overall improvement. Kidney function has improved. Culture has been negative for any resistant pathogen. She will be able to finish therapy with a short course of oral Ceftin or Cipro on discharge and close outpatient followup. MMODL / IJN: [id number] /
[2020-11-27 16:16] VITALS: BP 146/91; PULSE 78; TEMP 98.2
[2020-11-27 16:58] LABS: Glucose,Whole Blood 169 mg/dL (75-99)
--- NOTE | 2020-11-27 17:48 | P.PN ---
Progress Note - Text Progress Note Date: 11/27/20 The patient has no complaints at this time. She is afebrile. Her serum creatinine level has decreased to 1.67. She is urologically stable for discharge and will follow up with Dr. Wolff. Arrangements will be made at that time for her to undergo stent removal and ureteroscopic removal of her calculus.
--- NOTE | 2020-11-27 18:56 | PN ---
PROGRESS NOTE DATE OF SERVICE: 11/26/2020 50-year-old white female with acute renal failure secondary to acute tubular necrosis, acute kidney injury due to hydronephrosis of severe nature on the right side, UTI, treated with IV antibiotics and fluid rehydration and ureteral stent placed. The patient did well. Possible discharge home tomorrow. Creatinine continues to improve from 3.3 down to 2.4. Abdomen is soft, nontender. Cardiovascular: S1, S2. Lungs clear. GI soft. Vital signs reviewed. ASSESSMENT: As mentioned above. PLAN: Discharge home tomorrow. MMODL / IJN: [id number] /
[2020-11-27] MEDS ORDERED: CIPROFLOXACIN HCL 500 MG TAB PO SCH (21:00)
--- NOTE | 2021-01-23 11:19 | DS ---
DISCHARGE SUMMARY DATE OF ADMISSION: 11/23/2020 DATE OF DISCHARGE: 11/27/2020. DISCHARGE MEDICATIONS: 1. Requip 1 mg at night. 2. Lipitor 20 mg daily. 3. Cipro 500 b.i.d. for 7 days. 4. Adipex 1 daily. 5. Lisinopril 10 mg daily. 6. Lexapro 10 mg daily. 7. Tramadol 50 mg b.i.d. p.r.n. 8. Zofran 4 mg q.4 hours p.r.n. 9. Omeprazole 20 mg daily. 10. 14 mg daily. CONDITION: Stable. PROGNOSIS: Guarded. Ambulate as tolerated. This 50-year-old white female was admitted with a UTI, prerenal renal azotemia, obstructive uropathy, for which ureteral stent was placed. Broad-spectrum antibiotics for pyelonephritis were given. Prerenal azotemia was secondary to obstructive uropathy, which was treated with a urethral stent and IV antibiotics, IV fluids. Prognosis guarded. Follow up in the next 24 to 48 hours if she is stable for discharge. Cleared by Urology and Infectious Disease. MMODL / IJN: [id number] /
== END 2020-11-27 18:12 | disposition home or self-care (01) | DRG 660 ==
LOC: EC 17:11 → 3SCARD 21:08
PROVIDERS: ADMIT Family Medicine; ATTEND Family Medicine
PROC: 0T768DZ Dilation of Right Ureter with Intraluminal Device, Via Natural or Artificial Opening Endoscopic (ICD-10-PCS; principal; 2020-11-24 09:15)
DX: N13.6 Pyonephrosis (principal); Q60.0 Renal agenesis, unilateral; E87.2 Acidosis; N17.0 Acute kidney failure with tubular necrosis; E11.22 Type 2 diabetes mellitus with diabetic chronic kidney disease; K76.0 Fatty (change of) liver, not elsewhere classified; N18.32 Chronic kidney disease, stage 3b; I12.9 Hypertensive chronic kidney disease with stage 1 through stage 4 chronic kidney disease, or unspecified chronic kidney disease; G25.81 Restless legs syndrome; K21.9 Gastro-esophageal reflux disease without esophagitis; E78.5 Hyperlipidemia, unspecified; K76.9 Liver disease, unspecified; E66.9 Obesity, unspecified; Z68.33 Body mass index [BMI] 33.0-33.9, adult; F32.9 Major depressive disorder, single episode, unspecified; K80.20 Calculus of gallbladder without cholecystitis without obstruction; E83.42 Hypomagnesemia; E04.2 Nontoxic multinodular goiter; F17.210 Nicotine dependence, cigarettes, uncomplicated; Z79.899 Other long term (current) drug therapy; Z87.442 Personal history of urinary calculi; Z87.820 Personal history of traumatic brain injury; Z88.2 Allergy status to sulfonamides; Z98.891 History of uterine scar from previous surgery; Z98.51 Tubal ligation status; Z96.641 Presence of right artificial hip joint; Z87.39 Personal history of other diseases of the musculoskeletal system and connective tissue; Z98.890 Other specified postprocedural states; Z82.49 Family history of ischemic heart disease and other diseases of the circulatory system; Z83.3 Family history of diabetes mellitus; Z80.1 Family history of malignant neoplasm of trachea, bronchus and lung
CPT/HCPCS: 36415; 74176; 80048; 80053; 81001; 81025; 83605; 83690; 83735; 85025; 87040; 87086; 96361; 96374; 96375; 99285

== ENCOUNTER 2020-12-13 09:05 | Day surgery (SDC) | payer BC ==
[2020-12-11 10:48] VITALS: BMI 33.6
--- NOTE | 2020-12-12 13:29 | P.GSHP ---
History of Present Illness H&P Date: 12/12/20 50 yo female who recently was in the hospital with a large right ureteral stone, renal insufficiency and probable uti with sepsis. She had an emergent stent placed for a very impacted stone[4.8 stent] She now comes for right ureteroscopy with laser lithotripsy, stone and possible stent removal - Constitutional Constitutional: Denies chills, Denies fever - EENT Eyes: denies blurred vision, denies pain Ears, nose, mouth and throat: Denies headache, Denies sore throat - Cardiovascular Cardiovascular: Denies chest pain, Denies shortness of breath - Respiratory Respiratory: Denies cough, Denies 7 - Gastrointestinal Gastrointestinal: Denies abdominal pain, Denies diarrhea, Denies nausea, Denies vomiting - Genitourinary (Female) Genitourinary: Denies dysuria, Denies hematuria - Genitourinary (Male) Genitourinary: Denies dysuria, Denies hematuria - Musculoskeletal Musculoskeletal: Denies myalgias - Integumentary Integumentary: Denies pruritus, Denies rash - Neurological Neurological: Denies numbness, Denies weakness - Psychiatric Psychiatric: Denies anxiety, Denies depression - Endocrine Endocrine: Denies fatigue, Denies weight change Past Medical History Past Medical History: Diabetes Mellitus, GERD/Reflux, Hyperlipidemia, Hypertension, Liver Disease, Musculoskeletal Disorder, Pneumonia, Thyroid Disorder Additional Past Medical History / Comment(s): HEAD INJURY/concussion due to a fall at age 6, hx kidney stones, thyroid nodules, Degenerative Disc Disease, restless leg syndrome, gallstones, fatty liver. History of Any Multi-Drug Resistant Organisms: None Reported Past Surgical History: Section, Joint Replacement, Orthopedic Surgery, Tubal Ligation Additional Past Surgical History / Comment(s): Section X1, bilateral nephrostolithotomy, nephrostomy tubes/later removal, right hip replacement, parathyroid biopsy, bilateral carpel tunnel surgery. Past Anesthesia/Blood Transfusion Reactions: No Reported Reaction Additional Past Anesthesia/Blood Transfusion Reaction / Comment(s): Claustrophobia. Past Psychological History: Depression Additional Psychological History / Comment(s): Claustrophobia. Smoking Status: Current some day smoker Past Alcohol Use History: None Reported Additional Past Alcohol Use History / Comment(s): Started smoking at age 15, smokes 1 ppd. Past Drug Use History: None Reported - Past Family History Father Family Medical History: Deep Vein Thrombosis (DVT) Additional Family Medical History / Comment(s): Quadruple Bypass. Sister(s) Family Medical History: Diabetes Mellitus Mother Family Medical History: Cancer Additional Family Medical History / Comment(s): LUNG Cancer. Medications and Allergies Home Medications Medication Instructions Recorded Confirmed Type Atorvastatin [Lipitor] 20 mg PO HS 09/16/18 12/11/20 History rOPINIRole HCL [Requip] 1 mg PO HS 09/16/18 12/11/20 History Escitalopram [Lexapro] 10 mg PO QAM 11/23/20 12/11/20 History Omeprazole Magnesium [PriLOSEC OTC] 20 mg PO HS 11/23/20 12/11/20 History Ondansetron [Zofran ODT] 4 mg PO Q4H PRN 11/23/20 12/11/20 History Phentermine HCl [Adipex-P] 37.5 mg PO DAILY 11/23/20 12/11/20 History lisinopriL 10 mg PO QAM 11/23/20 12/11/20 History Semaglutide [Rybelsus] 14 mg PO DAILY 11/24/20 12/11/20 History Allergies Allergy/AdvReac Type Severity Reaction Status Date / Time Sulfa (Sulfonamide AdvReac Nausea & Verified 12/11/20 10:34 Antibiotics) Vomiting sulfamethoxazole AdvReac Nausea & Verified 12/11/20 10:34 [From Bactrim] Vomiting trimethoprim [From Bactrim] AdvReac Nausea & Verified 12/11/20 10:34 Vomiting Surgical - Exam - General well developed, well nourished, no distress - Eyes PERRL - ENT no hearing loss - Neck trachea midline - Respiratory normal expansion, normal respiratory effort - Cardiovascular Rhythm: regular - Abdomen Abdomen: soft, non tender - Neurologic normal coordination, normal sensation - Musculoskeletal normal gait, normal posture - Psychiatric oriented to time, oriented to person, oriented to place, speech is normal, memory intact Results - Imaging Abdominal x-ray: report reviewed, image reviewed CT scan - abdomen: report reviewed, image reviewed CT scan - pelvis: report reviewed, image reviewed Assessment and Plan Assessment: Impression: right ureteral stone sp stent placement. Renal insufficiency due to obstruction and a solitary functioning right kidney. DM Plan: right ureteroscopy with laser lithotripsy with stone and possible stent removal
[~2020-12-13 09:05] MED LIST changes: -ACETAMINOPHEN TAB 500 MG TAB PO PRN; +AMPICILLIN 1,000 MG in SODIUM CHLORIDE 0.9% 50 ML IVPB PRN; +GENTAMICIN 110 MG in SODIUM CHLORIDE 0.9% 100 ML IVPB PRN; -HEPARIN SODIUM,PORCINE 5,000 UNIT/ML 1 ML VIAL SQ PRN; +HYDROmorphone 0.5 MG/0.5 ML SYRINGE IVP PRN
--- NOTE | 2020-12-13 09:51 | XR ---
EXAMINATION TYPE: XR KUB DATE OF EXAM: 12/13/2020 9:24 AM CLINICAL HISTORY: Presurgical study. Right renal calculi. TECHNIQUE: Two Upright KUB images of the abdomen are obtained. COMPARISON: CT abdomen and pelvis November 23, 2020 FINDINGS: New right double-J ureter stent. Persistent large 1.5 cm distal right ureter calculus right pelvis. Scattered 4-5 right renal calculi up to 16 mm lower pole level redemonstrated. Scattered lef t-sided pelvic phleboliths. Overall nonobstructive bowel gas pattern. Metallic hardware from right hip arthroplasty redemonstrate d. Lung bases are clear. Impression: As above.
[2020-12-13 10:16] LABS: Glucose,Whole Blood 225 mg/dL (75-99)
[2020-12-13] MEDS ORDERED: PROPOFOL 10 MG/ML 20 ML VIAL IV ONE (10:29)
[2020-12-13] MEDS ORDERED: fentaNYL (PF) 50 MCG/ML 2 ML AMP ONE (10:29)
[2020-12-13] MEDS ORDERED: ROCURONIUM 10 MG/ML (5 ML VIAL) IV ONE (10:29)
[2020-12-13] MEDS ORDERED: MIDAZOLAM 2 MG/2 ML VIAL ONE (10:29)
[2020-12-13] MEDS ORDERED: SUCCINYLCHOLINE CHLORIDE 100 MG/5 ML SYR IV ONE (10:29)
[2020-12-13] MEDS ORDERED: LIDOCAINE 1% INJ 10MG/ML (20 ML MDV) ONE (10:29)
[2020-12-13 11:29] VITALS: TEMP 97.4
--- NOTE | 2020-12-13 11:30 | P.OP ---
Date of Procedure: 12/13/20 Preoperative Diagnosis: , right ureteral stone, status post right stent placement, solitary functioning right kidney Postoperative Diagnosis: same Procedure(s) Performed: cystoscopy, removal double-J catheter right, right ureteroscopy with laser lithotripsy Anesthesia: MANISH Surgeon: Jose Wolff Estimated Blood Loss (ml): 0 Pathology: other (stone) Condition: stable Disposition: PACU Indications for Procedure: the patient is 50. She has a solitary functioning right kidney. She obstructed a distal 1.5 cm right ureteral stone. A double-J catheter is placed. She now comes for formal stone and stent removal Description of Procedure: patient is brought to the operating suite. She is given a general anesthesia. She's placed lithotomy position with a sterile prep and drape. The stone was seen fluoroscopically. Cystoscopy Foroblique lens and 21-Faroese sheath identifies a normal urethra. The normal bladder mucosa. A right double-J catheters identified and grasped and pulled to the urethral meatus. Through the double-J catheter no 35 wires passed up into the kidney. Alongside the wire in the right ureter the semirigid scope was passed to the stone in the distal right ureter. It is large. With the 270 laser probe and 8 W of energy the stone was broken into tiny pieces flushed and basketed out of the distal ureter. At the end of the procedure there is no remaining stone. There is not enough edema to replace a stent. The bladder is drained stone fragments were collected the patient is awakened and returned recovery room good condition Impression successful right ureteroscopy and laser lithotripsy as well as stent removal. The patient will be discharged home upon recovery and found the office in one week
--- NOTE | 2020-12-13 11:34 | FL ---
EXAMINATION TYPE: FL guidance operating room DATE OF EXAM: 12/13/2020 CLINICAL HISTORY: Right ureter stone. TECHNIQUE: Fluoroscopy. COMPARISON: None. FINDINGS: Fluoroscopic guidance was provided during right urogram procedure performed by Dr. Wolff. A total of 3 seconds of fluoroscopic time was utilized during the procedure and 1 spot images was ac quired. Single image shows access at right UVJ. IMPRESSION: As Above.
[2020-12-13 11:36] VITALS: RESP 16
[2020-12-13] MEDS ORDERED: HYDROcodone/APAP 5-325MG 1 EACH TAB PO ONE (12:44)
[2020-12-13] MEDS ORDERED: HYDROcodone/APAP 5-325MG 1 EACH TAB ONE (12:45)
[2020-12-13 14:04] VITALS: BP 106/71; PULSE 76
== END 2020-12-13 13:31 | disposition home or self-care (01) ==
LOC: OR 09:05
PROVIDERS: ATTEND Urology
DX: N20.1 Calculus of ureter (principal); E11.9 Type 2 diabetes mellitus without complications; K21.9 Gastro-esophageal reflux disease without esophagitis; E78.5 Hyperlipidemia, unspecified; I10 Essential (primary) hypertension; F17.210 Nicotine dependence, cigarettes, uncomplicated; F40.240 Claustrophobia; G25.81 Restless legs syndrome; E04.1 Nontoxic single thyroid nodule; Z87.442 Personal history of urinary calculi; F32.9 Major depressive disorder, single episode, unspecified; Z79.899 Other long term (current) drug therapy; Z88.2 Allergy status to sulfonamides; K76.0 Fatty (change of) liver, not elsewhere classified
CPT/HCPCS: 82365; 74018; 52353; C1769; J2250; J1100; J2405; J2001; J3010; J1580; J0290; J0330; J2704

== ENCOUNTER → 2021-06-14 | Outpatient (CLI) | payer BC ==
[2021-06-14 18:20] LABS: African American GFR (CKD) 55.4 (60.0-200.0); Blood Urea Nitrogen 10.1 mg/dL (9.0-27.0); Non-African American GFR(CKD) 47.8 (60.0-200.0)
[2021-06-14 18:21] LABS: Anion Gap 11.4 mmol/L (10.00-18.00); Carbon Dioxide 23.6 mmol/L (20.0-27.5); Potassium 4.6 mmol/L (3.5-5.5)
[2021-06-15 13:40] LABS: Urine Creatinine 46.8 mg/dL (28.0-217.0)
== END | disposition home or self-care (01) ==
LOC: LABWHC1 11:58
PROVIDERS: ATTEND Family Medicine
DX: E11.9 Type 2 diabetes mellitus without complications (principal)
CPT/HCPCS: 36415; 80051; 82043; 82565; 82570; 83036; 84520

== ENCOUNTER 2021-12-20 18:22 | Emergency (ER) | payer OTHER ==
[2021-12-20 18:46] VITALS: BP 129/80; PULSE 98; RESP 18; TEMP 97.8
--- NOTE | 2021-12-20 18:59 | XR ---
EXAMINATION TYPE: XR hand complete LT DATE OF EXAM: 12/20/2021 6:52 PM INDICATION: Patient age:Female; 51 years old; Reason for study: injury; [facility]. COMPARISON: Left finger radiographs 11/14/2017. TECHNIQUE: Frontal, lateral and oblique views of the left hand were obtained. FINDINGS: Normal alignment of the visualized joints. Acute minimally displaced fracture at the base o f the fifth distal phalanx best appreciated on the oblique and lateral views. There is associated sof t tissue edema. No radiopaque foreign bodies. IMPRESSION: Acute minimally displaced fracture of the base of the fifth distal phalanx.
[2021-12-20] MEDS ORDERED: KETOROLAC 15 MG/ML 1 ML VIAL IM STA (19:55)
--- NOTE | 2021-12-20 19:58 | ED ---
Upper Extremity HPI - General Chief Complaint: Extremity Injury, Upper Stated Complaint: Left pinky finger injury, [facility] Time Seen by Provider: 12/20/21 19:15 Source: patient Mode of arrival: ambulatory Limitations: no limitations - History of Present Illness Initial Comments: Patient is a 51-year-old female presenting with chief complaint of left fifth fi nger pain. 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 This resulted in her falling and jamming her fifth digit on the concrete. He is complaining of pain with range of motion as well as swelling and bruising. She denies any numbness, tingling, weakness. - Related Data Home Medications Medication Instructions Recorded Confirmed Atorvastatin [Lipitor] 20 mg PO HS 09/16/18 07/05/21 rOPINIRole HCL [Requip] 1 mg PO HS 09/16/18 07/05/21 Phentermine HCl [Adipex-P] 37.5 mg PO DAILY 11/23/20 07/05/21 Insulin Glargine/Lixisenatide 20 units SQ DAILY 07/05/21 07/05/21 [Soliqua 100 Unit-33 Mcg/ml Pen] Varenicline Tartrate 0.5 mg PO BID 07/05/21 07/05/21 Allergies Allergy/AdvReac Type Severity Reaction Status Date / Time Sulfa (Sulfonamide AdvReac Nausea & Verified 12/20/21 18:47 Antibiotics) Vomiting sulfamethoxazole AdvReac Nausea & Verified 12/20/21 18:47 [From Bactrim] Vomiting trimethoprim [From Bactrim] AdvReac Nausea & Verified 12/20/21 18:47 Vomiting Review of Systems ROS Statement: Those systems with pertinent positive or pertinent negative responses have been documented in the HPI. ROS Other: All systems not noted in ROS Statement are negative. Past Medical History Past Medical History: Diabetes Mellitus, GERD/Reflux, Hyperlipidemia, Hypertension, Liver Disease, Musculoskeletal Disorder, Pneumonia, Thyroid Disorder Additional Past Medical History / Comment(s): HEAD INJURY/concussion due to a fall at age 6, hx kidney stones, thyroid nodules, Degenerative Disc Disease, restless leg syndrome, gallstones, fatty liver. History of Any Multi-Drug Resistant Organisms: None Reported Past Surgical History: Section, Joint Replacement, Orthopedic Surgery, Tubal Ligation Additional Past Surgical History / Comment(s): Section X1, bilateral nephrostolithotomy, nephrostomy tubes/later removal, right hip replacement, parathyroid biopsy, bilateral carpel tunnel surgery. Past Anesthesia/Blood Transfusion Reactions: No Reported Reaction Additional Past Anesthesia/Blood Transfusion Reaction / Comment(s): Claustrophobia. Past Psychological History: Depression Smoking Status: Current some day smoker Past Alcohol Use History: None Reported Past Drug Use History: None Reported - Past Family History Father Family Medical History: Deep Vein Thrombosis (DVT) Additional Family Medical History / Comment(s): Quadruple Bypass. Sister(s) Family Medical History: Diabetes Mellitus Mother Family Medical History: Cancer Additional Family Medical History / Comment(s): LUNG Cancer. General Exam Limitations: no limitations General appearance: alert, in no apparent distress Head exam: Present: atraumatic, normocephalic, normal inspection Eye exam: Present: normal appearance, PERRL, EOMI. Absent: scleral icterus, conjunctival injection, periorbital swelling Neck exam: Present: normal inspection Extremities exam: Present: other (Distal portion of left fifth digit is remarkable for swelling and bruising, tenderness on palpation, pain with range of motion) Neurological exam: Present: alert, oriented X3, CN II-XII intact Psychiatric exam: Present: normal affect, normal mood Skin exam: Present: warm, dry, intact, normal color. Absent: rash Course Vital Signs 12/20/21 18:44 Temperature 97.8 F Pulse Rate 98 Respiratory 18 Rate Blood Pressure 129/80 O2 Sat by Pulse 98 Oximetry Medical Decision Making - Medical Decision Making Patient is a 51-year-old female presenting with chief complaint of left fifth digit pain. Patient fell while working at a jail, jamming her pinky into the concrete. On examination there is some tenderness and swelling to the distal end of the digit. X-ray shows acute minimally displaced fracture of the base of the fifth distal phalanx. Patient is provided with a splint and instructed to follow-up with orthopedics. Educated on supportive treatment with rest, ice, elevation as well as Motrin and Tylenol. Follow-up with PCP. Report back to ER with any new or worsening symptoms. Discussed return parameters and answered all questions. Patient conveyed verbal understanding and agreed to the plan. I discussed this case in detail with my attending Dr. Marcano. Disposition Clinical Impression: Fracture of distal phalanx of finger Disposition: HOME SELF-CARE Condition: Good Instructions (If sedation given, give patient instructions): Finger Fracture (ED) Additional Instructions: Follow-up with PCP and orthopedics. Report back to ER if any new or worsening symptoms. Take Motrin and Tylenol as needed for pain control. Rest, ice, elevate the hand. Is patient prescribed a controlled substance at d/c from ED?: No Referrals: Ramiro Chávez MD [Primary Care Provider] - 1-2 days Melinda Montenegro DO [Doctor of Osteopathic Medicine] - 1-2 days Time of Disposition: 19:57
== END 2021-12-20 20:31 | disposition home or self-care (01) ==
LOC: EC 18:22
DX: S62.637A Displaced fracture of distal phalanx of left little finger, initial encounter for closed fracture (principal); E11.9 Type 2 diabetes mellitus without complications; K21.9 Gastro-esophageal reflux disease without esophagitis; E78.5 Hyperlipidemia, unspecified; I10 Essential (primary) hypertension; E07.9 Disorder of thyroid, unspecified; F32.A Depression, unspecified; F17.200 Nicotine dependence, unspecified, uncomplicated; Z88.2 Allergy status to sulfonamides; Z79.4 Long term (current) use of insulin; Z79.899 Other long term (current) drug therapy; W23.0XXA Caught, crushed, jammed, or pinched between moving objects, initial encounter
CPT/HCPCS: 73130; 99283; 96372; J1885

== ENCOUNTER → 2023-08-07 | Outpatient (CLI) | payer OTHER ==
--- NOTE | 2023-08-08 09:56 | US ---
EXAMINATION TYPE: US thyroid st tissue head/neck DATE OF EXAM: 08/07/2023 COMPARISON: 12/28/2019 CLINICAL INDICATION: Female, 52 years old with history of E07.9 DISORDER OF THYROID, UNSPECIFIED; Not on thyroid meds. Hx thyroid FNA. Hx goiter. GLAND SIZE: Right Lobe: 8.5 x 4.3 x 3.3 cm Overall Parenchyma: heterogeneous Left Lobe: 8.7 x 3.5 x 3.3 cm Overall Parenchyma: heterogeneous Isthmus Thickness: 2.9 cm NODULES- Bilateral enlarged and innumerable nodules visualized bilaterally. Very difficult to dist inguish individuality RIGHT: # of nodules measured on right: 1 1. 2.1 X 1.9 x 1.2 cm, upper , mixed cystic and solid, isoechoic nodule, which is wider than tall, with smooth margins, without echogenic foci. Prior size: Not measured LEFT: # of nodules measured on left: 0 - 1.7 cm superior calcification seen ISTHMUS: # of nodules measured in the isthmus: 0 Bilateral neck scanned, no evidence of lymphadenopathy. IMPRESSION: 1. Marked multinodular goiter which is essentially stable compared to previous. 2. Dominant nodule in the right gland is essentially unchanged compared to previous and is consistent with a TR2 nodule. 3. Markedly enlarged isthmus versus isthmus nodule essentially unchanged compared to previous. If not already performed, fine-needle aspiration of the isthmus would be recommended, see impression #4. 4. Correlate with 3 prior thyroid fine needle aspirations performed on 01/28/2020. 2017 ACR TI-RADS LEVEL: 2 *Highest TI-RADS level nodule reported
== END | disposition home or self-care (01) ==
LOC: RADUSWWP 15:40
PROVIDERS: ATTEND Family Medicine
DX: E04.2 Nontoxic multinodular goiter (principal)
CPT/HCPCS: 76536

== ENCOUNTER → 2023-09-25 | Outpatient (CLI) | payer BC ==
--- NOTE | 2023-09-25 15:42 | CTL ---
EXAMINATION TYPE: CT Low Dose Lung DATE OF EXAM ORDERED: 09/25/2023 HISTORY: 52-year-old female Z12.2, F17.201, current smoker with 40 pack-year history. Lung cancer scr eening CT DLP: 115.[address] CTDI: 3.7 mGy Automated exposure control for dose reduction was used. SCREENING VISIT: Radiograph 05/16/[address] 09/17/2018 COMPARISON: 09/17/2018 TECHNIQUE: Low dose computed tomography scan was performed through the chest at 1 mm thick sections a nd reconstructed images in multiple planes at 1 mm and [address] DIAGNOSTIC QUALITY: Satisfactory FINDINGS: Severe goitrous enlargement of the thyroid gland measuring up to at least 9.1 cm wide and 7.4 cm AP. Heart upper limits of normal size with trace pericardial fluid. Aorta normal caliber with conventional shortness of branching anatomy. Scattered nonenlarged mediastinal lymph nodes. No thoracic lymphadenopathy by CT size criteria. Some mosaic attenuation suggests small airways disease. Scattered [id number] diffuse bronchial wall thickening. Minimal emphysematous change. Strandy areas of atelectasis in the lower lungs. No co nsolidation or pleural effusion. Stable 3 mm anterior right midlung pulmonary nodule, axial image 110. 4 mm anterior right midlung pulmonary nodule, axial image 90, not seen previously. 5 mm left lower lobe pulmonary nodule, axial image 181. Not seen on 09/17/2018. Visualized upper abdomen shows mild hepatic steatosis with mildly diminished density. Cholecystectomy clips. Mild degenerative disc disease mid to lower thoracic spine. IMPRESSION: 1. LungRADS 3, probably benign. A few pulmonary nodules measuring up to 5 mm. As a couple of these we re not seen on the 2019 exam, six-month follow-up recommended. 2. Mosaic attenuation along with bronchial wall thickening suggesting small airways disease. 3. Severe goiterous enlargement of the thyroid gland up to 9.1 cm wide redemonstrated. Consider endoc rinology referral. CT LUNG RAD AND CT CHEST RECOMMENDATION: Lung-Rad 3 Probably Benign: 6 month follow-up LDCT. S Modifier (other clinically significant findings): None
--- NOTE | 2023-09-29 08:39 | MM ---
Reason for Exam: Screening (asymptomatic). Last mammogram was performed 10 year(s) and 10 month(s) ago. Patient History: Menarche at age 11. First Full-Term at age 19. Postmenopausal. Risk Values: Yadi 5 year model risk: 0.8%. NCI Lifetime model risk: 6.9%. Prior Study Comparison: 10/30/2012 Bilateral Screening Mammogram, [facility]. Tissue Density: The breasts are heterogeneously dense, which may obscure small masses. Findings: Analyzed By CAD. There is no suspicious group of microcalcifications or new suspicious mass in either breast. Benign-appearing calcifications. Overall Assessment: Benign, BI-RAD 2 Management: Screening Mammogram of both breasts in 1 year. . Patient should continue monthly self-breast exams. A clinical breast exam by your physician is recommended on an annual basis. This exam should not preclude additional follow-up of suspicious palpable abnormalities. Note on Yadi scores and lifetime risk: 1. A Yadi score greater than 3% is considered moderate risk. If this is the case, consider specialist referral to assess eligibility for a risk reducing agent. 2. If overall lifetime risk for the development of breast cancer is 20% or higher, the patient may qualify for future screening with alternating mammogram and breast MRI. Electronically signed and approved by: Ramiro Lugo M.D. Radiologis
== END | disposition home or self-care (01) ==
LOC: RADMAMWWP 11:48
PROVIDERS: ATTEND Family Medicine
DX: Z12.31 Encounter for screening mammogram for malignant neoplasm of breast (principal); Z12.2 Encounter for screening for malignant neoplasm of respiratory organs; F17.210 Nicotine dependence, cigarettes, uncomplicated; R91.8 Other nonspecific abnormal finding of lung field; Z78.0 Asymptomatic menopausal state; J98.09 Other diseases of bronchus, not elsewhere classified; E04.9 Nontoxic goiter, unspecified
CPT/HCPCS: 71271; 77067

== ENCOUNTER → 2023-10-09 | Outpatient (CLI) | payer BC ==
[2023-10-09 11:13] LABS: African American GFR (CKD) 53 (>60 ml/min/1.73 sqM); Blood Urea Nitrogen 14 mg/dL (7-17); Non-African American GFR(CKD) 46 (>60 ml/min/1.73 sqM)
--- NOTE | 2023-10-09 12:04 | CT ---
EXAMINATION TYPE: CT soft tissue neck w con DATE OF EXAM: 10/09/2023 11:39 AM COMPARISON: None HISTORY: Nontoxic Goiter right side of neck. CT DLP: 315.6 mGycm Automated exposure control for dose reduction was used. CONTRAST: CT scan of the neck is performed following with IV Contrast, patient injected with 80 mL of Isovue 30 0. Axial images are obtained, coronal and sagittal reformatted images are reviewed. FINDINGS: FINDINGS: There are no supraclavicular lymph nodes. The thyroid gland is markedly enlarged and heterogeneous with scattered dense calcifications within s mall focal hypodense nodules. Correlation with thyroid ultrasound is recommended. A portion of the th yroid is substernal. The larynx including the cricoid, arytenoid and thyroid cartilages as well as the vocal cords are nor mal and symmetric. The tongue base, epiglottis, aryepiglottic folds, piriform sinuses and vallecula are normal and symme tric. The parotid and submandibular glands are normal and symmetric without focal mass or gross enlargement . There is no pharyngeal or parapharyngeal soft tissue mass or enhancement The great vessels of the neck are normal. There is no adenopathy within the neck. There is no soft tissue swelling, inflammation or abscess. Visualized paranasal sinuses are well aerated. IMPRESSION: Marked goiter as described above. No other significant abnormality seen..
== END | disposition home or self-care (01) ==
LOC: RADCTMAIN 10:36
PROVIDERS: ATTEND Surgery
DX: E04.9 Nontoxic goiter, unspecified (principal)
CPT/HCPCS: 82565; 84520; 70491; 36415; Q9967

== ENCOUNTER → 2023-12-18 | Outpatient (CLI) | payer BC ==
[2023-12-18 15:17] LABS: ALT 19 U/L (8-44); AST 18 U/L (13-35); Albumin 4.5 g/dL (3.8-4.9); Albumin/Globulin Ratio 1.45 Ratio (1.60-3.17); Alkaline Phosphatase 114 U/L (41-126); BUN/Creat Ratio 12.08 Ratio (12.00-20.00); Blood Urea Nitrogen 14.5 mg/dL (9.0-27.0); Calcium 9.9 mg/dL (8.7-10.3); Chloride 104 mmol/L (96-109); Globulin 3.1 g/dL (1.6-3.3); Glucose 139 mg/dL (70-110); Potassium 4.5 mmol/L (3.5-5.5); Sodium 141 mmol/L (135-145); Total Bilirubin 0.5 mg/dL (0.3-1.2); Total Protein 7.6 g/dL (6.2-8.2)
[2023-12-18 15:30] LABS: Basophils # (A) 0.05 X 10*3/uL (0.00-0.10); Basophils % (A) 0.5 %; Eosinophils # (A) 0.06 X 10*3/uL (0.04-0.35); Eosinophils % (A) 0.6 %; HCT 42.8 % (37.2-46.3); HGB 13.6 g/dL (12.0-15.0); Lymphocytes # (A) 1.96 X 10*3/uL (0.90-5.00); Lymphocytes % (A) 21.1 %; MCH 28.6 pg (27.0-32.0); MCHC 31.8 g/dL (32.0-37.0); MCV 90.1 FL (80.0-97.0); Monocytes # (A) 0.51 X 10*3/uL (0.20-1.00); Monocytes % (A) 5.5 %; NRBC Per 100 WBC 0 X 10*3/uL (0.00-0.01); Platelet Count 246 X 10*3/uL (140-440); RBC 4.75 X 10*6/uL (4.10-5.20); RDW 12.7 % (11.5-14.5); WBC 9.31 X 10*3/uL (4.50-10.00)
== END | disposition home or self-care (01) ==
LOC: LABWHC1 08:53
PROVIDERS: ATTEND Family Medicine
DX: E11.9 Type 2 diabetes mellitus without complications (principal); Z79.899 Other long term (current) drug therapy
CPT/HCPCS: 36415; 80053; 82043; 82570; 83036; 85025

== ENCOUNTER → 2024-04-30 | Outpatient (CLI) | payer BC ==
[2024-04-30 15:07] LABS: Basophils # (A) 0.04 X 10*3/uL (0.00-0.10); Basophils % (A) 0.7 %; Eosinophils # (A) 0.08 X 10*3/uL (0.04-0.35); Eosinophils % (A) 1.4 %; HCT 43.9 % (37.2-46.3); HGB 13.8 g/dL (12.0-15.0); Lymphocytes # (A) 1.88 X 10*3/uL (0.90-5.00); Lymphocytes % (A) 32.4 %; MCH 28.5 pg (27.0-32.0); MCHC 31.4 g/dL (32.0-37.0); MCV 90.7 FL (80.0-97.0); Mean Platelet Volume 10.4 FL (9.5-12.2); Monocytes % (A) 6.9 %; NRBC Per 100 WBC 0 X 10*3/uL (0.00-0.01); Neutrophils % (A) 58.4 %; Platelet Count 231 X 10*3/uL (140-440); RBC 4.84 X 10*6/uL (4.10-5.20); RDW 11.9 % (11.5-14.5); WBC 5.81 X 10*3/uL (4.50-10.00)
[2024-04-30 15:20] LABS: ALT 16 U/L (8-44); AST 19 U/L (13-35); Albumin 4.4 g/dL (3.8-4.9); Albumin/Globulin Ratio 1.42 Ratio (1.60-3.17); Alkaline Phosphatase 118 U/L (41-126); BUN/Creat Ratio 12.83 Ratio (12.00-20.00); Blood Urea Nitrogen 15.4 mg/dL (9.0-27.0); Calcium 9.6 mg/dL (8.7-10.3); Carbon Dioxide 26.5 mmol/L (21.6-31.8); Chloride 105 mmol/L (96-109); Chol/HDL Ratio 2.47 Ratio; Globulin 3.1 g/dL (1.6-3.3); Glucose 106 mg/dL (70-110); Potassium 4.3 mmol/L (3.5-5.5); Sodium 142 mmol/L (135-145); Total Bilirubin 0.4 mg/dL (0.3-1.2); Total Protein 7.5 g/dL (6.2-8.2); VLDL Calculation 19.94 mg/dL (5.00-40.00)
== END | disposition home or self-care (01) ==
LOC: LABWHC1 11:12
PROVIDERS: ATTEND Family Medicine
DX: Z00.00 Encounter for general adult medical examination without abnormal findings (principal); I10 Essential (primary) hypertension; Z79.899 Other long term (current) drug therapy
CPT/HCPCS: 36415; 80053; 80061; 83036; 84443; 85025

== ENCOUNTER → 2024-06-01 | Outpatient (CLI) | payer BC ==
[2024-06-01 16:45] LABS: T4, Free (Free Thyroxine) 1.49 ng/dL (0.80-1.80)
[2024-06-01 16:52] LABS: Thyroid Peroxidase Antibodies 10.9 U/mL (0.0-33.0)
== END | disposition home or self-care (01) ==
LOC: LABWHC1 10:13
PROVIDERS: ATTEND Family Medicine
DX: I10 Essential (primary) hypertension (principal); E11.9 Type 2 diabetes mellitus without complications; E04.2 Nontoxic multinodular goiter; Z79.899 Other long term (current) drug therapy
CPT/HCPCS: 36415; 84432; 84439; 84443; 84481; 86376; 86800

== ENCOUNTER 2024-08-09 12:02 | Emergency (ER) | payer BC ==
[2024-08-09 12:09] VITALS: TEMP 98.4
--- NOTE | 2024-08-09 13:04 | ED ---
Headache HPI - General Chief Complaint: Headache Stated Complaint: Headache,Pb leg pain Time Seen by Provider: 08/09/24 12:37 Source: patient, RN notes reviewed Mode of arrival: ambulatory Limitations: no limitations - History of Present Illness Initial Comments: This is a 53-year-old female who presents to the emergency department for headaches and leg pain. States that starting yesterday she developed intermittent headaches and discomfort in her bilateral lower extremities. It occurred intermittently throughout the day. States that when the pain got really bad she felt like she could not move. States that she is currently essentially asymptomatic and is overall feeling much better, however she is concerned about the symptoms that occurred as they are not usual for her. States that she almost feels like she is starting to get sick. 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 Denies any coughing, congestion, chest pain, or shortness of breath. MD Complaint: headache - Related Data Home Medications Medication Instructions Recorded Confirmed Atorvastatin [Lipitor] 20 mg PO HS 09/16/18 08/20/23 Fluticasone Nasal Isabella [Flonase 1 spray EA NOSTRIL DAILY 08/20/23 08/20/23 Nasal Isabella] Insulin Glargine,Hum.rec.anlog 20 units SQ DAILY 08/20/23 08/20/23 [Lantus Solostar Pen] Omeprazole 20 mg PO HS 08/20/23 08/20/23 Pioglitazone [Actos] 15 mg PO DAILY 08/20/23 08/20/23 Semaglutide [Ozempic] 25 mg SQ WEEKLY 08/20/23 08/20/23 Allergies Allergy/AdvReac Type Severity Reaction Status Date / Time Sulfa (Sulfonamide AdvReac Nausea & Verified 08/09/24 12:09 Antibiotics) Vomiting sulfamethoxazole AdvReac Nausea & Verified 08/09/24 12:09 [From Bactrim] Vomiting trimethoprim [From Bactrim] AdvReac Nausea & Verified 08/09/24 12:09 Vomiting Review of Systems ROS Statement: Those systems with pertinent positive or pertinent negative responses have been documented in the HPI. ROS Other: All systems not noted in ROS Statement are negative. Past Medical History Past Medical History: Diabetes Mellitus, GERD/Reflux, Hyperlipidemia, Hypertension, Liver Disease, Musculoskeletal Disorder, Pneumonia, Thyroid Disorder Additional Past Medical History / Comment(s): HEAD INJURY/concussion due to a fall at age 6, hx kidney stones, thyroid nodules, Degenerative Disc Disease, restless leg syndrome, gallstones, fatty liver. History of Any Multi-Drug Resistant Organisms: None Reported Past Surgical History: Section, Joint Replacement, Orthopedic Surgery, Tubal Ligation Additional Past Surgical History / Comment(s): Section X1, bilateral nephrostolithotomy, nephrostomy tubes/later removal, right hip replacement, parathyroid biopsy, bilateral carpel tunnel surgery. Past Anesthesia/Blood Transfusion Reactions: No Reported Reaction Additional Past Anesthesia/Blood Transfusion Reaction / Comment(s): Sami trophobia. Past Psychological History: Depression Smoking Status: Current some day smoker Past Alcohol Use History: None Reported Past Drug Use History: None Reported - Past Family History Father Family Medical History: Deep Vein Thrombosis (DVT) Additional Family Medical History / Comment(s): Quadruple Bypass. Sister(s) Family Medical History: Diabetes Mellitus Mother Family Medical History: Cancer Additional Family Medical History / Comment(s): LUNG Cancer. General Exam Limitations: no limitations General appearance: alert, in no apparent distress Head exam: Present: atraumatic, normocephalic, normal inspection Eye exam: Present: normal appearance, PERRL, EOMI. Absent: scleral icterus, conjunctival injection, periorbital swelling Neck exam: Present: normal inspection, full ROM. Absent: tenderness, meningismus, lymphadenopathy Respiratory exam: Present: normal lung sounds bilaterally. Absent: respiratory distress, wheezes, rales, rhonchi, stridor Cardiovascular Exam: Present: regular rate, normal rhythm GI/Abdominal exam: Present: soft, normal bowel sounds. Absent: distended, tenderness, guarding, rebound, rigid Extremities exam: Absent: calf tenderness Neurological exam: Present: alert, oriented X3, CN II-XII intact Psychiatric exam: Present: normal affect, normal mood Skin exam: Present: warm, dry, intact, normal color. Absent: rash Course Vital Signs 08/09/24 08/09/24 08/09/24 12:06 14:09 15:09 Temperature 98.4 F Pulse Rate 116 H 98 Respiratory 18 22 20 Rate Blood Pressure 126/79 124/74 O2 Sat by Pulse 99 97 Oximetry Medical Decision Making - Medical Decision Making This is a 53 year old female who presents to the emergency department for headaches and body aches. Was pt. sent in by a medical professional or institution? @ -No Did you speak to anyone other than the patient for history? @ -No Did you review nursing and triage notes? @ -Yes, and I agree, it is accurate with regards to the patient's symptoms. Were old charts reviewed? @ -No Differential Diagnosis? @ -Differential Headache: Migraine, tension, cluster, carbon monoxide, central venous thrombosis, pension karma temporal arteritis, acute closure glaucoma, intercranial hemorrhage, mastoiditis, sinusitis, head injury, this is not meant to be an all-inclusive list. EKG interpreted by me (3pts min.)? @ -Not obtained X-rays interpreted by me (1pt min.)? @ -Not obtained CT interpreted by me (1pt min.)? @ -Not obtained U/S interpreted by me (1pt. min.)? @ -Not obtained What testing was considered but not performed? (CT, X-rays, U/S, labs)? Why? @ -None What meds were considered but not given? Why? @ -None Did you discuss the management of the patient with other professionals? @ -No Did you reconcile home meds? @ -No Was smoking cessation discussed for >3mins.? @ -No Was critical care preformed (if so, how long)? @ -No Were there social determinants of health that impacted care today? How? (Homelessness, low income, unemployed, alcoholism, drug addiction, transport ation, low edu. Level, literacy, decrease access to med. care, [facility], rehab)? @ -No Was there de-escalation of care discussed even if they declined? (Discuss DNR or withdrawal of care, Hospice)? @ -No What co-morbidities impacted this encounter? (DM, HTN, Smoking, COPD, CAD, Cancer, CVA, Hep., AIDS, mental health diagnosis, sleep apnea, morbid obesity)? @ -None Was patient admitted / discharged? @ -Discharged. Lab work unremarkable. Renal function is stable when compared with prior. COVID, influenza, and RSV testing negative. Patient was asymptomatic for the majority of the visit in the emergency department. States that she got a couple twinges of headaches and leg pain that resolved on their own. She has multiple nonspecific symptoms and the cause is not entirely clear. Advised she try [id number]-[id number] medication like ibuprofen and Tylenol if symptoms return and follow-up with her primary care provider. Patient discharged home in stable condition. Case discussed with ED attending Dr. Watt. Return precautions reviewed in depth, the patient is instructed to return to the emergency department with any new, worsening, or concerning symptoms. Patient verbalized understanding. Undiagnosed new problem with uncertain prognosis? @ -None Drug Therapy requiring intensive monitoring for toxicity (Heparin, Nitro, Insulin, Cardizem)? @ -None Were any procedures done? @ -None Diagnosis/symptom? @ -Headaches, leg pain, feeling unwell Acute, or Chronic, or Acute on Chronic? @ -Acute Uncomplicated (without systemic symptoms) or Complicated (systemic symptoms)? @ -Uncomplicated Side effects of treatment? @ -None Exacerbation, Progression, or Severe Exacerbation] @ -Not applicable Poses a threat to life or bodily function? @ -No - Lab Data Result diagrams: 08/09/24 13:09 08/09/24 13:09 Lab Results 08/09/24 08/09/24 08/09/24 Range/Units 13:09 13:09 13:09 WBC 3.51 L (4.50-10.00) 10*3/uL RBC 4.64 (4.10-5.20) 10*6/uL Hgb 13.7 (12.0-15.0) g/dL Hct 39.6 (37.2-46.3) % MCV 85.3 (80.0-97.0) fL MCH 29.5 (27.0-32.0) pg MCHC 34.6 (32.0-37.0) g/dL Plt Count 149 (140-440) 10*3/uL MPV 10.2 (9.5-12.2) fL Immature Gran % (Auto) 0.3 % Neutrophils % 67.4 % Lymphocytes % 21.7 % Monocytes % 9.7 % Eosinophils % 0.0 % Basophils % 0.9 % Immature Gran # 0.01 (0.00-0.04) 10*3/uL Neutrophils # 2.37 (1.80-7.70) 10*3/uL Lymphocytes # 0.76 L (0.90-5.00) 10*3/uL Monocytes # 0.34 (0.20-1.00) 10*3/uL Eosinophils # 0.00 L (0.04-0.35) 10*3/uL Basophils # 0.03 (0.00-0.10) 10*3/uL Sodium 138 (137-145) mmol/L Potassium 3.8 (3.5-5.1) mmol/L Chloride 104 (98-107) mmol/L Carbon Dioxide 24 (22-30) mmol/L Anion Gap 10 mmol/L BUN 19 H (7-17) mg/dL Creatinine 1.28 H (0.52-1.04) mg/dL Est GFR (CKD-EPI)AfAm 55 (>60 ml/min/1.73 sqM) Est GFR (CKD-EPI)NonAf 48 (>60 ml/min/1.73 sqM) Glucose 124 H (74-99) mg/dL Plasma Lactic Acid Colton 0.8 (0.7-2.0) mmol/L Calcium 9.2 (8.4-10.2) mg/dL Phosphorus 3.7 (2.5-4.5) mg/dL Magnesium 1.8 (1.6-2.3) mg/dL Total Bilirubin 1.1 (0.2-1.3) mg/dL AST 30 (14-36) U/L ALT 20 (4-34) U/L Alkaline Phosphatase 115 (38-126) U/L Total Protein 7.0 (6.3-8.2) g/dL Albumin 4.1 (3.5-5.0) g/dL Influenza Type A (PCR) (Not Detectd) Influenza Type B (PCR) (Not Detectd) RSV (PCR) (Not Detectd) SARS-CoV-2 (PCR) (Not Detectd) 08/09/24 Range/Units 13:09 WBC (4.50-10.00) 10*3/uL RBC (4.10-5.20) 10*6/uL Hgb (12.0-15.0) g/dL Hct (37.2-46.3) % MCV (80.0-97.0) fL MCH (27.0-32.0) pg MCHC (32.0-37.0) g/dL Plt Count (140-440) 10*3/uL MPV (9.5-12.2) fL Immature Gran % (Auto) % Neutrophils % % Lymphocytes % % Monocytes % % Eosinophils % % Basophils % % Immature Gran # (0.00-0.04) 10*3/uL Neutrophils # (1.80-7.70) 10*3/uL Lymphocytes # (0.90-5.00) 10*3/uL Monocytes # (0.20-1.00) 10*3/uL Eosinophils # (0.04-0.35) 10*3/uL Basophils # (0.00-0.10) 10*3/uL Sodium (137-145) mmol/L Potassium (3.5-5.1) mmol/L Chloride (98-107) mmol/L Carbon Dioxide (22-30) mmol/L Anion Gap mmol/L BUN (7-17) mg/dL Creatinine (0.52-1.04) mg/dL Est GFR (CKD-EPI)AfAm (>60 ml/min/1.73 sqM) Est GFR (CKD-EPI)NonAf (>60 ml/min/1.73 sqM) Glucose (74-99) mg/dL Plasma Lactic Acid Colton (0.7-2.0) mmol/L Calcium (8.4-10.2) mg/dL Phosphorus (2.5-4.5) mg/dL Magnesium (1.6-2.3) mg/dL Total Bilirubin (0.2-1.3) mg/dL AST (14-36) U/L ALT (4-34) U/L Alkaline Phosphatase (38-126) U/L Total Protein (6.3-8.2) g/dL Albumin (3.5-5.0) g/dL Influenza Type A (PCR) Not Detected (Not Detectd) Influenza Type B (PCR) Not Detected (Not Detectd) RSV (PCR) Not Detected (Not Detectd) SARS-CoV-2 (PCR) Not Detected (Not Detectd) Disposition Clinical Impression: Headache, Leg pain Disposition: HOME SELF-CARE Instructions (If sedation given, give patient instructions): Acute Headache (ED), Leg Pain (ED) Additional Instructions: Return to the emergency department with any new, worsening, or concerning symptoms. Alternate with ibuprofen and Tylenol if your symptoms return. Follow up with your primary care provider in 1-2 days. Is patient prescribed a controlled substance at d/c from ED?: No Referrals: Ramiro Chávez MD [Primary Care Provider] - 1-2 days Time of Disposition: 14:51
[2024-08-09] MEDS: SODIUM CHLORIDE 0.9% 1,000 ML IV ONE (13:12)
[2024-08-09 13:15] LABS: Basophils # (A) 0.03 10*3/uL (0.00-0.10); Basophils % (A) 0.9 %; HCT 39.6 % (37.2-46.3); HGB 13.7 g/dL (12.0-15.0); Lymphocytes # (A) 0.76 10*3/uL (0.90-5.00); Lymphocytes % (A) 21.7 %; MCH 29.5 pg (27.0-32.0); MCHC 34.6 g/dL (32.0-37.0); MCV 85.3 fL (80.0-97.0); Mean Platelet Volume 10.2 fL (9.5-12.2); Monocytes # (A) 0.34 10*3/uL (0.20-1.00); Monocytes % (A) 9.7 %; Neutrophils # (A) 2.37 10*3/uL (1.80-7.70); Neutrophils % (A) 67.4 %; Platelet Count 149 10*3/uL (140-440); RBC 4.64 10*6/uL (4.10-5.20); RDW 12.8 % (11.5-14.5); WBC 3.51 10*3/uL (4.50-10.00)
[2024-08-09 13:35] LABS: ALT 20 U/L (4-34); AST 30 U/L (14-36); African American GFR (CKD) 55 (>60 ml/min/1.73 sqM); Albumin 4.1 g/dL (3.5-5.0); Alkaline Phosphatase 115 U/L (38-126); Anion Gap 10 mmol/L; Blood Urea Nitrogen 19 mg/dL (7-17); Calcium 9.2 mg/dL (8.4-10.2); Carbon Dioxide 24 mmol/L (22-30); Chloride 104 mmol/L (98-107); Glucose 124 mg/dL (74-99); Magnesium 1.8 mg/dL (1.6-2.3); Non-African American GFR(CKD) 48 (>60 ml/min/1.73 sqM); Phosphorus 3.7 mg/dL (2.5-4.5); Potassium 3.8 mmol/L (3.5-5.1); Sodium 138 mmol/L (137-145); Total Bilirubin 1.1 mg/dL (0.2-1.3)
[2024-08-09 14:03] LABS: Influenza A Not Detected (Not Detectd); Influenza B Not Detected (Not Detectd); RSV Not Detected (Not Detectd)
[2024-08-09 15:10] VITALS: BP 124/74; PULSE 98; RESP 20
== END 2024-08-09 15:10 | disposition home or self-care (01) ==
LOC: EC 12:02
DX: M79.605 Pain in left leg (principal); M79.604 Pain in right leg; R51.9 Headache, unspecified; F17.200 Nicotine dependence, unspecified, uncomplicated; Z88.2 Allergy status to sulfonamides; Z88.1 Allergy status to other antibiotic agents
CPT/HCPCS: 36415; 80053; 83605; 83735; 84100; 85025; 87636; 96360; 96361; 99284

== ENCOUNTER → 2024-09-09 | Outpatient (CLI) | payer BC ==
--- NOTE | 2024-09-09 18:07 | CTL ---
EXAMINATION TYPE: CT Low Dose Lung DATE OF EXAM: 09/09/2024 9:48 AM COMPARISON: 05/07/2024, thyroid ultrasound 08/07/2023 SCREENING VISIT: Subsequent CT DIAGNOSTIC QUALITY: Satisfactory CLINICAL INDICATION: Female, 53 years old with history of R91.1 SPN, SPN. CURRENT SMOKER 1 PPD X 40 Y EARS, Lung cancer screening, History of tobacco use. TECHNIQUE: Low dose computed tomography scan was performed through the chest at 1 mm thick sections a nd reconstructed images in the coronal plane at 1 mm thick sections. Contrast used: mL of , (none if empty) Oral contrast used: (none if empty) CT DLP: 110.7 mGycm, Automated exposure control for dose reduction was used. CT CTDI: 3.2 mGy, Automated exposure control for dose reduction was used. FINDINGS: LUNG NODULES: Present, detailed below: 1. There is a 0.3 cm peripheral density right lateral upper lobe. Series 4 image 65. This is more pro minent than the comparison. 2. There is a 0.6 cm transverse dimension nodular density within the superior segment left lower lobe , series 4 image 142. This is stable from comparison. LUNGS: COPD: Severity: None Fibrosis: Severity: None Lymph nodes: None Other findings: None RIGHT PLEURAL SPACE: Effusion: None Calcification: None Thickening: None Pneumothorax: None LEFT PLEURAL SPACE: Effusion: None Calcification: None Thickening: None Pneumothorax: None HEART: Other: Ascending thoracic aorta at the level the main pulmonary artery measures 3.6 cm. The main pul monary artery at the bifurcation measures 2.5 cm. Heart Size: Normal Coronary calcification: No significant coronary artery calcifications. Pericardial effusion: None OTHER FINDINGS: Upper abdomen: Normal Bony thorax: Normal Supraclavicular region: There is marked enlargement of the thyroid. There are couple small calcificat ions within the thyroid. Findings appear similar to the May exam. Additional workup with ultraso und is recommended IMPRESSION: 1. Stable nodule superior segment left lower lobe. 2. Stable punctate peripheral based nodule right upper lobe. 3. Markedly enlarged thyroid.. Correlate with ultrasound FOLLOW UP CT CHEST RECOMMENDATION: Follow up low-dose CT chest [address] LUNG RAD: Lung-Rad 3 Probably Benign S modifier: thyroid goiter. [facility], Workstation: [id number], 09/09/2024 6:05 PM
== END | disposition home or self-care (01) ==
LOC: RADCTMAIN 09:28
PROVIDERS: ATTEND Family Medicine
DX: Z12.2 Encounter for screening for malignant neoplasm of respiratory organs (principal); R91.1 Solitary pulmonary nodule; F17.210 Nicotine dependence, cigarettes, uncomplicated; E04.9 Nontoxic goiter, unspecified
CPT/HCPCS: 71271